=== PATIENT | male | born 1950 | race Caucasian/White ===

== ENCOUNTER 2017-05-26 13:03 | Inpatient (IN) | payer MEDICARE, OTHER, SELFPAY ==
[2017-05-26] VITALS (21 sets, daily range): BP systolic 115–202; BP diastolic 79–119; PULSE 109–125; RESP 13–28; TEMP 36–36.7; O2SAT 94–100; BMI 30.7; BMI 29.7
--- NOTE | 2017-05-26 13:38 | EKG12_ITS ---
Test Reason : ABD PAIN Blood Pressure : / mmHG Vent. Rate : 137 BPM Atrial Rate : 249 BPM P-R Int : 000 ms QRS Dur : 088 ms QT Int : 318 ms P-R-T Axes : 000 039 101 degrees QTc Int : 480 ms Atrial flutter with variable A-V block Nonspecific T wave abnormality Abnormal ECG Confirmed by STEPHANIE ALVARENGA ([id number]), photograph editor BRENNA MIMS ([id number]) on 05/29/2017 1:16:53 PM Referred By: ANNIKA Confirmed By:STEPHANIE ALVARENGA
--- NOTE | 2017-05-26 13:40 | VDLE_ITS ---
Reason For Study: LEG SWELLING RIGHT LEFT GSV is normal. CFV is compressible, spontaneous, phasic, CFV is compressible, spontaneous, competent competent, and demonstrates normal and demonstrates pulsatile venous flow. augmentation. FV is compressible, spontaneous, competent and demonstrates pulsatile venous flow. POP V is compressible, spontaneous, competent and demonstrates pulsatile venous flow. T/P Trunk is compressible. PTV is compressible. RT PerV is compressible. Procedure Exam performed portable in ED. A preliminary report was called and/or faxed to Dr. Yadav. Interpretation Summary There is no evidence of right lower extremity deep vein thrombosis. Right greater saphenous vein appears patent and compressible segmentally. Pulsitile venous flow noted consistent with proximal venous hypertension. Clinical correlation would be appropriate. Normal flow patterns left common femoral vein.. Ordering Physician: Christie Yadav Referring Physician: Young Emerson MD Performed By: Stephany Anna RVT
--- NOTE | 2017-05-26 13:44 | NURSING ---
NO OLD EKGS
[2017-05-26 14:09] LABS: Absolute Lymphocyte Count 2.17 X10^3/ul (0.83-4.51); Absolute Neutrophil Count 9.7 X10^3/uL (2.0-7.7); Basophil# 0.11 X10^3/uL; Basophil% 0.8 % (0-1); Eosinophil# 0.17 X10^3/uL; Eosinophils% 1.3 % (0-5); Hematocrit 44.1 % (40-54); Hemoglobin 14.2 g/dl (13.0-16.5); Lymphocyte # 2.17 X10^3/ul (4.0); Lymphocyte % 16.4 % (19-41); Mean Corp Hgb Conc 32.2 g/gl (32-36); Mean Corpuscular Hgb 29.7 pg (27.0-32.0); Mean Corpuscular Volume 92.3 fL (80-94); Mean Platelet Vol. 10.7 fl (6.2-12.0); Monocyte# 0.99 X10^3/uL; Monocyte% 7.5 % (0-10); Neutrophil # 9.74 X10^3/uL (2.7-7.7); Neutrophil % 73.8 % (47-70); Platelet Count 210 K/mm3 (150-450); RBC Distribution Width CV 14.1 % (11.6-14.6); RBC Distribution Width SD 46.1 fl (35.1-43.9); Red Blood Count 4.78 M/mm3 (4.6-6.2); White Blood Count 13.2 K/mm3 (4.4-11.0)
[2017-05-26 14:11] LABS: POSITIVE COUNT NO; POSITIVE DIFFERENTIAL NO; POSITIVE MORPHOLOGY NO
[2017-05-26 14:25] LABS: AST(SGOT) 25 U/L (15-37); Alanine Aminotransfer ALT/SGPT 55 U/L (12-78); Albumin, Serum 3.8 g/dL (3.4-5.0); Alkaline Phosphatase 96 U/L (45-117); Anion Gap 11 (5-15); BUN 19 mg/dL (7-18); BUN/Creat Ratio 14.4 RATIO (10-20); Calcium,Total 8.9 mg/dL (8.5-10.1); Chloride 108 mmol/L (98-107); Creatinine, Serum 1.32 mg/dL (0.70-1.30); EST Glomerular Filtration Rate 58 mL/min (>60); Est Glom Filt Rate - Afr Amer 70 mL/min (>60); Estimated Creatinine Clearance 63.05 ml/min; Globulin 3.5 g/dL (2.2-4.2); Glucose 110 mg/dL (70-110); Lipase 116 U/L (73-393); Potassium 4.3 mmol/L (3.5-5.1); Protein, Total 7.3 g/dL (6.4-8.2); Sodium Level 141 mmol/L (136-145)
[2017-05-26 14:26] LABS: D-Dimer Quantitative (DVT/PE) 0.84 FEU/ug/m (0.27-0.49)
--- NOTE | 2017-05-26 14:27 | ED.RN ---
D DIMER 0.84. DR ROBLERO AWARE
--- NOTE | 2017-05-26 14:28 | RAD_ITS ---
STUDY: X-RAY CHEST REASON FOR EXAM: Male, 66 years old. Shortness of breath. TECHNIQUE: Single AP portable view of the chest. COMPARISON: None. FINDINGS: EKG electrodes are seen. There is enterogastric congestion and mild CHF. There is no demonstrated pleural abnormality. There is moderate cardiac enlargement. Normal mediastinum and davion. Normal visualized pulmonary arteries. Normal visualized aortic arch and descending thoracic aorta. Normal visualized thoracic spine. Normal visualized ribs, clavicles, and shoulders. There is no demonstrated abnormality of the visualized soft tissue structures of the upper abdomen. RAD/Chest 1 View (Portable) IMPRESSION: Vascular congestion and mild CHF. Cardiomegaly. Electronically Signed: Felix Jiménez MD at 15:23 EST Tel [phone], Service support ,
[2017-05-26 14:30] LABS: BNP,B-Type NATRIURETIC PEPTIDE 874.6 pg/mL (0-100)
[2017-05-26] MEDS: dilTIAZem 25 MG/5 ML Vial 10 MG IV BOLUS (14:40)
[2017-05-26] MEDS: dilTIAZem 25 MG/5 ML Vial 20 MG IV BOLUS (15:20)
--- NOTE | 2017-05-26 15:48 | ED.VISSUMM ---
- ER Visit Summary Date of Service: 05/26/17 Chief Complaint: Shortness of breath and abdominal swelling History of Present Illness: The patient is a 66 M with progressive shortness of breath since . He states that he was really bad the week after but never returned to his baseline. He states that he is now unable to lie down due to shortness of breath. He has had increased swelling of his abdomen and his right leg. He was seen by Dr. Young Emerson in the office today and sent to the emergency room. Past medical history significant for atrial flutter. Patient was treated at [facility] in [place] in 2012 for this. He tells me he was on IV medication for 2 weeks to get his rate controlled. He had a heart cath at that time and he tells me there were no blockages. He also had a LAYLA at that time. Patient is currently only on lisinopril. Physical Examination: Blood pressures 202/111, temperature 98.0, heart rate 109, respiratory rate 18, pulse ox 96% on room air. Head and neck examination is unremarkable. Heart is tachycardic. Lung sounds are diminished at the bases. He is speaking full sentences. Abdomen is soft with no focal tenderness but he is distended. He does have 3+ right lower extremity edema 2+ left lower extremity edema. Test Results: EKG reveals atrial flutter with a rate of 137. Lateral T-wave inversions are noted. Portable chest x-ray shows vascular congestion and mild CHF. CBC was a white count of 13.2. Chemistry studies reveal BUN 13 and creatinine 1.32. LFTs and lipase are normal. Troponin is 0.03. BNP is 874. D-dimer 0.84. Venous ultrasound of the right leg is obtained and is unremarkable. Emergency Department Course and Treatment: Patient had 2 doses of Cardizem given, 10 mg followed by 20 mg. Heart rate remains in the 120s. Blood pressure is currently 144/96. I spoke with Dr. Francis, on-call for cardiology. He asked that we start an amiodarone drip and treat the patient with Lovenox and IV Lasix. In regards to his elevated d-dimer, patient is not able to lie down flat for a CT of his chest, and he is treated with Lovenox regardless. My suspicion for a PE is very low. Treatment Plan: [] Disposition: Admit Impression: 1. Atrial flutter with RVR 2. CHF This note was generated with [employer] dictation software. It may contain incorrect words, spelling, and punctuation that were not noted in review of the chart prior to signing ED Disposition - Plan for ED Patient: Chief Complaint: Abd Pain Referrals: Young Emerson MD [Primary Care Provider] -
--- NOTE | 2017-05-26 15:52 | ED.DCSUM_ITS ---
- ER Visit Summary Date of Service: 05/26/17 Chief Complaint: Shortness of breath and abdominal swelling History of Present Illness: The patient is a 66 M with progressive shortness of breath since . He states that he was really bad the week after but never returned to his baseline. He states that he is now unable to lie down due to shortness of breath. He has had increased swelling of his abdomen and his right leg. He was seen by Dr. Young Emerson in the office today and sent to the emergency room. Past medical history significant for atrial flutter. Patient was treated at [facility] in [place] in 2012 for this. He tells me he was on IV medication for 2 weeks to get his rate controlled. He had a heart cath at that time and he tells me there were no blockages. He also had a LAYLA at that time. Patient is currently only on lisinopril. Physical Examination: Blood pressures 202/111, temperature 98.0, heart rate 109 , respiratory rate 18, pulse ox 96% on room air. Head and neck examination is unremarkable. Heart is tachycardic. Lung sounds are diminished at the bases. He is speaking full sentences. Abdomen is soft with no focal tenderness but he is distended. He does have 3+ right lower extremity edema 2+ left lower extremity edema. Test Results: EKG reveals atrial flutter with a rate of 137. Lateral T-wave inversions are noted. Portable chest x-ray shows vascular congestion and mild CHF. CBC was a white count of 13.2. Chemistry studies reveal BUN 13 and creatinine 1.32. LFTs and lipase are normal. Troponin is 0.03. BNP is 874. D -dimer 0.84. Venous ultrasound of the right leg is obtained and is unremarkable. Emergency Department Course and Treatment: Patient had 2 doses of Cardizem given , 10 mg followed by 20 mg. Heart rate remains in the 120s. Blood pressure is currently 144/96. I spoke with Dr. Francis, on-call for cardiology. He asked that we start an amiodarone drip and treat the patient with Lovenox and IV Lasix. In regards to his elevated d-dimer, patient is not able to lie down flat for a CT of his chest, and he is treated with Lovenox regardless. My suspicion for a PE is very low. Treatment Plan: [] Disposition: Admit Impression: 1. Atrial flutter with RVR 2. CHF This note was generated with [employer] dictation software. It may contain incorrect words, spelling, and punctuation that were not noted in review of the chart prior to signing ED Disposition - Plan for ED Patient: Chief Complaint: Abd Pain Referrals: Young Emerson MD [Primary Care Provider] -
--- NOTE | 2017-05-26 16:02 | NURSING ---
114 CHF EXAC WITH AFLUTTER WITH RVR JAMES
[2017-05-26] MEDS: Furosemide 40 MG/4 ML Vial IV (16:03)
[2017-05-26] MEDS: Enoxaparin 100 MG/ML Syringe 110 MG SC (16:04)
--- NOTE | 2017-05-26 17:17 | PCM.CONS.C ---
Problem List (1) Atrial flutter by electrocardiogram Status: Acute (2) Dyspnea Status: Acute (3) Edema Status: Acute Reason for Consult Date of Consultation: 05/26/17 Reason for Consultation: Atrial flutter, atrial fibrillation, hypertension, lower extremity edema, shortness of breath/dyspnea on exertion. History of Present Illness: The patient is a 66 year old M, nondiabetic, previous smoker of approximately 30 pack years, quit about 1 year ago, previous heavy drinker for approximately 30 years as well again quit about 1 year ago. 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 Ashlie Nunez [facility] for what sounds like atrial fibrillation first diagnosed in 2012. According to the patient at that time he presented with atrial fibrillation and underwent a left heart catheterization via his right radial approach which was reportedly negative, followed by LAYLA guided DC cardioversion. Patient was transiently on sotalol and Toprol, but is no longer on that. In 2015, the patient noted bright red blood per rectum and sought medical attention and underwent a colonoscopy which according to the patient demonstrated diverticulosis and internal hemorrhoids. He has had no further episodes up until recently of bright red blood per rectum. In March 2016, around [facility], the patient describes a flulike illness for approximately 2 weeks time which required him to be bedbound and convalesced on his own. He did not seek medical attention. He never quite felt back to himself after he recovered and is complained of shortness of breath, fatigue, dyspnea on exertion since that time. Over the last 3 weeks he has had progressively worsening lower extremity edema, particularly on the right lower extremity, shortness of breath, dyspnea on exertion, orthopnea and PND requiring him to sleep only in an upright recliner. Patient sought medical consultation with his PCP Dr. Young Emerson today describing his shortness of breath and bright red blood per rectum. He was found to be tachycardic and referred immediately to [facility] ER. In the ER his EKG showed atrial flutter with 2-1 conduction, no acute changes. The patient also complained of palpitations over the last several weeks. The patient used to drink a copious amount of caffeine but now drinks less than one pot of coffee on a day, does not drink alcohol, denies any illegal drugs. He cannot recall why he is no longer on sotalol. Patient was given 2 doses of IV Cardizem in the ER which did not change his heart rate whatsoever, and was started on amiodarone drip. Pulmonary ultrasound of his right lower extremity demonstrated no evidence of DVT. No CTA has been performed as of yet. D-dimer was mildly elevated at 0.84. Troponins are negative per [] Past Medical History Allergies/Adverse Reactions: Allergies No Known Allergies Allergy (Verified 05/26/17 13:08) Home Medications: Ambulatory Orders Medication Instructions Recorded Lisinopril [Zestril] 10 mg PO DAILY 05/26/17 Smoking Status: Former smoker Review of Systems - Review of Systems General: Denies: Fever, Night Sweats, Fatigue Cardiovascular: Reports: Shortness of Breath with Exertion, Peripheral Edema, Palpitations. Denies: Chest Discomfort, Shortness of Breath, Orthopnea, PND, Lightheadedness, Dizziness, Near Syncope, Syncope Respiratory: Denies: Cough, Sputum Production, Hemoptysis Gastrointestinal: Denies: Hematemesis, Hematochezia, Melena Genitourinary: Denies: Dysuria, Hematuria Skin: Denies: Rash Subjectve: Patient laying in bed, no acute distress. Objective: Vital Signs Temp Pulse Resp BP Pulse Ox 98.1 F 124 H 19 H 153/114 H 97 05/26/17 17:07 05/26/17 17:07 05/26/17 17:07 05/26/17 17:07 05/26/17 17:07 Oxygen Flow Rate 2 Oxygen Delivery Method Room Air Weight: 225 lb 8.526 oz Body Mass Index (BMI) 29.7 General: Awake, Alert, Oriented x 3 HEENT: PERRL, EOMI, Sclera Non Icteric Neck: Supple, Good ROM, No Lymph Node Enlargement Lungs: Clear to auscultation Cardiovascular: Regular Rhythm, Normal S1, Normal S2, No Murmurs, No Rubs, No Gallops Vascular: No Carotid Bruits, Normal Femoral Pulses, Normal Radial Pulses, Normal Dorsalis Pedal Pulse, Normal Posterior Tibial Pulses Abdomen: Bowel Sounds Present, Soft, Non Tender, No HSM, No Organomegaly Extremities: No Cyanosis, No Clubbing, No edema Neurological: No Focal Motor or Sensory Deficit Rhythm: EKG: Atrial flutter with 2-1 conduction, no acute changes. ECHO: Pending. Stress Test: Cardiac Cath: PCI: CT Surgery: Holter monitor: EPS: PPM: CXR: Chest CT Scan: Assessment/Plan 1. Atrial flutter: Patient appears to be in atrial flutter with 2-1 conduction and a heart rate of around 125 bpm. Patient had received 2 doses of IV Cardizem without much effect. Apparently the patient has a known history of atrial fibrillation in the past, however he has not been on anticoagulation and is no longer on sotalol or beta-foreign therapy. I recommend that we continue IV amiodarone therapy in attempt to control his heart rate, combined with starting him on Coreg 6.25 mg p.o. twice daily in an attempt to control his heart rate and his blood pressure. Recommend ruling him out for myocardial infarction with troponins ?3 sets, and if abnormal he may require repeat catheterization. In addition I recommend subcu Lovenox 1 mg/kg subcu twice daily for any coagulation coverage while he is in atrial flutter. In addition I recommend checking his TSH and T4. Recommend that we undergo a 2D echo with Doppler to determine if he has any cardiomyopathy as a result of his arrhythmia. In addition I recommend that we attempt to find his catheterization results from 2012 at [facility] in [place] to confirm that his coronary arteries had no significant coronary disease. If the patient's atrial flutter is unable to be controlled with an a hypertensive and antiarrhythmic therapy, the patient may require a LAYLA guided DC cardioversion. In addition he may require EP evaluation as he has a history of bright red blood per rectum, diverticulosis and hemorrhoids and is not a good long-term anticoagulation therapy patient. 2. Biventricular failure: Patient has evidence of biventricular failure given his orthopnea, PND, shortness of breath and lower extremity edema. Patient may have had a cardiomyopathy as a result of his flulike illness and March 2016. Echocardiogram is pending. Recommend IV Lasix 40 mg twice daily until he reaches his dry weight. Ultrasound of his right lower extremity is negative for thrombus. There may want to consider CTA of his chest to rule out pulmonary embolism. 3. Thank you very much for the opportunity to precipitate the cardiac care of your patient. Consultation time took place between 445 and 5:25 PM. Code Visit Inpatient E&M: 75543 Init Hosp L2
--- NOTE | 2017-05-26 17:28 | ECHOD_ITS ---
Reason For Study: AFIB/FLUTTER Procedure This was a 2D Doppler, Color Flow transthoracic echocardiogram. Exam performed portable in patient room. Left Ventricle Severely dilated left ventricle. The estimated ejection fraction is 10-15 %. Basal anteroseptal: Akinetic. Mid-Anterior : Severely Hypokinetic. Mid-Inferior: Severely Hypokinetic. There are regional wall motion abnormalities as specified. Right Ventricle Moderately dilated right ventricle. Normal systolic function. Atria The left atrium is severely enlarged. The right atrium is severely enlarged. Normal atrial septum. Mitral Valve The mitral valve is structurally normal. No prolapse or stenosis seen. Tricuspid Valve Normal tricuspid valve. Trivial tricuspid valve insufficiency. Right ventricular systolic pressure estimated to be 42 mmHg. Mild pulmonary hypertension. Aortic Valve Trisinus/trileaflet aortic valve. Pulmonic Valve Normal pulmonic valve. Great Vessels Normal aortic root. Normal arch. Normal inferior vena cava. Inferior vena cava collapse with sniff. Pericardium/Pleural No pericardial effusion. MMode/2D Measurements & Calculations LVIDd: 6.1 cm IVSd: 1.1 cm Ao root diam: 3.4 cm LVIDs: 5.3 cm LVPWd: 1.3 cm LA dimension: 4.2 cm RVDd: 3.0 cm FS: 12.9 % LAV(MOD-bp): 90.0 ml LA A4 area: 26.5 cm2 RA A4 area: 26.7 cm2 LAV(MOD-bp) Indexed: 39.8 ml/m2 LAV(MOD-sp2): 83.9 ml LAV(MOD-sp4): 93.6 ml Doppler Measurements & Calculations MV E max ben: 100.8 cm/sec Lat Peak E' Ben: 4.1 cm/sec Med Peak E' Ben: 3.9 cm/sec E/E' lat: 24.8 E/E' med: 26.0 Ao V2 max: 85.8 cm/sec LV V1 max: 63.5 cm/sec PA V2 max: 55.3 cm/sec Ao max P.9 mmHg LV V1 max P.6 mmHg TR max ben: 234.1 cm/sec TR max P.0 mmHg Interpretation Summary Severely dilated left ventricle. The estimated ejection fraction is 10-15 %. Basal anteroseptal: Akinetic. Mid-Anterior : Severely Hypokinetic. Mid-Inferior: Severely Hypokinetic. There are regional wall motion abnormalities as specified. Moderately dilated right ventricle. The left atrium is severely enlarged. The right atrium is severely enlarged. Trivial tricuspid valve insufficiency. Right ventricular systolic pressure estimated to be 42 mmHg. Mild pulmonary hypertension. There is no comparison study available. Ordering Physician: José Miguel Francis Referring Physician: Young Emerson Performed By: Annmarie Kamara, LANCE, RVT
--- NOTE | 2017-05-26 17:29 | CT_ITS ---
STUDY: CTA CHEST REASON FOR EXAM: Male, 66 years old. Dyspnea, elevated d-dimer. RADIATION DOSAGE (If Supplied By Facility): CTDIvol = ( 14.42 ) mGy, DLP = ( 595.52 ) mGycm TECHNIQUE: The examination was performed with the intravenous administration of 100 ml of Isovue 370 contrast material. Post-processing of the angiographic images was performed, with multiplanar reformation and 3D reconstruction. Individualized dose optimization techniques were used for this CT. COMPARISON: None. FINDINGS: Normal enhancement of the main pulmonary artery and right and left pulmonary arteries. Normal enhancement of the bilateral peripheral pulmonary arteries. There is no demonstrated pulmonary embolism. Normal thoracic aorta and visualized great vessels. There is no demonstrated aortic dissection. Normal heart and pericardium. There are scattered mediastinal lymph nodes within the prevascular, aortopulmonary window and paratracheal space with small nodes extending to the right hilar region. Normal hilar regions. Normal visualized trachea and bronchi. The lungs are well expanded. Bilateral diffuse prominent upper lobe centrilobular emphysematous changes are present. There is a demonstrated right upper lobe pleural-based nodule measuring 7 mm as seen on series 2 image 15. Within the right lower lobe medial segment focal region of consolidation with underlying nodule not completely excluded as seen on series 2 image 48. Small right pleural effusion is present. Normal chest wall structures. Normal osseous structures. Normal visualized upper abdomen. CT/CTA Chest W/WO Contrast IMPRESSION: 1. No evidence of pulmonary embolism or aortic dissection. 2. There is a small right pleural effusion with a right lower lobe medial pleural region of consolidation with underlying nodule not excluded. There is an additional right upper lobe pleural-based 7 mm nodule. Multiple mediastinal dominant conglomerate lymph nodes are noted with some extent to the right hilar region. Overall concern is for infectious etiology and pleural effusion with reactive lymphadenopathy. Recommend follow-up imaging to document stability versus resolution as underlying neoplastic process is not excluded. Additional follow-up likely necessary if right upper lobe pleural nodule persists. Electronically Signed: Haroon Hyatt DO at 19:40 EST , Service support ,
--- NOTE | 2017-05-26 18:09 | HP.PCM_ITS ---
Problem List (1) Atrial fibrillation with RVR Status: Acute (2) CHF (congestive heart failure) Status: Acute (3) Diverticulosis Status: Chronic (4) Internal hemorrhoid Status: Chronic (5) GI bleed Status: Chronic (6) Atrial flutter by electrocardiogram Status: Chronic History of Present Illness Date of Admission: 05/26/17 Chief Complaint: shortness of breath The patient is a 66 year old M presents with dyspnea on exertion is been going on for the past month. Patient said that before this patient had an illness that he described as the flu where he is having fevers chills and malaise. Patient is also been having constipation. Yesterday, while watching the first football player came, patient felt that he had wet himself going to find out that he had nuha hematochezia. That resolved after about 15 minutes and has had 6 bowel movements since and have all been without blood or melena. Patient was concerned about some right upper quadrant pain is having as well as constipation and saw his primary care doctor, Dr. Emerson, today. There is been was concerned and sent the patient to the emergency room. Patient was found in CHF plus atrial fibrillation with RVR. Patient did receive IV Lasix and as well as a therapeutic dose Lovenox. Patient was seen by cardiology and has been started on amiodarone drip but his heart rate still is in the 120s. [] Past Medical History Past Medical History (Chronic Problems): Chronic Problems Atrial flutter by electrocardiogram (Chronic) Diverticulosis (Chronic) Internal hemorrhoid (Chronic) GI bleed (Chronic) Allergies No Known Allergies Allergy (Verified 05/26/17 13:08) Home Medications: Ambulatory Orders Medication Instructions Recorded Lisinopril [Zestril] 10 mg PO DAILY 05/26/17 Lives: With Family Smoking Status: Former smoker - *Family History Maternal History Items: Heart Disease - Atrial fibrillation Paternal History Items: Heart Disease - Coronary artery disease Review of Systems Constitutional: Denies: Chills, Fever, Weight Change Eyes: Denies: Blurred vision, Double vision HEENT: Denies: Head Aches, Sinus Congestion, Sinus Drainage Cardiovascular: Reports: Edema, Orthopnea. Denies: Chest Pain, Palpitations Respiratory: Reports: Shortness of breath upon exertion. Denies: Cough, Shortness of breath at rest, Sputum production Gastrointestinal: Reports: Abdominal Pain - Right upper quadrant, Constipation, Hematochezia. Denies: Nausea, Vomiting Genitourinary: Denies: Dysuria Musculoskeletal: Denies: Joint Pain, Joint Tenderness Skin: Denies: Rash, Wounds Neurological: Denies: Numbness, Tingling, Focal weakness Psychiatric: Denies: Anxiety, Depression, Homicidal Ideations, Suicidal Ideations Hematologic/ Lymphatic: Reports: Easy Bleeding. Denies: Easy Bruising, Hx of blood clot VTE Information - Inpt Only VTE Present on Admission: No VTE Pharm Prophylaxis ordered?: Yes Patient Problems: Active and Suspected Problems Dyspnea (Acute) Edema (Acute) Atrial fibrillation with RVR (Acute) CHF (congestive heart failure) (Acute) - Physical Exam General: Alert, Oriented x3, Cooperative HEENT: Atraumatic, Normocephalic, - - No scleral icterus Neck: No JVD, No Nuchal Rigidity, Thyroid Normal Size and Texture Lungs: Clear to auscultation, Diminished Cardiovascular: Irregular Rate, Tachycardic Abdomen: Bowel Sounds Present, Soft, Non Tender, Non-Distended, No Hepato- splenomegaly Extremities: No Calf Tenderness, Edema Skin: No rashes, No breakdown Musculoskeletal: No Tenderness to Palpation of Joints or Extremities Neurological: Neuro grossly intact, Sensory exam intact to light touch and pain Psych/Mental Status: Normal Affect, Appropriate Vital Signs Temp Pulse Resp BP Pulse Ox 36.7 C 123 H 18 154/110 H 96 05/26/17 17:30 05/26/17 17:30 05/26/17 17:30 05/26/17 17:30 05/26/17 17:30 Oxygen Flow Rate 2 Oxygen Delivery Method Room Air Weight: 102.3 kg Body Mass Index (BMI) 29.7 EKG showed atrial fibrillation with RVR. Chest x-ray reviewed and showed bilateral pulmonary edema. Laboratory Results 05/26/17 05/26/17 05/26/17 13:55 13:55 13:55 WBC RBC Hgb Hct MCV MCH MCHC RDW RDW Differential Plt Count MPV Immature Gran % (Auto) Neut % (Auto) Lymph % (Auto) Holt % (Auto) Eos % (Auto) Baso % (Auto) Absolute Neuts (auto) Absolute Lymphs (auto) Total Counted D-Dimer Quant (PE/DVT) 0.84 H* Sodium 141 Potassium 4.3 Chloride 108 H Carbon Dioxide 22.0 Anion Gap 11 BUN 19 H Creatinine 1.32 H Estim Creat Clear Calc 63.05 Est GFR (MDRD) Af Amer 70 Est GFR (MDRD) Non-Af 58 L BUN/Creatinine Ratio 14.4 Glucose 110 Calcium 8.9 Total Bilirubin 0.90 Direct Bilirubin 0.30 AST 25 ALT 55 Alkaline Phosphatase 96 Troponin I 0.03 B-Natriuretic Peptide 874.6 H Total Protein 7.3 Albumin 3.8 Globulin 3.5 Lipase 116 05/26/17 13:55 WBC 13.2 H RBC 4.78 Hgb 14.2 Hct 44.1 MCV 92.3 MCH 29.7 MCHC 32.2 RDW 14.1 RDW Differential 46.1 H Plt Count 210 MPV 10.7 Immature Gran % (Auto) 0.200 Neut % (Auto) 73.8 H Lymph % (Auto) 16.4 L Holt % (Auto) 7.5 Eos % (Auto) 1.3 Baso % (Auto) 0.8 Absolute Neuts (auto) 9.7 H Absolute Lymphs (auto) 2.17 Total Counted Not Reportable D-Dimer Quant (PE/DVT) Sodium Potassium Chloride Carbon Dioxide Anion Gap BUN Creatinine Estim Creat Clear Calc Est GFR (MDRD) Af Amer Est GFR (MDRD) Non-Af BUN/Creatinine Ratio Glucose Calcium Total Bilirubin Direct Bilirubin AST ALT Alkaline Phosphatase Troponin I B-Natriuretic Peptide Total Protein Albumin Globulin Lipase Assessment/Plan Active and Suspected Problems Dyspnea (Acute) Edema (Acute) Atrial fibrillation with RVR (Acute) CHF (congestive heart failure) (Acute) 1. Acute heart failure: Echo ordered. Patient on carvedilol, lisinopril and IV Lasix. Cardiology following. 2. Atrial fibrillation with RVR Patient has a known history of atrial fibrillation on amiodarone drip Chads vas score is 3 Patient has been started on Lovenox 3. Right upper quadrant abdominal pain Exam is unremarkable and negative Clemons sign We will check a ultrasound 4. GI bleed Resolved Patient notes a history of internal hemorrhoids as well as diverticulosis. Patient had a colonoscopy 2 years ago that showed no masses at that time. Would just monitor for now but is my feeling that this is likely due to his internal hemorrhoids or diverticulosis. Patient is certainly at higher likelihood to bleed given the fact that he is on therapeutic Lovenox at this time. 5. DVT prophylaxis: Patient is currently anticoagulated. Code Visit Inpatient E&M: 00674 Init Hosp L3
[2017-05-26 18:44] LABS: Cholesterol 166 mg/dL (200); High Density Lipoprotein 27 mg/dL; T4 Free Direct 1.05 ng/dL (0.76-1.46); Thyroid Stim Hormone (TSH) 4.48 uIU/mL (0.358-3.74); Triglycerides 119 mg/dL; Very Low Density Lipoprotein 24 mg/dL (5-40)
[2017-05-26] MEDS: Carvedilol 6.25 MG Tablet PO (21:27)
[2017-05-26] MEDS: Lisinopril 10 MG Tablet PO (21:31)
[2017-05-27] VITALS (27 sets, daily range): BP systolic 114–139; BP diastolic 68–124; PULSE 70–119; RESP 11–23; TEMP 36–36.8; O2SAT 94–100
[2017-05-27 05:17] LABS: Hematocrit 38.9 % (40-54); Hemoglobin 12.8 g/dl (13.0-16.5); Mean Corp Hgb Conc 32.9 g/gl (32-36); Mean Corpuscular Hgb 30.4 pg (27.0-32.0); Mean Corpuscular Volume 92.4 fL (80-94); Platelet Count 165 K/mm3 (150-450); RBC Distribution Width SD 46.1 fl (35.1-43.9); Red Blood Count 4.21 M/mm3 (4.6-6.2); White Blood Count 9.5 K/mm3 (4.4-11.0)
[2017-05-27 05:35] LABS: Scan Indicated on CBC? Y/N NO
[2017-05-27 05:40] LABS: Anion Gap 7 (5-15); BUN 20 mg/dL (7-18); BUN/Creat Ratio 14.9 RATIO (10-20); Calcium,Total 8.4 mg/dL (8.5-10.1); Chloride 107 mmol/L (98-107); Creatinine, Serum 1.34 mg/dL (0.70-1.30); EST Glomerular Filtration Rate 57 mL/min (>60); Est Glom Filt Rate - Afr Amer 69 mL/min (>60); Estimated Creatinine Clearance 62.11 ml/min; Glucose 111 mg/dL (70-110); Sodium Level 139 mmol/L (136-145)
[2017-05-27] MEDS: Carvedilol 6.25 MG Tablet PO ×2 (08:51→21:25)
[2017-05-27] MEDS: 0.9% NaCl Peripheral Flush Adult/Peds IV ×2 (08:52→17:51)
[2017-05-27] MEDS: Furosemide 40 MG/4 ML Vial IV ×2 (08:52→17:51)
--- NOTE | 2017-05-27 09:51 | PCM.PN.CARD ---
Subjectve: Patient feels much better today, off of oxygen, shortness of breath is resolving, but still unable to lay down flat completely. No anginal or chest pain. Still remains in atrial flutter with better rate control. Pulmonary echocardiogram at the bedside shows severe LV dysfunction with biventricular enlargement with an EF around 10-15%. Objective: Vital Signs Temp Pulse Resp BP Pulse Ox 98.3 F 118 H 23 H 128/102 H 97 05/27/17 09:00 05/27/17 09:00 05/27/17 09:00 05/27/17 09:00 05/27/17 09:00 Oxygen Flow Rate 2 Oxygen Delivery Method Room Air Weight: 222 lb 0.088 oz Body Mass Index (BMI) 29.7 Intake and Output for Last 24 Hours 05/25/17 05/26/17 05/27/17 23:59 23:59 23:59 Intake Total 33.9 / 33.9 1144 / 1144 Output Total 850 / 850 Balance 33.9 / 33.9 294 / 294 General: Awake, Alert, Oriented x 3 HEENT: PERRL, EOMI, Sclera Non Icteric Neck: Supple, Good ROM, No Lymph Node Enlargement Lungs: Clear to auscultation Cardiovascular: Irregular Rhythm, Normal S1, Normal S2, No Murmurs, No Rubs, No Gallops Vascular: No Carotid Bruits, Normal Femoral Pulses, Normal Radial Pulses, Normal Dorsalis Pedal Pulse, Normal Posterior Tibial Pulses Abdomen: Bowel Sounds Present, Soft, Non Tender, No HSM, No Organomegaly Extremities: No Cyanosis, No Clubbing, No edema Neurological: No Focal Motor or Sensory Deficit 05/26/17 21:20: Troponin I 0.02 05/27/17 01:29: Troponin I 0.03 05/27/17 05:04: WBC 9.5, RBC 4.21 L, Hgb 12.8 L, Hct 38.9 L, MCV 92.4, MCH 30.4, MCHC 32.9, RDW 14.0, RDW Differential 46.1 H, Plt Count 165, MPV 11.0 05/27/17 05:04: Sodium 139, Potassium 4.0, Chloride 107, Carbon Dioxide 25.0, Anion Gap 7, BUN 20 H, Creatinine 1.34 H, Est GFR (MDRD) Af Amer 69, Est GFR (MDRD) Non-Af 57 L, BUN/Creatinine Ratio 14.9, Glucose 111 H, Calcium 8.4 L 05/27/17 05:04: Troponin I 0.02 Rhythm: Atrial flutter with controlled ventricular response. EKG: Pending. ECHO: Preliminary result shows biventricular enlargement with an EF around 10-15%, severe biatrial enlargement, final result pending. Stress Test: Cardiac Cath: Pending tomorrow PCI: CT Surgery: Holter monitor: EPS: PPM: CXR: Chest CT Scan: Assessment/Plan 1. Atrial flutter: Patient appears to be in atrial flutter with 2-1 conduction and a heart rate of around 125 bpm, now better controlled in the 1 teens but still tachycardic. Patient had received 2 doses of IV Cardizem emergency room without much effect. Apparently the patient has a known history of atrial fibrillation in the past, however he has not been on anticoagulation and is no longer on sotalol or beta-foreign therapy. Given the patient's severe LV dysfunction, I would not recommend sotalol at this time. I believe the only option would be amiodarone transition from IV to p.o. once his heart rate becomes better controlled and his human dynamic status is optimized. I recommend that we continue IV amiodarone therapy in attempt to control his heart rate, combined with starting him on Coreg 6.25 mg p.o. twice daily starting today, and titrating this up from there as his diuresis continues, in an attempt to control his heart rate and his blood pressure. His troponins are negative ?3, and his CT scan is negative for pulmonary embolism to help explain his lower extremity edema and shortness of breath. 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 His symptoms appear to occur after a viral illness in March 2016. I recommend that he undergo 1 more day of IV diuretic therapy so that he can lay flat for a left and right heart catheterization tomorrow morning. In anticipation of that we will continue baby aspirin and loaded with Plavix 300 mg p.o. ?1 now. We will hold his Lovenox tomorrow morning. In addition I recommend subcu Lovenox 1 mg/kg subcu twice daily for any coagulation coverage while he is in atrial flutter. Patient's TSH is slightly elevated but his T4 is within normal limits. Continue amiodarone therapy. In addition I recommend that we attempt to find his catheterization results from 2012 at [facility] in [place] to confirm that his coronary arteries had no significant coronary disease. If the patient's atrial flutter is unable to be controlled with an a hypertensive and antiarrhythmic therapy, the patient may require a LAYLA guided DC cardioversion. In addition he may require EP evaluation as he has a history of bright red blood per rectum, diverticulosis and hemorrhoids and is not a good long-term anticoagulation therapy patient. 2. Biventricular failure: Patient has evidence of biventricular failure given his orthopnea, PND, shortness of breath and lower extremity edema. Patient may have had a cardiomyopathy as a result of his flulike illness and March 2016. Echocardiogram is pending, but preliminary results suggest severe LV dysfunction with biventricular enlargement and biventricular dysfunction with an overall ejection fraction around 10-15%.. Recommend IV Lasix 40 mg twice daily until he reaches his dry weight. Ultrasound of his right lower extremity is negative for thrombus. Recommend discontinuation of lisinopril and starting him on Cozaar 50 mg p.o. daily and titrating up from there for his LV dysfunction. Patient no longer drinks, and no longer smokes. His cardiomyopathy may be a result of a combination of atrial arrhythmia and viral cardiomyopathy, possibly superimposed on previous heavy alcohol use. The risks/benefits of the cardiac catheterization procedure were thoroughly explained the patient with specific attention paid to lack of on-site surgical backup should there be an emergent complication, and the patient is agreed to proceed. 3. Thank you very much for the opportunity to precipitate the cardiac care of your patient. Code Visit Inpatient E&M: 92619 Subs Hosp L2
--- NOTE | 2017-05-27 09:58 | PN.CARD_ITS ---
Subjectve: Patient feels much better today, off of oxygen, shortness of breath is resolving , but still unable to lay down flat completely. No anginal or chest pain. Still remains in atrial flutter with better rate control. Pulmonary echocardiogram at the bedside shows severe LV dysfunction with biventricular enlargement with an EF around 10-15%. Objective: Vital Signs Temp Pulse Resp BP Pulse Ox 98.3 F 118 H 23 H 128/102 H 97 05/27/17 09:00 05/27/17 09:00 05/27/17 09:00 05/27/17 09:00 05/27/17 09:00 Oxygen Flow Rate 2 Oxygen Delivery Method Room Air Weight: 222 lb 0.088 oz Body Mass Index (BMI) 29.7 Intake and Output for Last 24 Hours 05/25/17 05/26/17 05/27/17 23:59 23:59 23:59 Intake Total 33.9 / 33.9 1144 / 1144 Output Total 850 / 850 Balance 33.9 / 33.9 294 / 294 General: Awake, Alert, Oriented x 3 HEENT: PERRL, EOMI, Sclera Non Icteric Neck: Supple, Good ROM, No Lymph Node Enlargement Lungs: Clear to auscultation Cardiovascular: Irregular Rhythm, Normal S1, Normal S2, No Murmurs, No Rubs, No Gallops Vascular: No Carotid Bruits, Normal Femoral Pulses, Normal Radial Pulses, Normal Dorsalis Pedal Pulse, Normal Posterior Tibial Pulses Abdomen: Bowel Sounds Present, Soft, Non Tender, No HSM, No Organomegaly Extremities: No Cyanosis, No Clubbing, No edema Neurological: No Focal Motor or Sensory Deficit 05/26/17 21:20: Troponin I 0.02 05/27/17 01:29: Troponin I 0.03 05/27/17 05:04: WBC 9.5, RBC 4.21 L, Hgb 12.8 L, Hct 38.9 L, MCV 92.4, MCH 30.4 , MCHC 32.9, RDW 14.0, RDW Differential 46.1 H, Plt Count 165, MPV 11.0 05/27/17 05:04: Sodium 139, Potassium 4.0, Chloride 107, Carbon Dioxide 25.0, Anion Gap 7, BUN 20 H, Creatinine 1.34 H, Est GFR (MDRD) Af Amer 69, Est GFR ( MDRD) Non-Af 57 L, BUN/Creatinine Ratio 14.9, Glucose 111 H, Calcium 8.4 L 05/27/17 05:04: Troponin I 0.02 Rhythm: Atrial flutter with controlled ventricular response. EKG: Pending. ECHO: Preliminary result shows biventricular enlargement with an EF around 10-15 %, severe biatrial enlargement, final result pending. Stress Test: Cardiac Cath: Pending tomorrow PCI: CT Surgery: Holter monitor: EPS: PPM: CXR: Chest CT Scan: Assessment/Plan 1. Atrial flutter: Patient appears to be in atrial flutter with 2-1 conduction and a heart rate of around 125 bpm, now better controlled in the 1 teens but still tachycardic. Patient had received 2 doses of IV Cardizem emergency room without much effect. Apparently the patient has a known history of atrial fibrillation in the past, however he has not been on anticoagulation and is no longer on sotalol or beta-foreign therapy. Given the patient's severe LV dysfunction, I would not recommend sotalol at this time. I believe the only option would be amiodarone transition from IV to p.o. once his heart rate becomes better controlled and his human dynamic status is optimized. I recommend that we continue IV amiodarone therapy in attempt to control his heart rate, combined with starting him on Coreg 6.25 mg p.o. twice daily starting today, and titrating this up from there as his diuresis continues, in an attempt to control his heart rate and his blood pressure. His troponins are negative ?3, and his CT scan is negative for pulmonary embolism to help explain his lower extremity edema and shortness of breath. 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 His symptoms appear to occur after a viral illness in March 2016. I recommend that he undergo 1 more day of IV diuretic therapy so that he can lay flat for a left and right heart catheterization tomorrow morning. In anticipation of that we will continue baby aspirin and loaded with Plavix 300 mg p.o. ?1 now. We will hold his Lovenox tomorrow morning. In addition I recommend subcu Lovenox 1 mg/kg subcu twice daily for any coagulation coverage while he is in atrial flutter. Patient's TSH is slightly elevated but his T4 is within normal limits. Continue amiodarone therapy. In addition I recommend that we attempt to find his catheterization results from 2012 at [facility] in [place] to confirm that his coronary arteries had no significant coronary disease. If the patient's atrial flutter is unable to be controlled with an a hypertensive and antiarrhythmic therapy, the patient may require a LAYLA guided DC cardioversion. In addition he may require EP evaluation as he has a history of bright red blood per rectum, diverticulosis and hemorrhoids and is not a good long-term anticoagulation therapy patient. 2. Biventricular failure: Patient has evidence of biventricular failure given his orthopnea, PND, shortness of breath and lower extremity edema. Patient may have had a cardiomyopathy as a result of his flulike illness and March 2016. Echocardiogram is pending, but preliminary results suggest severe LV dysfunction with biventricular enlargement and biventricular dysfunction with an overall ejection fraction around 10-15%.. Recommend IV Lasix 40 mg twice daily until he reaches his dry weight. Ultrasound of his right lower extremity is negative for thrombus. Recommend discontinuation of lisinopril and starting him on Cozaar 50 mg p.o. daily and titrating up from there for his LV dysfunction. Patient no longer drinks, and no longer smokes. His cardiomyopathy may be a result of a combination of atrial arrhythmia and viral cardiomyopathy, possibly superimposed on previous heavy alcohol use. The risks/benefits of the cardiac catheterization procedure were thoroughly explained the patient with specific attention paid to lack of on-site surgical backup should there be an emergent complication, and the patient is agreed to proceed. 3. Thank you very much for the opportunity to precipitate the cardiac care of your patient. Code Visit Inpatient E&M: 24513 Subs Hosp L2
--- NOTE | 2017-05-27 10:37 | EKG12_ITS ---
Test Reason : AFIB Blood Pressure : / mmHG Vent. Rate : 118 BPM Atrial Rate : 118 BPM P-R Int : 194 ms QRS Dur : 092 ms QT Int : 348 ms P-R-T Axes : 000 042 148 degrees QTc Int : 487 ms Atrial flutter with 2:[address] & T wave abnormality, consider inferior ischemia ST & T wave abnormality, consider anterolateral ischemia Abnormal ECG When compared with ECG of 26-MAY-2017 13:59, MANUAL COMPARISON REQUIRED, DATA IS UNCONFIRMED Confirmed by STEPHANIE ALVARENGA ([id number]), business editor BRENNA MIMS ([id number] on 05/29/2017 2:07:20 PM Referred By: COLETTE Confirmed By:STEPHANIE ALVARENGA
[2017-05-27] MEDS: Clopidogrel Bisulfate 300 MG Tablet PO (11:22)
--- NOTE | 2017-05-27 12:09 | CASEMGMT ---
This RN CM to bedside to complete CM assessment and pt is getting care done at this time. Will attempt again later. SStsharon RN CM
[2017-05-27] MEDS: Losartan Potassium 50 MG Tablet PO (12:41)
--- NOTE | 2017-05-27 13:15 | PCM.PN.HOSP ---
Patient Problems: Active and Suspected Problems Dyspnea (Acute) Edema (Acute) Atrial fibrillation with RVR (Acute) CHF (congestive heart failure) (Acute) Subjective: Heart rate still is maintaining in the 1 teens. No shortness of breath. No further GI bleed but still is very constipated. Vitals/I&O's: Vital Signs Temp Pulse Resp BP Pulse Ox 36.7 C 118 H 20 H 116/85 H 96 05/27/17 12:00 05/27/17 12:00 05/27/17 12:00 05/27/17 12:00 05/27/17 12:00 Oxygen Flow Rate 2 Oxygen Delivery Method Room Air Weight: 100.7 kg Body Mass Index (BMI) 29.7 Intake and Output for Last 24 Hours 05/25/17 05/26/17 05/27/17 23:59 23:59 23:59 Intake Total 33.9 / 33.9 1611 / 1611 Output Total 2150 / 2150 Balance 33.9 / 33.9 -539 / -539 General: Alert, Cooperative, No apparent distress HEENT: Atraumatic, Normocephalic Oral: Moist Mucosa, No Gingival or Mucosal Lesions/ Ulcerations Neck: No Nodes, Thyroid Normal Size and Texture Lungs: Clear to auscultation, Normal air movement, No rhonchi, No wheeze Cardiovascular: Irregular Rate, Tachycardic Abdomen: Bowel Sounds Present, Soft, Non Tender, Non-Distended, No Hepato-splenomegaly Extremities: No Calf Tenderness, Edema Skin: No rashes, No breakdown Musculoskeletal: No Tenderness to Palpation of Joints or Extremities, No Muscle Wasting Neurological: Neuro grossly intact, Sensory exam intact to light touch and pain Psych/Mental Status: Normal Affect, Appropriate Laboratory Results 05/26/17 21:20: Troponin I 0.02 05/27/17 01:29: Troponin I 0.03 05/27/17 05:04: WBC 9.5, RBC 4.21 L, Hgb 12.8 L, Hct 38.9 L, MCV 92.4, MCH 30.4, MCHC 32.9, RDW 14.0, RDW Differential 46.1 H, Plt Count 165, MPV 11.0 05/27/17 05:04: Sodium 139, Potassium 4.0, Chloride 107, Carbon Dioxide 25.0, Anion Gap 7, BUN 20 H, Creatinine 1.34 H, Estim Creat Clear Calc 62.11, Est GFR (MDRD) Af Amer 69, Est GFR (MDRD) Non-Af 57 L, BUN/Creatinine Ratio 14.9, Glucose 111 H, Calcium 8.4 L 05/27/17 05:04: Troponin I 0.02 05/27/17 10:57: Troponin I < 0.02 Current Medications Acetaminophen (Tylenol) 650 mg PO Q6H PRN PRN PRN Reason: Mild Pain (scale 0-3)/T>100.7 Carvedilol (Coreg) 6.25 mg PO BID [facility] Last Admin: 05/27/17 08:51 Dose: 6.25 mg Clopidogrel Bisulfate (Plavix) 75 mg PO DAILY [facility] Diphenhydramine HCl (Benadryl) 50 mg PO X1 ONE Stop: 05/28/17 07:01 Enoxaparin Sodium (Lovenox) 100 mg 1 mg/kg (100 mg) SC Q12@0600,1800 [facility] Furosemide (Lasix) 40 mg IV BID@1000,1800 [facility] Last Admin: 05/27/17 08:52 Dose: 40 mg Amiodarone HCl 360 mg/ (Dextrose) 200 mls @ 16.66 mls/hr CONT INF .Q12H1M [facility] PRN Reason: 0.5 MG/MIN Stop: 05/28/17 22:59 Sodium Chloride () 1,000 mls @ 15 mls/hr IV .Q48H [facility] PRN Reason: KVO Losartan Potassium (Cozaar) 50 mg PO DAILY [facility] Last Admin: 05/27/17 12:41 Dose: 50 mg Magnesium Hydroxide (Milk Of Magnesia) 30 ml PO DAILY PRN PRN Reason: Constipation Ondansetron HCl (Zofran) 4 mg IV Q8H PRN PRN PRN Reason: Nausea Oxycodone HCl (Oxyir) 5 mg PO Q4H PRN PRN PRN Reason: Moderate Pain (pain scale 4-5) Sodium Chloride () 5 - 30 ml IV UD PRN PRN Reason: SALINE FLUSH Last Admin: 05/27/17 08:52 Dose: 10 ml Assessment/Plan Active and Suspected Problems Dyspnea (Acute) Edema (Acute) Atrial fibrillation with RVR (Acute) CHF (congestive heart failure) (Acute) 1. Acute heart failure with reduced ejection fraction: Ejection fraction of 10-15% patient on carvedilol, lisinopril and IV Lasix. Cardiology following. Plan for left heart catheterization tomorrow. Patient has been started on Plavix 2. Atrial fibrillation with RVR Patient has a known history of atrial fibrillation on amiodarone drip Chads vas score is 3 Patient has been started on Lovenox Heart rate improved but still tachycardic. 3. Right upper quadrant abdominal pain Gallbladder wall thickening on the ultrasound but no clinical Clemons sign May be related with constipation 4. GI bleed Resolved Patient notes a history of internal hemorrhoids as well as diverticulosis. Patient had a colonoscopy 2 years ago that showed no masses at that time. Would just monitor for now but is my feeling that this is likely due to his internal hemorrhoids or diverticulosis. Patient is certainly at higher likelihood to bleed given the fact that he is on therapeutic Lovenox at this time. 5. Constipation We will add senna and Dulcolax 6. DVT prophylaxis: Patient is currently anticoagulated. Code Visit Inpatient E&M: [id number] [facility] L3
--- NOTE | 2017-05-27 13:18 | PN_ITS ---
Patient Problems: Active and Suspected Problems Dyspnea (Acute) Edema (Acute) Atrial fibrillation with RVR (Acute) CHF (congestive heart failure) (Acute) Subjective: Heart rate still is maintaining in the 1 teens. No shortness of breath. No further GI bleed but still is very constipated. Vitals/I&O's: Vital Signs Temp Pulse Resp BP Pulse Ox 36.7 C 118 H 20 H 116/85 H 96 05/27/17 12:00 05/27/17 12:00 05/27/17 12:00 05/27/17 12:00 05/27/17 12:00 Oxygen Flow Rate 2 Oxygen Delivery Method Room Air Weight: 100.7 kg Body Mass Index (BMI) 29.7 Intake and Output for Last 24 Hours 05/25/17 05/26/17 05/27/17 23:59 23:59 23:59 Intake Total 33.9 / 33.9 1611 / 1611 Output Total 2150 / 2150 Balance 33.9 / 33.9 -539 / -539 General: Alert, Cooperative, No apparent distress HEENT: Atraumatic, Normocephalic Oral: Moist Mucosa, No Gingival or Mucosal Lesions/ Ulcerations Neck: No Nodes, Thyroid Normal Size and Texture Lungs: Clear to auscultation, Normal air movement, No rhonchi, No wheeze Cardiovascular: Irregular Rate, Tachycardic Abdomen: Bowel Sounds Present, Soft, Non Tender, Non-Distended, No Hepato- splenomegaly Extremities: No Calf Tenderness, Edema Skin: No rashes, No breakdown Musculoskeletal: No Tenderness to Palpation of Joints or Extremities, No Muscle Wasting Neurological: Neuro grossly intact, Sensory exam intact to light touch and pain Psych/Mental Status: Normal Affect, Appropriate Laboratory Results 05/26/17 21:20: Troponin I 0.02 05/27/17 01:29: Troponin I 0.03 05/27/17 05:04: WBC 9.5, RBC 4.21 L, Hgb 12.8 L, Hct 38.9 L, MCV 92.4, MCH 30.4 , MCHC 32.9, RDW 14.0, RDW Differential 46.1 H, Plt Count 165, MPV 11.0 05/27/17 05:04: Sodium 139, Potassium 4.0, Chloride 107, Carbon Dioxide 25.0, Anion Gap 7, BUN 20 H, Creatinine 1.34 H, Estim Creat Clear Calc 62.11, Est GFR (MDRD) Af Amer 69, Est GFR (MDRD) Non-Af 57 L, BUN/Creatinine Ratio 14.9, Glucose 111 H, Calcium 8.4 L 05/27/17 05:04: Troponin I 0.02 05/27/17 10:57: Troponin I < 0.02 Current Medications Acetaminophen (Tylenol) 650 mg PO Q6H PRN PRN PRN Reason: Mild Pain (scale 0-3)/T>100.7 Carvedilol (Coreg) 6.25 mg PO BID [facility] Last Admin: 05/27/17 08:51 Dose: 6.25 mg Clopidogrel Bisulfate (Plavix) 75 mg PO DAILY [facility] Diphenhydramine HCl (Benadryl) 50 mg PO X1 ONE Stop: 05/28/17 07:01 Enoxaparin Sodium (Lovenox) 100 mg 1 mg/kg (100 mg) SC Q12@0600,1800 [facility] Furosemide (Lasix) 40 mg IV BID@1000,1800 [facility] Last Admin: 05/27/17 08:52 Dose: 40 mg Amiodarone HCl 360 mg/ (Dextrose) 200 mls @ 16.66 mls/hr CONT INF .Q12H1M [facility] PRN Reason: 0.5 MG/MIN Stop: 05/28/17 22:59 Sodium Chloride () 1,000 mls @ 15 mls/hr IV .Q48H [facility] PRN Reason: KVO Losartan Potassium (Cozaar) 50 mg PO DAILY [facility] Last Admin: 05/27/17 12:41 Dose: 50 mg Magnesium Hydroxide (Milk Of Magnesia) 30 ml PO DAILY PRN PRN Reason: Constipation Ondansetron HCl (Zofran) 4 mg IV Q8H PRN PRN PRN Reason: Nausea Oxycodone HCl (Oxyir) 5 mg PO Q4H PRN PRN PRN Reason: Moderate Pain (pain scale 4-5) Sodium Chloride () 5 - 30 ml IV UD PRN PRN Reason: SALINE FLUSH Last Admin: 05/27/17 08:52 Dose: 10 ml Assessment/Plan Active and Suspected Problems Dyspnea (Acute) Edema (Acute) Atrial fibrillation with RVR (Acute) CHF (congestive heart failure) (Acute) 1. Acute heart failure with reduced ejection fraction: Ejection fraction of 10-15% patient on carvedilol, lisinopril and IV Lasix. Cardiology following. Plan for left heart catheterization tomorrow. Patient has been started on Plavix 2. Atrial fibrillation with RVR Patient has a known history of atrial fibrillation on amiodarone drip Chads vas score is 3 Patient has been started on Lovenox Heart rate improved but still tachycardic. 3. Right upper quadrant abdominal pain Gallbladder wall thickening on the ultrasound but no clinical Clemons sign May be related with constipation 4. GI bleed Resolved Patient notes a history of internal hemorrhoids as well as diverticulosis. Patient had a colonoscopy 2 years ago that showed no masses at that time. Would just monitor for now but is my feeling that this is likely due to his internal hemorrhoids or diverticulosis. Patient is certainly at higher likelihood to bleed given the fact that he is on therapeutic Lovenox at this time. 5. Constipation We will add senna and Dulcolax 6. DVT prophylaxis: Patient is currently anticoagulated. Code Visit Inpatient E&M: 39052 [facility] L3
[2017-05-27] MEDS: Senna Tablet 2 TABLET PO (14:11)
[2017-05-27] MEDS: Bisacodyl 5 MG Tablet PO (14:11)
--- NOTE | 2017-05-27 17:03 | CHAPLAIN ---
Type of Pastoral Visit _x__ Initial Visit ___ Follow-up Visit ___ On-call Visit ___ General Patient Visit ___ Spiritual Assessment ___ Family Conference ___ Bereavement ___ Rapid Response ___ Code Blue ___ Other (describe below) Pastoral Care Referral From _x__ Patient ___ Family ___ Nurse ___ Physician ___ [employer] Carrier ___ Licensed Acupuncturist ___ Other (describe below) Sacrament/Intervention _x__ Active listening ___ Anointing ___ Baptist ___ Bereavement ___ Communion ___ Debbie exploration ___ _x__ Life review _x__ Prayer ___ Reconciliation ___ Sacrament of Sick _x__ Supportive presence ___ Wedding ___ Other (describe below) Pastoral Comments patient to have heart cath; pt is very talkative about life and about the of his two years ago; pt wants to be around for his 21 year old son;
[2017-05-27] MEDS: Enoxaparin 100 MG/ML Syringe SC (17:51)
--- NOTE | 2017-05-27 17:59 | US_ITS ---
STUDY: ABDOMINAL ULTRASOUND - RIGHT UPPER QUADRANT REASON FOR VISIT: Male, 66 years old. Right upper quadrant pain. TECHNIQUE: Ultrasound evaluation of the right upper quadrant was performed with real-time and static montiel-scale imaging. TECHNICAL QUALITY: Adequate. COMPARISON: None. FINDINGS: Small right pleural effusion. Liver: The liver is slightly enlarged and measures 18.9 cm. There is increased echogenicity consistent with fatty infiltration. The bile ducts are within normal limits. There is hepatic color flow. The direction of portal flow is hepatopetal. There is no demonstrated mass lesion. Gallbladder: Normal distended gallbladder. The gallbladder wall is thickened and measures 5.0 mm. There is a negative sonographic Clemons's sign. There is no pericholecystic fluid. There are no gallstones. Common Bile Duct (C.B.D.): The common bile duct measures 4.0 mm. Pancreas: There is nonvisualization of the pancreas due to overlying bowel gas. Right Kidney: Normal size of the right kidney. The right kidney measures 13.2 cm x 6.1 cm x 4.4 cm. Normal renal cortex. The right cortex measures 1.7 cm. There is a 4.1 cm x 4.5 cm x 4.1 cm cyst in the inferior pole. There is no right hydronephrosis. US/Abdomen Limited IMPRESSION: Mild hepatomegaly and fatty infiltration of the liver. Thickened gallbladder wall. Right renal cyst. Small right pleural effusion. Electronically Signed: Felix Jiménez MD at 8:57 EST Tel [phone], Service support ,
[2017-05-28] VITALS (24 sets, daily range): BP systolic 96–127; BP diastolic 73–99; PULSE 109–114; RESP 10–22; TEMP 36.4–36.7; O2SAT 95–100
[2017-05-28 05:42] LABS: Absolute Lymphocyte Count 2.18 X10^3/ul (0.83-4.51); Absolute Neutrophil Count 6.4 X10^3/uL (2.0-7.7); Basophil# 0.05 X10^3/uL; Basophil% 0.5 % (0-1); Eosinophil# 0.22 X10^3/uL; Eosinophils% 2.3 % (0-5); Hematocrit 41.3 % (40-54); Lymphocyte # 2.18 X10^3/ul (4.0); Lymphocyte % 22.9 % (19-41); Mean Corp Hgb Conc 31.5 g/gl (32-36); Mean Corpuscular Hgb 29.2 pg (27.0-32.0); Mean Corpuscular Volume 92.8 fL (80-94); Mean Platelet Vol. 10.8 fl (6.2-12.0); Monocyte% 7.3 % (0-10); Neutrophil # 6.38 X10^3/uL (2.7-7.7); Neutrophil % 66.9 % (47-70); Platelet Count 178 K/mm3 (150-450); RBC Distribution Width CV 14.1 % (11.6-14.6); RBC Distribution Width SD 47.4 fl (35.1-43.9); Red Blood Count 4.45 M/mm3 (4.6-6.2); White Blood Count 9.5 K/mm3 (4.4-11.0)
[2017-05-28 05:49] LABS: International Normalized Ratio 1.2; Prothrombin Time (Protime)PT. 14.3 SECONDS (11.7-14.9)
[2017-05-28 05:54] LABS: Anion Gap 11 (5-15); BUN 21 mg/dL (7-18); BUN/Creat Ratio 15.1 RATIO (10-20); Calcium,Total 8.6 mg/dL (8.5-10.1); Chloride 105 mmol/L (98-107); Creatinine, Serum 1.39 mg/dL (0.70-1.30); EST Glomerular Filtration Rate 54 mL/min (>60); Est Glom Filt Rate - Afr Amer 66 mL/min (>60); Estimated Creatinine Clearance 59.88 ml/min; Glucose 120 mg/dL (70-110); Potassium 3.9 mmol/L (3.5-5.1); Sodium Level 140 mmol/L (136-145)
--- NOTE | 2017-05-28 05:55 | EKG12_ITS ---
Test Reason : AM Blood Pressure : / mmHG Vent. Rate : 113 BPM Atrial Rate : 113 BPM P-R Int : 192 ms QRS Dur : 094 ms QT Int : 346 ms P-R-T Axes : 001 048 151 degrees QTc Int : [address] & T wave abnormality, consider inferolateral ischemia Abnormal ECG When compared with ECG of 27-MAY-2017 11:38, MANUAL COMPARISON REQUIRED, DATA IS UNCONFIRMED Confirmed by BRITTNI VENTURA, ELSIE ([id number]), editorial specialist BRENNA MIMS ([id number]) on 06/10/2017 8:52:52 AM Referred By: DAWN Confirmed By:ELSIE ELKINS MD
[2017-05-28] MEDS: Carvedilol 6.25 MG Tablet PO ×2 (05:56→21:23)
[2017-05-28] MEDS: Clopidogrel Bisulfate 75 MG Tablet PO (05:56)
[2017-05-28] MEDS: Losartan Potassium 50 MG Tablet PO (05:56)
[2017-05-28] MEDS: 0.9% Normal Saline 1,000 ML 15 ML IV (05:57)
[2017-05-28 06:21] LABS: POSITIVE COUNT NO; POSITIVE DIFFERENTIAL NO; POSITIVE MORPHOLOGY NO
[2017-05-28] MEDS: DiphenhydrAMINE 25 MG Capsule 50 MG PO (09:11)
--- NOTE | 2017-05-28 09:35 | NURSING ---
Called report to pie bakery laborer RN
--- NOTE | 2017-05-28 09:49 | CASEMGMT ---
This RN CM to bedside to complete CM assessment and pt is out of the dept for heart cath at this time. SStsharon MARKHAM CM
[2017-05-28 10:41] LABS: Base Excess -2 mmol/L (-2 to +2); Blood Gas Specimen Type ART; PO2 56 mmHG (75-100); SO2 90 % (95-99); Total Carbon Dioxide 23 mmol/L; pCO2 33.7 mmHg (35-45); pH 7.42 (7.35-7.45)
[2017-05-28 10:41] LABS: Blood Gas Specimen Type VEN; VBG BASE EXCESS 0 mmol/L (-1.0-3.5); VBG Bicarbonate 25 mmol/L (22-26); VBG Oxygen Content 26 mmol/L (23-33); VBG PO2 26 mmHg (25-40); VBG SO2 50 % (50-70); VBG pCO2 37.8 mmHg (41-51); VBG pH 7.42 (7.32-7.42)
[2017-05-28 10:41] LABS: Blood Gas Specimen Type VEN; VBG BASE EXCESS 2 mmol/L (-1.0-3.5); VBG Bicarbonate 26 mmol/L (22-26); VBG Oxygen Content 27 mmol/L (23-33); VBG PO2 23 mmHg (25-40); VBG SO2 45 % (50-70); VBG pH 7.46 (7.32-7.42)
--- NOTE | 2017-05-28 10:43 | CL.D_ITS ---
Patient Name: BEATRICE AGUILAR Study Date: 05/28/2017 Performing: José Miguel Francis MD Ht: 72.83 inches 185 cm : 1950 Wt: 222.67 lbs 101 kg Age: 66 Gender: male BSA: 2.25 PROCEDURE(S) PERFORMED [id number]/LHC/COR/LV CLINICAL PROFILE AND INDICATIONS INDICATIONS: Supraventricular Tachycardia, Congenital heart disease, Congestive Heart Failure, Ne w onset with suspected CAD, Shortness of Breath, Pulmonary Hypertension Stress/Imaging Stress/Image Study Performed: No Angina Classification Anginal Classification w/in 2 Weeks: CCS IV CAD Presentations: Unstable angina. Comorbidities/Risk Factors: Current/Recent Smoker (< 1year) Hypertension Dyslipidemia CONCLUSIONS Global LV systolic dysfunction- Severe LVEF: by LV gram 20 % Elevated Left Ventricular End Diastolic Pressure Single vessel CAD of the LCX Non obstructive coronary arteries The patient has pulmonary hypertension which is moderate. Dilated chamber: Left Ventricle RECOMMENDATIONS ASA Indefinitely Management as per referring Parking Lot Signaler LAYLA guided DCCV in 2 days, change to po amiodarone, stop plavix. Start eliquis in 05/30/17. Stress test after DCCV to evaluate LCX; if abnormal for inferior/lateral ischemia, will return for el ective PCI of LCX. Pt has h/o lower GI bleeding and will need anti-coagulation group home for aflutte r. Consider aflutter ablation to avoid need for group home anti-coagulation. D/w Dr Heredia. DESCRIPTION OF PROCEDURE The patient arrived to the procedure lab. The risks and benefits of the procedure as well as a full d escription of our services here and current unavailability of surgical backup were fully explained to the patient and/or their significant other prior to the catheterization. The Timeout was completed, verifying the correct patient and procedure. The patient's procedural site was prepped and draped in the usual fashion. Local anesthetic was given subcutaneously to right groin region with Lidocaine 2%. Using a modified Seldinger technique, arterial access was obtained via the right femoral artery, a 4 Fr sheath was inserted Venous access was obtained via the right femoral vein, a 7Fr sheath was insert ed. A 7Fr thermal dilution catheter was inserted and right heart pressures were recorded, it was then advanced to PA position for cardiac outputs. O2 saturations were then obtained. The Thermal dilution catheter was then removed. Left Ventriculography was performed in CROWELL projection using a 4 Fr. [place] catheter. Left Coronary Artery selective angiography was performed in multiple views using a 4 Fr. JL5 catheter. Right Coronary Artery selective angiography was then performed in multiple views using a 4 Fr. 3DRC catheter.The arterial sheath was pulled and manual compression applied until hemostasis is achieved.. The venous sheath was then pulled and manual compression applied until hemostasis achi eved CORONARY ANGIOGRAPHY DOMINANCE: Right Dominant LEFT HEART ASSESSMENT Left Ventricular Ejection Fraction: by LV Gram 20 % Global Hypokinesis - Severe Elevated Left Ventricular End Diastolic Pressure Depressed Left Ventricular systolic function RIGHT HEART ASSESSMENT Thermal CO: 3.48 Thermal CI: 1.55 Joanna CO: 3.94 Joanna CI: 1.75 PW: 24 PA: 3520 27 RV: 36/2 8 RA: 02/16 13 PVR: 69 Right Heart pressures - elevated LEFT MAIN: Angiographically normal LEFT ANTERIOR DECENDING ARTERY: Mild luminal irregularities less than 30% CIRCUMFLEX ARTERY: PROX CIRC: 60 % Stenosis RIGHT CORONARY ARTERY: Mild luminal irregularities less than 30% RT PDA: Proximal - Angiographically normal COMPLICATIONS No Complications PROCEDURE MEDICATIONS Versed 1 mg IV Baby Aspirin (81mg) 1 Tabs PO @ 05/28/2017 09:49:16 SUMMARY OF HEMODYNAMIC DATA Time AIR REST ECG 09:51:33 RA 02/16 (13) SV 10:08:11 RV 36/2, 8 10:08:33 PW (24) PV 10:09:47 PA (27) PA 10:10:30 LV 111/-2, 22 10:15:15 LV 110/-2, 21 10:15:21 LV 107/-1, 22 10:15:55 PW (23) 10:15:55 LV 106/-2, 21 10:16:28 RV 38/5, 14 10:16:28 LVp 99/0, 27 10:17:56 AOp 98/69 (79) 10:18:01 Type SV CO (l/m) CI (l/m/ HR Time AIR REST Thermal 30.80 3.48 1.55 113 09:51:33 Joanna 34.90 3.94 1.75 113 09:51:33 Label % O2 Pres/Loc Time AIR REST PA 47 PA 10:24:17 AO 90 PV 10:24:24 Signed By José Miguel Francis MD On 05/28/2017 10:43:00 José Miguel Francis MD
[2017-05-28] MEDS: Senna Tablet 2 TABLET PO (12:02)
[2017-05-28] MEDS: 0.9% NaCl Peripheral Flush Adult/Peds IV (12:02)
[2017-05-28] MEDS: Furosemide 40 MG/4 ML Vial IV ×2 (12:02→17:36)
[2017-05-28] MEDS: Bisacodyl 5 MG Tablet PO (12:03)
[2017-05-28] MEDS: Amiodarone 200 MG Tablet PO ×2 (14:29→21:24)
--- NOTE | 2017-05-28 14:52 | CASEMGMT ---
Face to Face with patient for initial transition planning/care coordination assessment. RN RONALDO introduced self and role at [facility], pt voices understanding and consents to assessment at this time. Pt lying in bed in no distress at this time. Pt A/O x4 at this time and answers all questions appropriately at this time. Care providers, pharmacy, and demographics verified. See attached link. Pt voices no further concerns/needs at this time. Advised pt to ask for CM if any further questions/concerns/needs arise, voices understanding. Referral to Asim QUESADA for AD info at this time. PLAN: Home [place] [facility]IGGINS
[2017-05-28] MEDS: Acetaminophen 325 MG Tablet PO (15:03)
--- NOTE | 2017-05-28 15:21 | NURSING ---
Bed rest complete, walked patient in hallway, dressing c/d/i, tolerated well
--- NOTE | 2017-05-28 15:26 | PN_ITS ---
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 Still has constipation for the past several days despite the stool softeners. Vitals/I&O's: Vital Signs Temp Pulse Resp BP Pulse Ox 36.6 C 112 H 16 107/73 97 05/28/17 15:00 05/28/17 15:00 05/28/17 15:00 05/28/17 15:00 05/28/17 15:00 Oxygen Flow Rate 2 Oxygen Delivery Method Room Air Weight: 100.3 kg Body Mass Index (BMI) 29.7 Intake and Output for Last 24 Hours 05/26/17 05/27/17 05/28/17 23:59 23:59 23:59 Intake Total 33.9 / 33.9 2390.7 / 2390.7 444.1 / 444.1 Output Total 3975 / 3975 475 / 475 Balance 33.9 / 33.9 -1584.3 / -1584.3 -30.9 / -30.9 General: Alert, Cooperative, No apparent distress HEENT: Atraumatic, Normocephalic Neck: No Nodes, Thyroid Normal Size and Texture Lungs: Clear to auscultation, Normal air movement, No rhonchi, No wheeze Cardiovascular: Irregular Rate, Tachycardic Abdomen: Bowel Sounds Present, Soft, Non Tender, Non-Distended, No Hepato- splenomegaly Extremities: No Calf Tenderness, Edema Skin: No rashes, No breakdown Psych/Mental Status: Normal Affect, Appropriate Laboratory Results 05/28/17 05:05: Sodium 140, Potassium 3.9, Chloride 105, Carbon Dioxide 24.0, Anion Gap 11, BUN 21 H, Creatinine 1.39 H, Estim Creat Clear Calc 59.88, Est GFR (MDRD) Af Amer 66, Est GFR (MDRD) Non-Af 54 L, BUN/Creatinine Ratio 15.1, Glucose 120 H, Calcium 8.6 05/28/17 05:05: WBC 9.5, RBC 4.45 L, Hgb 13.0, Hct 41.3, MCV 92.8, MCH 29.2, MCHC 31.5 L, RDW 14.1, RDW Differential 47.4 H, Plt Count 178, MPV 10.8, Immature Gran % (Auto) 0.100, Neut % (Auto) 66.9, Lymph % (Auto) 22.9, [place] % ( Auto) 7.3, Eos % (Auto) 2.3, Baso % (Auto) 0.5, Absolute Neuts (auto) 6.4, Absolute Lymphs (auto) 2.18, Total Counted Not Reportable 05/28/17 05:05: PT 14.3, INR 1.2, APTT 36.0 05/28/17 10:14: Specimen Type MONIQUE, VBG pH 7.46 H, VBG pO2 23 L, VBG O2 Sat (Calc ) 45 L, VBG O2 Content 27, VBG Base Excess 2, POC Mix VBG pCO2 Pt Tmp 37.0 L 05/28/17 10:18: Specimen Type MONIQUE, VBG pH 7.42, VBG pO2 26, VBG O2 Sat (Calc) 50 , VBG O2 Content 26, VBG Base Excess 0, POC Mix VBG pCO2 Pt Tmp 37.8 L 05/28/17 10:22: Specimen Type ART, pH 7.42, Bicarbonate Actual 22.0, POC Total CO2 23, Base Excess -2, O2 Saturation 90 L, ABG pCO2 33.7 L, ABG pO2 56 L Current Medications Acetaminophen (Tylenol) 325 - 650 mg PO Q6H PRN PRN PRN Reason: Pain Last Admin: 05/28/17 15:03 Dose: 650 mg Amiodarone HCl (Cordarone) 200 mg PO BID [facility] Last Admin: 05/28/17 14:29 Dose: 200 mg Apixaban (Eliquis) 2.5 mg PO BID [facility] Bisacodyl (Dulcolax) 5 mg PO DAILY [facility] Last Admin: 05/28/17 12:03 Dose: 5 mg Carvedilol (Coreg) 6.25 mg PO BID [facility] Last Admin: 05/28/17 05:56 Dose: 6.25 mg Furosemide (Lasix) 40 mg IV BID@1000,1800 [facility] Last Admin: 05/28/17 12:02 Dose: 40 mg Sodium Chloride () 1,000 mls @ 15 mls/hr IV .Q48H [facility] PRN Reason: KVO Last Admin: 05/28/17 05:57 Dose: 15 mls/hr Losartan Potassium (Cozaar) 50 mg PO DAILY [facility] Last Admin: 05/28/17 05:56 Dose: 50 mg Magnesium Hydroxide (Milk Of Magnesia) 30 ml PO DAILY PRN PRN Reason: Constipation Ondansetron HCl (Zofran) 4 mg IV Q8H PRN PRN PRN Reason: Nausea Oxycodone HCl (Oxyir) 5 mg PO Q4H PRN PRN PRN Reason: Moderate Pain (pain scale 4-5) Senna (Senokot) 2 tablet PO DAILY [facility] Last Admin: 05/28/17 12:02 Dose: 2 tablet Sodium Chloride () 5 - 30 ml IV UD PRN PRN Reason: SALINE FLUSH Last Admin: 05/28/17 12:02 Dose: 10 ml Assessment/Plan Active and Suspected Problems Dyspnea (Acute) Edema (Acute) Atrial fibrillation with RVR (Acute) CHF (congestive heart failure) (Acute) 1. Acute heart failure with reduced ejection fraction: Ejection fraction of 10-15% patient on carvedilol, losartan and IV Lasix. Cardiology following. Left heart catheterization showed minimal coronary artery disease. 2. Atrial fibrillation with RVR Patient has a known history of atrial fibrillation on amiodarone drip Chads vas score is 3 Patient has been started on Lovenox Heart rate improved but still tachycardic. Plan is for cardioversion on the . 3. Right upper quadrant abdominal pain Gallbladder wall thickening on the ultrasound but no clinical Clemons sign May be related with constipation 4. GI bleed Resolved Patient notes a history of internal hemorrhoids as well as diverticulosis. Patient had a colonoscopy 2 years ago that showed no masses at that time. Would just monitor for now but is my feeling that this is likely due to his internal hemorrhoids or diverticulosis. Patient is certainly at higher likelihood to bleed given the fact that he is on therapeutic Lovenox at this time. 5. Constipation We will add senna and Dulcolax We will add one-time dose of magnesium citrate. 6. DVT prophylaxis: Patient is currently anticoagulated. Code Visit Inpatient E&M: 33407 [facility] L2
--- NOTE | 2017-05-28 15:40 | CASEMGMT ---
SW completed advance directives with patient. He was aware of documents and their purpose. Copies were made, one placed in his chart and the others given to patient. Margaret MONTES DE OCA MSW
[2017-05-29] VITALS (11 sets, daily range): BP systolic 115–124; BP diastolic 71–81; PULSE 110–115; RESP 16–18; TEMP 36.7; O2SAT 98–100
[2017-05-29 07:14] LABS: Anion Gap 9 (5-15); BUN 23 mg/dL (7-18); BUN/Creat Ratio 16.2 RATIO (10-20); Calcium,Total 8.7 mg/dL (8.5-10.1); Chloride 104 mmol/L (98-107); Creatinine, Serum 1.42 mg/dL (0.70-1.30); EST Glomerular Filtration Rate 53 mL/min (>60); Est Glom Filt Rate - Afr Amer 64 mL/min (>60); Estimated Creatinine Clearance 58.61 ml/min; Glucose 131 mg/dL (70-110); Potassium 3.9 mmol/L (3.5-5.1); Sodium Level 139 mmol/L (136-145)
[2017-05-29] MEDS: Carvedilol 12.5 MG Tablet PO ×2 (10:11→21:13)
[2017-05-29] MEDS: Amiodarone 200 MG Tablet PO ×2 (10:12→21:13)
[2017-05-29] MEDS: Losartan Potassium 50 MG Tablet PO (10:12)
[2017-05-29] MEDS: Furosemide 40 MG/4 ML Vial IV (10:12)
[2017-05-29] MEDS: 0.9% NaCl Peripheral Flush Adult/Peds IV (10:12)
[2017-05-29] MEDS: Senna Tablet 2 TABLET PO (10:13)
[2017-05-29] MEDS: Bisacodyl 5 MG Tablet PO (10:13)
--- NOTE | 2017-05-29 14:36 | PCM.PN.HOSP ---
Patient Problems: Active and Suspected Problems Dyspnea (Acute) Edema (Acute) Atrial fibrillation with RVR (Acute) CHF (congestive heart failure) (Acute) Subjective: Feeling well. Vitals/I&O's: Vital Signs Temp Pulse Resp BP Pulse Ox 36.7 C 115 H 16 124/71 H 100 05/29/17 10:00 05/29/17 11:03 05/29/17 10:00 05/29/17 10:00 05/29/17 10:00 Oxygen Flow Rate 2 Oxygen Delivery Method Room Air Weight: 99.7 kg Body Mass Index (BMI) 29.7 Intake and Output for Last 24 Hours 05/27/17 05/28/17 05/29/17 23:59 23:59 23:59 Intake Total 2390.7 / 2390.7 1014.9 / 1014.9 1300 / 1300 Output Total 3975 / 3975 2325 / 2325 1025 / 1025 Balance -1584.3 / -1584.3 -1310.1 / -1310.1 275 / 275 General: Alert, Cooperative, No apparent distress HEENT: Atraumatic, Normocephalic Oral: Moist Mucosa Neck: No Nodes, Thyroid Normal Size and Texture Lungs: Clear to auscultation, Normal air movement, No rhonchi, No wheeze Cardiovascular: Irregular Rate, Tachycardic Abdomen: Bowel Sounds Present, Soft, Non Tender, Non-Distended, No Hepato-splenomegaly Laboratory Results 05/29/17 06:20: Sodium 139, Potassium 3.9, Chloride 104, Carbon Dioxide 26.0, Anion Gap 9, BUN 23 H, Creatinine 1.42 H, Estim Creat Clear Calc 58.61, Est GFR (MDRD) Af Amer 64, Est GFR (MDRD) Non-Af 53 L, BUN/Creatinine Ratio 16.2, Glucose 131 H, Calcium 8.7 Current Medications Acetaminophen (Tylenol) 325 - 650 mg PO Q6H PRN PRN PRN Reason: Pain Last Admin: 05/28/17 15:03 Dose: 650 mg Amiodarone HCl (Cordarone) 200 mg PO BID [facility] Last Admin: 05/29/17 10:12 Dose: 200 mg Apixaban (Eliquis) 2.5 mg PO BID [facility] Bisacodyl (Dulcolax) 5 mg PO DAILY [facility] Last Admin: 05/29/17 10:13 Dose: 5 mg Carvedilol (Coreg) 12.5 mg PO BID [facility] Last Admin: 05/29/17 10:11 Dose: 12.5 mg Furosemide (Lasix) 40 mg PO BID@1000,1800 [facility] Sodium Chloride () 1,000 mls @ 15 mls/hr IV .Q48H [facility] PRN Reason: KVO Last Admin: 05/28/17 05:57 Dose: 15 mls/hr Sodium Chloride () 500 mls @ 15 mls/hr IV .[id number] [facility] PRN Reason: KVO Losartan Potassium (Cozaar) 50 mg PO DAILY [facility] Last Admin: 05/29/17 10:12 Dose: 50 mg Magnesium Hydroxide (Milk Of Magnesia) 30 ml PO DAILY PRN PRN Reason: Constipation Ondansetron HCl (Zofran) 4 mg IV Q8H PRN PRN PRN Reason: Nausea Oxycodone HCl (Oxyir) 5 mg PO Q4H PRN PRN PRN Reason: Moderate Pain (pain scale 4-5) Senna (Senokot) 2 tablet PO DAILY [facility] Last Admin: 05/29/17 10:13 Dose: 2 tablet Sodium Chloride () 5 - 30 ml IV UD PRN PRN Reason: SALINE FLUSH Last Admin: 05/29/17 10:12 Dose: 10 ml Assessment/Plan Active and Suspected Problems Dyspnea (Acute) Edema (Acute) Atrial fibrillation with RVR (Acute) CHF (congestive heart failure) (Acute) 1. Acute heart failure with reduced ejection fraction: Ejection fraction of 10-15% patient on carvedilol, losartan and IV Lasix. Cardiology following. Left heart catheterization showed minimal coronary artery disease. 2. Atrial fibrillation with RVR Patient has a known history of atrial fibrillation on amiodarone drip Chads vas score is 3 Patient has been started on Lovenox Heart rate improved but still tachycardic. Plan is for cardioversion on the . 3. Right upper quadrant abdominal pain Gallbladder wall thickening on the ultrasound but no clinical Clemons sign May be related with constipation 4. GI bleed Resolved Patient notes a history of internal hemorrhoids as well as diverticulosis. Patient had a colonoscopy 2 years ago that showed no masses at that time. Would just monitor for now but is my feeling that this is likely due to his internal hemorrhoids or diverticulosis. Patient is certainly at higher likelihood to bleed given the fact that he is on therapeutic Lovenox at this time. 5. Constipation resolved 6. DVT prophylaxis: Patient is currently anticoagulated. Code Visit Inpatient E&M: 98431 Subs Hosp L2
--- NOTE | 2017-05-29 14:42 | PN_ITS ---
Patient Problems: Active and Suspected Problems Dyspnea (Acute) Edema (Acute) Atrial fibrillation with RVR (Acute) CHF (congestive heart failure) (Acute) Subjective: Feeling well. Vitals/I&O's: Vital Signs Temp Pulse Resp BP Pulse Ox 36.7 C 115 H 16 124/71 H 100 05/29/17 10:00 05/29/17 11:03 05/29/17 10:00 05/29/17 10:00 05/29/17 10:00 Oxygen Flow Rate 2 Oxygen Delivery Method Room Air Weight: 99.7 kg Body Mass Index (BMI) 29.7 Intake and Output for Last 24 Hours 05/27/17 05/28/17 05/29/17 23:59 23:59 23:59 Intake Total 2390.7 / 2390.7 1014.9 / 1014.9 1300 / 1300 Output Total 3975 / 3975 2325 / 2325 1025 / 1025 Balance -1584.3 / -1584.3 -1310.1 / -1310.1 275 / 275 General: Alert, Cooperative, No apparent distress HEENT: Atraumatic, Normocephalic Oral: Moist Mucosa Neck: No Nodes, Thyroid Normal Size and Texture Lungs: Clear to auscultation, Normal air movement, No rhonchi, No wheeze Cardiovascular: Irregular Rate, Tachycardic Abdomen: Bowel Sounds Present, Soft, Non Tender, Non-Distended, No Hepato- splenomegaly Laboratory Results 05/29/17 06:20: Sodium 139, Potassium 3.9, Chloride 104, Carbon Dioxide 26.0, Anion Gap 9, BUN 23 H, Creatinine 1.42 H, Estim Creat Clear Calc 58.61, Est GFR (MDRD) Af Amer 64, Est GFR (MDRD) Non-Af 53 L, BUN/Creatinine Ratio 16.2, Glucose 131 H, Calcium 8.7 Current Medications Acetaminophen (Tylenol) 325 - 650 mg PO Q6H PRN PRN PRN Reason: Pain Last Admin: 05/28/17 15:03 Dose: 650 mg Amiodarone HCl (Cordarone) 200 mg PO BID [facility] Last Admin: 05/29/17 10:12 Dose: 200 mg Apixaban (Eliquis) 2.5 mg PO BID [facility] Bisacodyl (Dulcolax) 5 mg PO DAILY [facility] Last Admin: 05/29/17 10:13 Dose: 5 mg Carvedilol (Coreg) 12.5 mg PO BID [facility] Last Admin: 05/29/17 10:11 Dose: 12.5 mg Furosemide (Lasix) 40 mg PO BID@1000,1800 NICK Sodium Chloride () 1,000 mls @ 15 mls/hr IV .Q48H NICK PRN Reason: KVO Last Admin: 05/28/17 05:57 Dose: 15 mls/hr Sodium Chloride () 500 mls @ 15 mls/hr IV .[id number] [facility] PRN Reason: KVO Losartan Potassium (Cozaar) 50 mg PO DAILY [facility] Last Admin: 05/29/17 10:12 Dose: 50 mg Magnesium Hydroxide (Milk Of Magnesia) 30 ml PO DAILY PRN PRN Reason: Constipation Ondansetron HCl (Zofran) 4 mg IV Q8H PRN PRN PRN Reason: Nausea Oxycodone HCl (Oxyir) 5 mg PO Q4H PRN PRN PRN Reason: Moderate Pain (pain scale 4-5) Senna (Senokot) 2 tablet PO DAILY [facility] Last Admin: 05/29/17 10:13 Dose: 2 tablet Sodium Chloride () 5 - 30 ml IV UD PRN PRN Reason: SALINE FLUSH Last Admin: 05/29/17 10:12 Dose: 10 ml Assessment/Plan Active and Suspected Problems Dyspnea (Acute) Edema (Acute) Atrial fibrillation with RVR (Acute) CHF (congestive heart failure) (Acute) 1. Acute heart failure with reduced ejection fraction: Ejection fraction of 10-15% patient on carvedilol, losartan and IV Lasix. Cardiology following. Left heart catheterization showed minimal coronary artery disease. 2. Atrial fibrillation with RVR Patient has a known history of atrial fibrillation on amiodarone drip Chads vas score is 3 Patient has been started on Lovenox Heart rate improved but still tachycardic. Plan is for cardioversion on the . 3. Right upper quadrant abdominal pain Gallbladder wall thickening on the ultrasound but no clinical Clemons sign May be related with constipation 4. GI bleed Resolved Patient notes a history of internal hemorrhoids as well as diverticulosis. Patient had a colonoscopy 2 years ago that showed no masses at that time. Would just monitor for now but is my feeling that this is likely due to his internal hemorrhoids or diverticulosis. Patient is certainly at higher likelihood to bleed given the fact that he is on therapeutic Lovenox at this time. 5. Constipation resolved 6. DVT prophylaxis: Patient is currently anticoagulated. Code Visit Inpatient E&M: 37425 Subs Hosp L2
--- NOTE | 2017-05-29 15:02 | PN.CARD_ITS ---
Subjectve: Patient feeling much better. Right groin is clean/dry/intact. Patient still in atrial flutter with heart rates in the 1 teens. Objective: Vital Signs Temp Pulse Resp BP Pulse Ox 98.1 F 115 H 16 124/71 H 100 05/29/17 10:00 05/29/17 11:03 05/29/17 10:00 05/29/17 10:00 05/29/17 10:00 Oxygen Flow Rate 2 Oxygen Delivery Method Room Air Weight: 219 lb 12.814 oz Body Mass Index (BMI) 29.7 Intake and Output for Last 24 Hours 05/27/17 05/28/17 05/29/17 23:59 23:59 23:59 Intake Total 2390.7 / 2390.7 1014.9 / 1014.9 1300 / 1300 Output Total 3975 / 3975 2325 / 2325 1025 / 1025 Balance -1584.3 / -1584.3 -1310.1 / -1310.1 275 / 275 General: Awake, Alert, Oriented x 3 HEENT: PERRL, EOMI, Sclera Non Icteric Neck: Supple, Good ROM, No Lymph Node Enlargement Lungs: Clear to auscultation Cardiovascular: Regular Rhythm, Normal S1, Normal S2, No Murmurs, No Rubs, No Gallops Vascular: No Carotid Bruits, Normal Femoral Pulses, Normal Radial Pulses, Normal Dorsalis Pedal Pulse, Normal Posterior Tibial Pulses Abdomen: Bowel Sounds Present, Soft, Non Tender, No HSM, No Organomegaly Extremities: No Cyanosis, No Clubbing, No edema Neurological: No Focal Motor or Sensory Deficit 05/29/17 06:20: Sodium 139, Potassium 3.9, Chloride 104, Carbon Dioxide 26.0, Anion Gap 9, BUN 23 H, Creatinine 1.42 H, Est GFR (MDRD) Af Amer 64, Est GFR ( MDRD) Non-Af 53 L, BUN/Creatinine Ratio 16.2, Glucose 131 H, Calcium 8.7 Rhythm: EKG: ECHO: Stress Test: Cardiac Cath: PCI: CT Surgery: Holter monitor: EPS: PPM: CXR: Chest CT Scan: Assessment/Plan 1. Atrial flutter: Patient appears to be in atrial flutter with 2-1 conduction and a heart rate of around 125 bpm, now better controlled in the 1 teens but still tachycardic. Patient had received 2 doses of IV Cardizem emergency room without much effect. Apparently the patient has a known history of atrial fibrillation in the past, however he has not been on anticoagulation and is no longer on sotalol or beta-foreign therapy. Patient has done quite well diuresing, and recommend switching him from IV Lasix to Lasix 40 mg p.o. twice daily. His left heart catheterization yesterday demonstrated no significant coronary disease. Patient was transitioned from IV amiodarone to p.o. amiodarone yesterday. Recommend increasing his Coreg to 12.5 mg p.o. twice daily up to a maximum of 25 mg p.o. twice daily for heart rate control. 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 His symptoms appear to occur after a viral illness in March 2016. Patient will undergo a LAYLA guided DC cardioversion tomorrow assuming there are no thrombi found in his left atrium or left atrial appendage. We will start him on Eliquis 2.5 mg p.o. twice daily with respect to his chronic renal insufficiency. If the patient's atrial flutter is unable to be controlled with an a hypertensive and antiarrhythmic therapy, the patient may require a LAYLA guided DC cardioversion. In addition he may require EP evaluation as he has a history of bright red blood per rectum, diverticulosis and hemorrhoids and is not a good long-term anticoagulation therapy patient. 2. Biventricular failure: Patient has evidence of biventricular failure given his orthopnea, PND, shortness of breath and lower extremity edema. Patient may have had a cardiomyopathy as a result of his flulike illness and March 2016. Echocardiogram suggested an EF around 15%, however LV angiogram yesterday demonstrated to be around 30-35%. Again we will transition him off of IV Lasix and put him on Lasix 40 mill grams p.o. twice daily. Recommend low-sodium, 1500 cc fluid restriction diet going forward. Ultrasound of his right lower extremity is negative for thrombus. Recommend discontinuation of lisinopril and starting him on Cozaar 50 mg p.o. daily and titrating up from there for his LV dysfunction. Patient no longer drinks, and no longer smokes. His cardiomyopathy may be a result of a combination of atrial arrhythmia and viral cardiomyopathy, possibly superimposed on previous heavy alcohol use. 3. Thank you very much for the opportunity to precipitate the cardiac care of your patient. Code Visit Inpatient E&M: 84391 Subs Hosp L2
[2017-05-29] MEDS: Furosemide 40 MG Tablet PO (16:59)
[2017-05-29] MEDS: APIXABAN 2.5 MG TABLET PO (21:13)
[2017-05-30] VITALS (12 sets, daily range): BP systolic 86–112; BP diastolic 58–75; PULSE 62–112; RESP 14–18; TEMP 36.5–36.8; O2SAT 94–98
[2017-05-30] MEDS: 0.9% NaCl Peripheral Flush Adult/Peds IV (06:14)
[2017-05-30] MEDS: 0.9% Normal Saline 1,000 ML 15 ML IV (06:37)
[2017-05-30] MEDS: Losartan Potassium 50 MG Tablet PO (10:00)
[2017-05-30] MEDS: Amiodarone 200 MG Tablet PO (10:00)
[2017-05-30] MEDS: Carvedilol 12.5 MG Tablet PO (10:00)
[2017-05-30] MEDS: APIXABAN 2.5 MG TABLET PO (10:00)
--- NOTE | 2017-05-30 10:00 | ECHOTEE_ITS ---
Reason For Study: Afib-Flutter Medication LAYLA probe passed with minimal difficulty. [id number] gargled and swallowed. Cetacaine Topical [place] given X2 orally. Versed 2 mg given slow IVP. Fentanyl 25 mcg given slow IVP. Performed a rapid injection of agitated mix of 9 cc saline and 1cc air to assess for atrial septal defect. Left Ventricle Severely dilated left ventricle. The estimated ejection fraction is 15 %. There is severe global hypokinesis of the left ventricle. Right Ventricle Moderately dilated right ventricle. Moderate global right ventricular systolic dysfunction. Atria Normal atrial septum. Bubble contrast study negative for right to left interatrial shunt. The left atrium is severely enlarged. No thrombus is detected in the left atrial appendage. There is moderate sponatenous contrast in the left atrium. The right atrium is severely enlarged. Mitral Valve The mitral valve is structurally normal. No prolapse or stenosis seen. Trivial mitral valve insufficiency. Tricuspid Valve Normal tricuspid valve. Mild (1+) tricuspid valve insufficiency. Right ventricular systolic pressure estimated to be 24 mmHg. Aortic Valve Normal aortic valve. Trisinus/trileaflet aortic valve. Pulmonic Valve Normal pulmonic valve. Trivial pulmonic valve insufficiency. Vessels Normal aortic root. Normal arch. Pulmonary venous flow attenuated diastolic component. Interpretation Summary Severely dilated left ventricle. The estimated ejection fraction is 15 %. There is severe global hypokinesis of the left ventricle. Moderate global right ventricular systolic dysfunction. Bubble contrast study negative for right to left interatrial shunt. The left atrium is severely enlarged. No thrombus is detected in the left atrial appendage. The right atrium is severely enlarged. Mild (1+) tricuspid valve insufficiency. Right ventricular systolic pressure estimated to be 24 mmHg. Ordering Physician: José Miguel Francis Referring Physician: Young Emerson Performed By: Hal Garcia RCS
--- NOTE | 2017-05-30 11:59 | PN_ITS ---
Progress Note DC cardioversion note: Was brought to the cardiovascular suite in the fasting state, informed consent was obtained prior to his transesophageal echocardiogram for both the transesophageal echocardiogram as well as subsequent DC cardioversion. The risks/benefits of the procedure were thoroughly explained to the patient and informed consent was obtained. LAYLA was performed without complications which demonstrated no evidence of left atrial appendage thrombus, however the patient did have severe left atrial enlargement with spontaneous echo contrast noted. His initial presenting rhythm was atrial flutter as it has been since he was admitted. The defibrillator pads were placed in the AP position. With the assistance of Dr. Low Winkler, the patient was sedated with a dose of etomidate, and once adequate sedation was obtained patient received a single 200 J synchronized biphasic shock which converted him from atrial flutter to normal sinus rhythm. His rhythm remained durable, and EKG confirmed normal sinus rhythm. Patient spontaneously awoke, moves all 4 extremities and tolerated procedure well. Conclusions #1 successful Eliquis assisted DC cardioversion receiving a single biphasic 200 total shock converting him from atrial flutter to normal sinus rhythm. Patient taught procedure well. Recommendations: At this point the patient will continue amiodarone 200 mg a day , Coreg, Conoemi, Lasix. He will be transferred back up to the floor for discharge later today or 2 tomorrow. He will follow-up with me going forward. We will make arrangements for cardiac rehab in a couple weeks time. Once he is completed cardiac rehab we will repeat echocardiogram to determine if the patient requires AICD placement for primary prophylaxis. Many thanks to Dr. Low Winkler for his anesthesia assistance.
--- NOTE | 2017-05-30 12:54 | PCM.OP.BLANK ---
Problem List (1) Atrial flutter by electrocardiogram Status: Chronic (2) CHF (congestive heart failure) Status: Acute Qualifiers: Congestive heart failure type: combined Congestive heart failure chronicity: acute on chronic Qualified Code(s): I50.43 - Acute on chronic combined systolic (congestive) and diastolic (congestive) heart failure Operative Report Date of Procedure: 05/30/17 - Conscious sedation CONSCIOUS SEDATION REPORT BRIEF HISTORY OF PRESENT ILLNESS: The patient is a 66-year-old [male] who presented to [facility] emergency department with heart palpitations and was subsequently found to be in atrial fibrillation with a rapid ventricular rate on 05/26/2017. Patient was seen by cardiology and did have a heart catheterization last week. Patient has been volume optimized and today received a LAYLA. Patient received 2 mg of Versed and 25 mcg of fentanyl for that procedure. Patient is known to have severely depressed ejection fraction of 10-30%. Patient has been placed on IV and p.o. amiodarone, Coreg and has received diuresis. Patient does have a history of smoking, but is never had pulmonary function testing. Patient states he has had a polysomnogram in the past that was not consistent with sleep apnea. Patient is n.p.o. and is an inpatient at this time. PHYSICAL EXAMINATION: VITAL SIGNS: Reviewed and were acceptable. GENERAL: The patient is an obese male, in no apparent distress, speaking in full sentences. HEENT: Normocephalic, atraumatic. Mucous membranes are moist and pink. Good mouth opening noted. Trachea is midline. Good neck mobility. CHEST: S1, S2 irregularly irregular. No murmurs, rubs or gallops were noted. LUNGS: Diminished. Clear to auscultation bilaterally without appreciable wheezes, rales or rhonchi. ABDOMEN: Soft, nontender, nondistended. Positive bowel sounds. Obese. EXTREMITIES: There is mild clubbing, but no cyanosis. Lower extremity edema present ASA Class: III DESCRIPTION OF PROCEDURE: After confirmation of informed consent, the patient's anesthesia plan was reviewed in detail. Etomidate was chosen. Risks and benefits were reviewed and the patient agreed to proceed. At 11:35 AM, the patient was given 4 mg of etomidate. The patient achieved an appropriate level of sedation and was given a 200 joule synchronized cardioversion by Dr. Francis at the bedside. This was successful in achieving normal sinus rhythm. The patient was monitored until 11:44 AM, at which time he reached his baseline mental status and function. The patient tolerated the procedure well. COMPLICATIONS: None ESTIMATED BLOOD LOSS: None RECOMMENDATIONS: Okay to recover in usual fashion. Code Visit [id number]: Other Procedure See Report - [id number]
--- NOTE | 2017-05-30 13:02 | OP.PCM_ITS ---
Problem List (1) Atrial flutter by electrocardiogram Status: Chronic (2) CHF (congestive heart failure) Status: Acute Qualifiers: Congestive heart failure type: combined Congestive heart failure chronicity : acute on chronic Qualified Code(s): I50.43 - Acute on chronic combined systolic (congestive) and diastolic (congestive) heart failure Operative Report Date of Procedure: 05/30/17 - Conscious sedation CONSCIOUS SEDATION REPORT BRIEF HISTORY OF PRESENT ILLNESS: The patient is a 66-year-old [male] who presented to [facility] emergency department with heart palpitations and was subsequently found to be in atrial fibrillation with a rapid ventricular rate on 05/26/2017. Patient was seen by cardiology and did have a heart catheterization last week. Patient has been volume optimized and today received a LAYLA. Patient received 2 mg of Versed and 25 mcg of fentanyl for that procedure. Patient is known to have severely depressed ejection fraction of 10-30%. Patient has been placed on IV and p.o. amiodarone, Coreg and has received diuresis. Patient does have a history of smoking, but is never had pulmonary function testing. Patient states he has had a polysomnogram in the past that was not consistent with sleep apnea. Patient is n.p.o. and is an inpatient at this time. PHYSICAL EXAMINATION: VITAL SIGNS: Reviewed and were acceptable. GENERAL: The patient is an obese male, in no apparent distress, speaking in full sentences. HEENT: Normocephalic, atraumatic. Mucous membranes are moist and pink. Good mouth opening noted. Trachea is midline. Good neck mobility. CHEST: S1, S2 irregularly irregular. No murmurs, rubs or gallops were noted. LUNGS: Diminished. Clear to auscultation bilaterally without appreciable wheezes , rales or rhonchi. ABDOMEN: Soft, nontender, nondistended. Positive bowel sounds. Obese. EXTREMITIES: There is mild clubbing, but no cyanosis. Lower extremity edema present ASA Class: III DESCRIPTION OF PROCEDURE: After confirmation of informed consent, the patient's anesthesia plan was reviewed in detail. Etomidate was chosen. Risks and benefits were reviewed and the patient agreed to proceed. At 11:35 AM, the patient was given 4 mg of etomidate. The patient achieved an appropriate level of sedation and was given a 200 joule synchronized cardioversion by Dr. Francis at the bedside. This was successful in achieving normal sinus rhythm. The patient was monitored until 11 :44 AM, at which time he reached his baseline mental status and function. The patient tolerated the procedure well. COMPLICATIONS: None ESTIMATED BLOOD LOSS: None RECOMMENDATIONS: Okay to recover in usual fashion. Code Visit [id number]: Other Procedure See Report - [id number]
[2017-05-30] MEDS: Senna Tablet 2 TABLET PO (15:18)
[2017-05-30] MEDS: Bisacodyl 5 MG Tablet PO (15:18)
[2017-05-30] MEDS: Furosemide 40 MG Tablet PO (15:18)
--- NOTE | 2017-05-30 15:23 | PCM.DC ---
- Discharge Diagnoses Current Active Problems: Current Active and Chronic Problems Atrial flutter by electrocardiogram (Chronic) Dyspnea (Acute) Edema (Acute) Atrial fibrillation with RVR (Acute) CHF (congestive heart failure) (Acute) Diverticulosis (Chronic) Internal hemorrhoid (Chronic) GI bleed (Chronic) You will use the following diet at home:: Cardiac, Fluid restricted (specify 2000 mls, 1500 mls) - 2000 cc/day Your food should be the consistency of: Regular Your liquids should be the consistency of: Regular/Thin Call your doctor if you observe: Fever of 101 or Higher, Shortness of breath Instructions: Heart Failure: Making Changes to Your Diet, Heart Failure: Tracking Your Weight, What Is Atrial Flutter/Atrial Fibrillation?, What Is Heart Failure?, Taking Medication to Control Heart Failure, Heart Failure: Evaluating Your Heart, Heart Failure: Medications to Help Your Heart, Discharge Instructions for Atrial Fibrillation, Discharge Instructions for Heart Failure Allergies/Adverse Reactions: Allergies No Known Allergies Allergy (Verified 05/26/17 13:08) Medications to take at Discharge Amiodarone HCl [Cordarone] 200 mg PO DAILY #30 tab 05/30/17 Apixaban [Eliquis] 2.5 mg PO BID #60 tab 05/30/17 Bisacodyl [Dulcolax] 5 mg PO DAILY PRN #1 tablet 05/30/17 Carvedilol [Coreg (Beta James)] 12.5 mg PO BID #60 tab 05/30/17 Furosemide [Lasix] 40 mg PO BID@1000,1800 #60 tab 05/30/17 Losartan Potassium [Cozaar] 50 mg PO DAILY #30 tab 05/30/17 Potassium Chloride [K-Dur] 20 meq PO DAILY #30 tab 05/30/17 Senna [Senokot] 2 tab PO DAILY #30 tab 05/30/17 The following prescriptions were given: Amiodarone HCl [Cordarone] 200 mg PO DAILY #30 tab Bisacodyl [Dulcolax] 5 mg PO DAILY PRN #1 tablet PRN Reason: Constipation Furosemide [Lasix] 40 mg PO BID@1000,1800 #60 tab Losartan Potassium [Cozaar] 50 mg PO DAILY #30 tab Potassium Chloride [K-Dur] 20 meq PO DAILY #30 tab Senna [Senokot] 2 tab PO DAILY #30 tab Apixaban [Eliquis] 2.5 mg PO BID #60 tab Carvedilol [Coreg (Beta James)] 12.5 mg PO BID #60 tab Primary Care Physician: Young Emerson MD [Primary Care Provider] - In 1 Week Please Follow Up With: José Miguel Francis MD When: 2-4 weeks Proposed Discharge Date: 05/30/17
--- NOTE | 2017-05-30 15:26 | PCM.DC.SUM ---
Discharge Date and Diagnosis - Problem List Patient Problems: Active and Suspected Problems Dyspnea (Acute) Edema (Acute) Atrial fibrillation with RVR (Acute) CHF (congestive heart failure) (Acute) Date of Admission: 05/26/17 Date of Discharge: 05/30/17 - Primary Discharge Diagnosis Active and Suspected Problems Dyspnea (Acute) Edema (Acute) Atrial fibrillation with RVR (Acute) CHF (congestive heart failure) (Acute) - Secondary Discharge Diagnosis Chronic Problems Atrial flutter by electrocardiogram (Chronic) Diverticulosis (Chronic) Internal hemorrhoid (Chronic) GI bleed (Chronic) Hospital Course and Treatment Imaging Results: 05/30/17 10:00 Echo Transesophageal (LAYLA) [ECHO] Routine Clinical Impression(s) from Imaging Studies Chest X-Ray 05/26/17 14:28 IMPRESSION: Vascular congestion and mild CHF. Cardiomegaly. Electronically Signed: Felix Jiménez MD at 15:23 EST Tel [phone], Service support , Chest CTA 05/26/17 17:29 IMPRESSION: 1. No evidence of pulmonary embolism or aortic dissection. 2. There is a small right pleural effusion with a right lower lobe medial pleural region of consolidation with underlying nodule not excluded. There is an additional right upper lobe pleural-based 7 mm nodule. Multiple mediastinal dominant conglomerate lymph nodes are noted with some extent to the right hilar region. Overall concern is for infectious etiology and pleural effusion with reactive lymphadenopathy. Recommend follow-up imaging to document stability versus resolution as underlying neoplastic process is not excluded. Additional follow-up likely necessary if right upper lobe pleural nodule persists. Electronically Signed: Haroon Hyatt DO at 19:40 EST , Service support , Abdomen Ultrasound 05/27/17 17:59 IMPRESSION: Mild hepatomegaly and fatty infiltration of the liver. Thickened gallbladder wall. Right renal cyst. Small right pleural effusion. Electronically Signed: Felix Jiménez MD at 8:57 EST Tel [phone], Service support , José Miguel Francis MD Operations: None Procedures: 2-D Echocardiogram - Severely dilated left ventricle. The estimated ejection fraction is 10-15 %. Basal anteroseptal: Akinetic. Mid-Anterior : Severely Hypokinetic. Mid-Inferior: Severely Hypokinetic. There are regional wall motion abnormalities as specified. Moderately dilated right ventricle. The left atrium is severely enlarged. The right atrium is severely enlarged. Trivial tricuspid valve insufficiency. Right ventricular systolic pressure estimated to be 42 mmHg. Mild pulmonary hypertension., Cardiac catheterization - Right Heart pressures - elevated LEFT MAIN: Angiographically normal LEFT ANTERIOR DECENDING ARTERY: Mild luminal irregularities less than 30% CIRCUMFLEX ARTERY: PROX CIRC: 60 % Stenosis RIGHT CORONARY ARTERY: Mild luminal irregularities less than 30% RT PDA: Proximal - Angiographically normal, Cardioversion Summary of Care Provided: The patient is a 66 year old M presented with shortness of breath for 1 month. Previously had felt ill with that though patient presented to the emergency room after going to his primary care doctor and found to be in atrial fibrillation with RVR plus heart failure. In the emergency room patient received IV Lasix and was started on Lovenox for anticoagulation. Patient was started on amiodarone for his heart. Patient was seen in consultation by Dr. Francis. Patient had an echocardiogram that showed an EF of 10-15%. Unclear as to what the etiology of his cardiomyopathy is so patient did undergo a left heart catheterization on the 24 that showed an ejection fraction of 20% but minimal coronary artery disease with most being 60% in the proximal circumflex. No intervention was necessary. So for the etiology of the patient's cardiomyopathy could be viral could be due to the history of his alcohol abuse or other. Patient is on medications and will need to have that further followed up in regards to improvements of his cardiomyopathy. Patient also had atrial fibrillation or flutter and RVR. Patient underwent a cardioversion today that was successful and patient is currently normal sinus rhythm. Patient will continue with Coreg as well as amiodarone. Patient has a high [id number] score and does warrant anticoagulation. Patient has been changed over to Eliquis and will continue with that here on out. Patient also did have heart failure which is heart failure with reduced ejection fraction with an EF of anywhere between 10-20%. [] Discharge Diet: Low fat/ Low Cholesterol, 6 Cup Fluid Restriction, 2000 mg Sodium Diet Discharge Activity: Return to Normal Activity Call your doctor if you observe: Fever of 101 or Higher, Shortness of breath Home Medications: Medications to take at Discharge Amiodarone HCl [Cordarone] 200 mg PO DAILY #30 tab 05/30/17 Apixaban [Eliquis] 2.5 mg PO BID #60 tab 05/30/17 Bisacodyl [Dulcolax] 5 mg PO DAILY PRN #1 tablet 05/30/17 Carvedilol [Coreg (Beta James)] 12.5 mg PO BID #60 tab 05/30/17 Furosemide [Lasix] 40 mg PO BID@1000,1800 #60 tab 05/30/17 Losartan Potassium [Cozaar] 50 mg PO DAILY #30 tab 05/30/17 Potassium Chloride [K-Dur] 20 meq PO DAILY #30 tab 05/30/17 Senna [Senokot] 2 tab PO DAILY #30 tab 05/30/17 Following Prescrptions Were Given to Patient: Amiodarone HCl [Cordarone] 200 mg PO DAILY #30 tab Bisacodyl [Dulcolax] 5 mg PO DAILY PRN #1 tablet PRN Reason: Constipation Furosemide [Lasix] 40 mg PO BID@1000,1800 #60 tab Losartan Potassium [Cozaar] 50 mg PO DAILY #30 tab Potassium Chloride [K-Dur] 20 meq PO DAILY #30 tab Senna [Senokot] 2 tab PO DAILY #30 tab Apixaban [Eliquis] 2.5 mg PO BID #60 tab Carvedilol [Coreg (Beta James)] 12.5 mg PO BID #60 tab Primary Care Physician: Young Emerson MD [Primary Care Provider] - In 1 Week Please Follow Up With: José Miguel Francis MD When: 2-4 weeks Patient Instructions: Taking Medication to Control Heart Failure, What Is Heart Failure?, What Is Atrial Flutter/Atrial Fibrillation?, Heart Failure: Tracking Your Weight, Heart Failure: Making Changes to Your Diet, Heart Failure: Evaluating Your Heart, Heart Failure: Medications to Help Your Heart, Discharge Instructions for Atrial Fibrillation, Discharge Instructions for Heart Failure Disposition: Home Minutes spent on discharge:: 32 Patient Condition:: Good Meaningful Use Info Meaningful Use Diagnoses (Choose all that apply): CHF - CHF STEPHAN/ARB ordered at discharge?: Yes Documented LVEF (%): 20 Code Visit Inpatient E&M: 13510 Disch Hosp
--- NOTE | 2017-05-30 15:32 | DS.PCM_ITS ---
Discharge Date and Diagnosis - Problem List Patient Problems: Active and Suspected Problems Dyspnea (Acute) Edema (Acute) Atrial fibrillation with RVR (Acute) CHF (congestive heart failure) (Acute) Date of Admission: 05/26/17 Date of Discharge: 05/30/17 - Primary Discharge Diagnosis Active and Suspected Problems Dyspnea (Acute) Edema (Acute) Atrial fibrillation with RVR (Acute) CHF (congestive heart failure) (Acute) - Secondary Discharge Diagnosis Chronic Problems Atrial flutter by electrocardiogram (Chronic) Diverticulosis (Chronic) Internal hemorrhoid (Chronic) GI bleed (Chronic) Hospital Course and Treatment Imaging Results: 05/30/17 10:00 Echo Transesophageal (LAYLA) [ECHO] Routine Clinical Impression(s) from Imaging Studies Chest X-Ray 05/26/17 14:28 IMPRESSION: Vascular congestion and mild CHF. Cardiomegaly. Electronically Signed: Felix Jiménez MD at 15:23 EST Tel [phone], Service support , Chest CTA 05/26/17 17:29 IMPRESSION: 1. No evidence of pulmonary embolism or aortic dissection. 2. There is a small right pleural effusion with a right lower lobe medial pleural region of consolidation with underlying nodule not excluded. There is an additional right upper lobe pleural-based 7 mm nodule. Multiple mediastinal dominant conglomerate lymph nodes are noted with some extent to the right hilar region. Overall concern is for infectious etiology and pleural effusion with reactive lymphadenopathy. Recommend follow-up imaging to document stability versus resolution as underlying neoplastic process is not excluded. Additional follow-up likely necessary if right upper lobe pleural nodule persists. Electronically Signed: Haroon Hyatt DO at 19:40 EST , Service support , Abdomen Ultrasound 05/27/17 17:59 IMPRESSION: Mild hepatomegaly and fatty infiltration of the liver. Thickened gallbladder wall. Right renal cyst. Small right pleural effusion. Electronically Signed: Felix Jiménez MD at 8:57 EST Tel [phone], Service support , José Miguel Francis MD Operations: None Procedures: 2-D Echocardiogram - Severely dilated left ventricle. The estimated ejection fraction is 10-15 %. Basal anteroseptal: Akinetic. Mid-Anterior : Severely Hypokinetic. Mid-Inferior: Severely Hypokinetic. There are regional wall motion abnormalities as specified. Moderately dilated right ventricle. The left atrium is severely enlarged. The right atrium is severely enlarged. Trivial tricuspid valve insufficiency. Right ventricular systolic pressure estimated to be 42 mmHg. Mild pulmonary hypertension., Cardiac catheterization - Right Heart pressures - elevated LEFT MAIN: Angiographically normal LEFT ANTERIOR DECENDING ARTERY: Mild luminal irregularities less than 30% CIRCUMFLEX ARTERY: PROX CIRC: 60 % Stenosis RIGHT CORONARY ARTERY: Mild luminal irregularities less than 30% RT PDA: Proximal - Angiographically normal , Cardioversion Summary of Care Provided: The patient is a 66 year old M presented with shortness of breath for 1 month. Previously had felt ill with that though patient presented to the emergency room after going to his primary care doctor and found to be in atrial fibrillation with RVR plus heart failure. In the emergency room patient received IV Lasix and was started on Lovenox for anticoagulation. Patient was started on amiodarone for his heart. Patient was seen in consultation by Dr. Francis. Patient had an echocardiogram that showed an EF of 10-15%. Unclear as to what the etiology of his cardiomyopathy is so patient did undergo a left heart catheterization on the 24 that showed an ejection fraction of 20% but minimal coronary artery disease with most being 60% in the proximal circumflex. No intervention was necessary. So for the etiology of the patient's cardiomyopathy could be viral could be due to the history of his alcohol abuse or other. Patient is on medications and will need to have that further followed up in regards to improvements of his cardiomyopathy. Patient also had atrial fibrillation or flutter and RVR. Patient underwent a cardioversion today that was successful and patient is currently normal sinus rhythm. Patient will continue with Coreg as well as amiodarone. Patient has a high [id number] score and does warrant anticoagulation. Patient has been changed over to Eliquis and will continue with that here on out. Patient also did have heart failure which is heart failure with reduced ejection fraction with an EF of anywhere between 10-20%. [] Discharge Diet: Low fat/ Low Cholesterol, 6 Cup Fluid Restriction, 2000 mg Sodium Diet Discharge Activity: Return to Normal Activity Call your doctor if you observe: Fever of 101 or Higher, Shortness of breath Home Medications: Medications to take at Discharge Amiodarone HCl [Cordarone] 200 mg PO DAILY #30 tab 05/30/17 Apixaban [Eliquis] 2.5 mg PO BID #60 tab 05/30/17 Bisacodyl [Dulcolax] 5 mg PO DAILY PRN #1 tablet 05/30/17 Carvedilol [Coreg (Beta James)] 12.5 mg PO BID #60 tab 05/30/17 Furosemide [Lasix] 40 mg PO BID@1000,1800 #60 tab 05/30/17 Losartan Potassium [Cozaar] 50 mg PO DAILY #30 tab 05/30/17 Potassium Chloride [K-Dur] 20 meq PO DAILY #30 tab 05/30/17 Senna [Senokot] 2 tab PO DAILY #30 tab 05/30/17 Following Prescrptions Were Given to Patient: Amiodarone HCl [Cordarone] 200 mg PO DAILY #30 tab Bisacodyl [Dulcolax] 5 mg PO DAILY PRN #1 tablet PRN Reason: Constipation Furosemide [Lasix] 40 mg PO BID@1000,1800 #60 tab Losartan Potassium [Cozaar] 50 mg PO DAILY #30 tab Potassium Chloride [K-Dur] 20 meq PO DAILY #30 tab Senna [Senokot] 2 tab PO DAILY #30 tab Apixaban [Eliquis] 2.5 mg PO BID #60 tab Carvedilol [Coreg (Beta James)] 12.5 mg PO BID #60 tab Primary Care Physician: Young Emerson MD [Primary Care Provider] - In 1 Week Please Follow Up With: José Miguel Francis MD When: 2-4 weeks Patient Instructions: Taking Medication to Control Heart Failure, What Is Heart Failure?, What Is Atrial Flutter/Atrial Fibrillation?, Heart Failure: Tracking Your Weight, Heart Failure: Making Changes to Your Diet, Heart Failure : Evaluating Your Heart, Heart Failure: Medications to Help Your Heart, Discharge Instructions for Atrial Fibrillation, Discharge Instructions for Heart Failure Disposition: Home Minutes spent on discharge:: 32 Patient Condition:: Good Meaningful Use Info Meaningful Use Diagnoses (Choose all that apply): CHF - CHF STEPHAN/ARB ordered at discharge?: Yes Documented LVEF (%): 20 Code Visit Inpatient E&M: 44413 Disch Hosp
--- NOTE | 2017-05-30 16:04 | CASEMGMT ---
Per Dr. Heredai, pt to go home on Eliquis and scripts faxed to [facility] retail pharmacy. Per Aretha in the pharmacy, pt's Eliquis will be $24.00. Amy MARKHAM aware and voices understanding at this time. Minerva MARKHAM CM
== END 2017-05-30 17:36 | disposition home or self-care (01) | DRG 286 ==
LOC: ED 14:52 → PCU 16:13
PROVIDERS: Family Medicine; Internal Medicine Cardiovascular Disease; Admitting Provider Internal Medicine; Emergency Provider Emergency Medicine; Family Provider Family Medicine; PCP Family Medicine
DX: I48.91 Unspecified atrial fibrillation (principal); I50.21 Acute systolic (congestive) heart failure; K57.91 Diverticulosis of intestine, part unspecified, without perforation or abscess with bleeding; I42.9 Cardiomyopathy, unspecified; I25.10 Atherosclerotic heart disease of native coronary artery without angina pectoris; Z87.891 Personal history of nicotine dependence; I48.92 Unspecified atrial flutter; K64.8 Other hemorrhoids
CPT/HCPCS: 36415; 71045; 71275; 76705; 80048; 80061; 80076; 82803; 83690; 83880; 84439; 84443; 84484; 85025; 85027; 85379; 85610; 85730; 92960; 93005; 93306; 93312; 93320; 93325; 93460; 93971; 97802; 99152; 99153; 99285; 99406; J7030; J7040; Q9967; A4216; C1751; C1769; C1894; J1940

== ENCOUNTER → 2017-06-27 11:50 | Outpatient (CLI) | payer MEDICARE, OTHER, SELFPAY ==
[2017-06-27 14:23] LABS: Anion Gap 7 (5-15); BUN 25 mg/dL (7-18); BUN/Creat Ratio 20.5 RATIO (10-20); Calcium,Total 9.1 mg/dL (8.5-10.1); Chloride 106 mmol/L (98-107); Creatinine, Serum 1.22 mg/dL (0.70-1.30); EST Glomerular Filtration Rate 63 mL/min (>60); Est Glom Filt Rate - Afr Amer 77 mL/min (>60); Glucose 83 mg/dL (74-106); Potassium 4.2 mmol/L (3.5-5.1); Sodium Level 141 mmol/L (136-145)
== END ==
PROVIDERS: Family Provider Family Medicine; PCP Family Medicine; Visit Provider Physician Assistant Medical
DX: I48.91 Unspecified atrial fibrillation (principal); I50.9 Heart failure, unspecified
CPT/HCPCS: 36415; 80048

== ENCOUNTER → 2017-09-17 10:37 | Outpatient (CLI) | payer MEDICARE, OTHER, SELFPAY ==
--- NOTE | 2017-09-17 10:39 | ECHOD_ITS ---
Reason For Study: CHF Procedure This was a 2D Doppler, Color Flow transthoracic echocardiogram. Exam performed in department. Left Ventricle Normal size and thickness. The estimated ejection fraction is 60 %. Stage 1 diastolic dysfunction. No regional wall motion abnormalities noted. Right Ventricle Normal size and thickness. Normal systolic function. Atria Normal left atrium. Normal right atrium. Normal atrial septum. Mitral Valve The mitral valve is structurally normal. No prolapse or stenosis seen. Tricuspid Valve Normal tricuspid valve. Unable to estimate RV systolic pressure due to inadequate jet, pulmonary artery pressure probably normal. Aortic Valve Normal aortic valve. Trisinus/trileaflet aortic valve. Pulmonic Valve Normal pulmonic valve. Great Vessels Normal aortic root. Normal arch. Normal inferior vena cava. Inferior vena cava collapse with sniff. Pericardium/Pleural No pericardial effusion. MMode/2D Measurements & Calculations LVIDd: 4.8 cm IVSd: 1.3 cm Ao root diam: 3.8 cm LVIDs: 3.2 cm LVPWd: 1.1 cm LA dimension: 4.3 cm RVDd: 3.7 cm FS: 33.3 % LAV(MOD-bp): 54.3 ml LVAd ap4: 33.5 cm2 SV(MOD-sp4): 69.6 ml LAV(MOD-bp) Indexed: 27.7 ml/m2 EDV(MOD-sp4): 114.5 ml LAV(MOD-sp2): 69.1 ml EDV(sp4-el): 116.8 ml LAV(MOD-sp4): 43.7 ml LVAs ap4: 19.2 cm2 ESV(MOD-sp4): 44.9 ml ESV(sp4-el): 42.7 ml EF(MOD-sp4): 60.8 % EF(sp4-el): 63.4 % SV(sp4-el): 74.1 ml LA A4 area: 17.2 cm2 RA A4 area: 19.3 cm2 Time Measurements MV dec time: 0.21 sec Doppler Measurements & Calculations MV E max ben: 59.3 cm/sec Lat Peak E' Ben: 7.8 cm/sec Med Peak E' Ben: 6.0 cm/sec MV A max ben: 80.3 cm/sec E/E' lat: 7.6 E/E' med: 9.9 MV E/A: 0.74 MV V2 max: 83.5 cm/sec MV P1/2t max ben: 62.8 cm/sec Ao V2 max: 134.2 cm/sec MV max P.8 mmHg MV P1/2t: 88.8 msec Ao max P.2 mmHg MV V2 mean: 42.0 cm/sec MV dec slope: 207.1 cm/sec2 Ao V2 mean: 91.5 cm/sec MV mean P.84 mmHg MVA(P1/2t): 2.5 cm2 Ao mean P.7 mmHg MV V2 VTI: 22.6 cm Ao V2 VTI: 26.7 cm LV V1 max: 97.9 cm/sec PA V2 max: 122.3 cm/sec LV V1 max P.8 mmHg LV V1 mean P.8 mmHg LV V1 mean: 61.9 cm/sec LV V1 VTI: 20.6 cm Interpretation Summary The estimated ejection fraction is 60 %. Stage 1 diastolic dysfunction. Unable to estimate RV systolic pressure due to inadequate jet, pulmonary artery pressure probably normal. Compared to echo report dated 05/27/2017, LV Function has normalized and RVSP is now unable to be acquired, suggesting normalization of RVSP as well. Ordering Physician: Dina Solorzano Referring Physician: Dina Solorzano Performed By: Hal Garcia RCS
== END ==
PROVIDERS: Family Provider Family Medicine; PCP Family Medicine; Visit Provider Physician Assistant Medical
DX: I50.9 Heart failure, unspecified (principal); I43 Cardiomyopathy in diseases classified elsewhere
CPT/HCPCS: 93306

== ENCOUNTER → 2017-09-24 15:32 | Outpatient (CLI) | payer MEDICARE, OTHER, SELFPAY ==
[2017-09-24 17:47] LABS: AST(SGOT) 17 U/L (15-37); Alanine Aminotransfer ALT/SGPT 29 U/L (16-61); Albumin, Serum 3.8 g/dL (3.2-5.0); Alkaline Phosphatase 62 U/L (45-117); Anion Gap 6 (5-15); BUN 17 mg/dL (7-18); BUN/Creat Ratio 12.2 RATIO (10-20); Bilirubin, Direct < 0.05 mg/dL (0.00-0.30); Chloride 107 mmol/L (98-107); Creatinine, Serum 1.39 mg/dL (0.70-1.30); EST Glomerular Filtration Rate 54 mL/min (>60); Est Glom Filt Rate - Afr Amer 66 mL/min (>60); Globulin 3.7 g/dL (2.2-4.2); Glucose 94 mg/dL (74-106); Potassium 4.9 mmol/L (3.5-5.1); Protein, Total 7.5 g/dL (6.4-8.2); Sodium Level 141 mmol/L (136-145); T4 Total, Thyroxin 9.2 ug/dL (4.5-12.1); Thyroid Stim Hormone (TSH) 3.32 uIU/mL (0.358-3.74)
== END ==
PROVIDERS: Family Provider Family Medicine; PCP Family Medicine; Visit Provider Physician Assistant Medical
DX: I50.9 Heart failure, unspecified (principal); I48.91 Unspecified atrial fibrillation; I43 Cardiomyopathy in diseases classified elsewhere; Z79.899 Other long term (current) drug therapy
CPT/HCPCS: 80048; 80076; 84436; 84443

== ENCOUNTER → 2017-12-24 14:19 | Outpatient (CLI) | payer MEDICARE, OTHER, SELFPAY ==
[2017-12-24 15:51] LABS: Anion Gap 9 (5-15); BUN 22 mg/dL (7-18); BUN/Creat Ratio 15.7 RATIO (10-20); Chloride 106 mmol/L (98-107); EST Glomerular Filtration Rate 54 mL/min (>60); Est Glom Filt Rate - Afr Amer 65 mL/min (>60); Glucose 128 mg/dL (74-106); Magnesium 2.3 mg/dL (1.6-2.6); Potassium 4.1 mmol/L (3.5-5.1); Sodium Level 141 mmol/L (136-145)
== END ==
PROVIDERS: Family Provider Family Medicine; PCP Family Medicine; Visit Provider Family Medicine
DX: I10 Essential (primary) hypertension (principal); I42.9 Cardiomyopathy, unspecified
CPT/HCPCS: 36415; 80048; 83735

== ENCOUNTER → 2018-05-18 15:34 | Outpatient (CLI) | payer MEDICARE, OTHER, SELFPAY ==
[2018-05-18 14:59] VITALS: BMI 30.6
[2018-05-18 17:49] LABS: T4 Total, Thyroxin 8.7 ug/dL (4.5-12.1); Thyroid Stim Hormone (TSH) 2.49 uIU/mL (0.358-3.74)
== END ==
PROVIDERS: Family Provider Family Medicine; PCP Family Medicine; Referring Provider Internal Medicine Cardiovascular Disease; Visit Provider Internal Medicine Cardiovascular Disease
DX: Z79.899 Other long term (current) drug therapy (principal)
CPT/HCPCS: 36415; 84436; 84443

== ENCOUNTER → 2018-05-26 09:50 | Outpatient (CLI) | payer MEDICARE, OTHER, SELFPAY ==
[2018-05-18 14:59] VITALS: BMI 30.6
--- NOTE | 2018-05-26 11:05 | RAD_ITS ---
STUDY: X-RAY CHEST REASON FOR EXAM: Male, 67 years old. Long-term drug therapy. Amiodarone. TECHNIQUE: PA and lateral views of the chest. COMPARISON: May 26, 2017 FINDINGS: There is no new focal consolidation. There are stable prominent interstitial markings. The lungs remain hyperinflated. Normal size heart. Normal mediastinum and davion. Normal visualized pulmonary arteries. Normal visualized aortic arch and descending thoracic aorta. There are diffuse degenerative changes of the visualized thoracic spine. Normal visualized ribs, clavicles, and shoulders. There is no demonstrated abnormality of the visualized soft tissue structures of the upper abdomen. RAD/Chest PA and Lateral IMPRESSION: No acute cardiopulmonary process. Electronically Signed: Vesta Andrade MD at 23:14 EST Tel , Service support ,
--- NOTE | 2018-05-27 11:16 | PFTCOMP_ITS ---
COMPLETE PULMONARY FUNCTION TEST INTERPRETATION Brief HPI: Patient is a 67 year old male, currently under the care of Dr. Francis, who presents to [facility] for complete pulmonary function tests secondary to diagnosis of high risk meds. Respiratory therapist reports good effort and reproducible results. Interpretation: Forced expiration spirometry shows a mild large airways obstructive ventilatory defect with an FEV1 of 87% predicted. There is no significant bronchodilator response by strict ATS criteria. Spirograms are of good quality and plateau slowly, indicating slowly emptying areas of the lungs. The respiratory flow volume loop shows decreased expiratory flow rates at all lung volumes consistent with airway obstruction. Lung volumes by body plethysmography show a normal total lung capacity at 8 L, 110% predicted. All other lung volumes are within normal limits. Diffusion capacity by carbon monoxide is normal at 75% predicted. The airway resistance is normal. No previous pulmonary function tests were available for review. Impression: Irreversible mild large airways obstructive ventilatory defect
--- OUTSIDE RECORDS SUMMARY | 2018-07-28 11:43 | XMS RPT_ITS ---
:1950 Author Organization OHIP Support Name Relationship Address Phone BUTLER AYM Unavailable [address] + [place] [address] HGUO AGUILARUN Unavailable [address] + [place] [address] R Unavailable Unavailable Unavailable BUTLER, AMY Unavailable [address] + [place] [address] HUGO AGUILARUN Unavailable [address] + [place] [address] R Unavailable Unavailable Unavailable BUTLER, AMY Unavailable [address] + [place] [address] HUGO AGUILARUN Unavailable [address] + [place] [address] R Unavailable Unavailable Unavailable BUTLER, AMY Unavailable [address] + [place] [address] HUGO AGUILARUN Unavailable [address] + [place] [address] R Unavailable Unavailable Unavailable BUTLER, AMY Unavailable [address] + [place] [address] HUGO AGUILARUN Unavailable [address] + [place] [address] R Unavailable Unavailable Unavailable BUTLER, AMY Unavailable [address] + [place] [address] NEDANNY DEL Unavailable [address] + [place] [address] R Unavailable Unavailable Unavailable BUTLER, AMY Unavailable [address] + [place] [address] NEDANNY DEL Unavailable [address] + [place] [address] R Unavailable Unavailable Unavailable BUTLER, AMY Unavailable [address] + [place] [address] HUGO AGUILARUN Unavailable [address] + [place] [address] R Unavailable Unavailable Unavailable BUTLER, AMY Unavailable [address] + [place] [address] HUGO AGUILARUN Unavailable [address] + [place] [address] R Unavailable Unavailable Unavailable BUTLER, AMY Unavailable [address] + [place] [address] HUGO AGUILARUN Unavailable [address] + [place] [address] R Unavailable Unavailable Unavailable BUTLER, AMY Unavailable [address] + [place] [address] HUGO AGUILARUN Unavailable [address] + [place] [address] R Unavailable Unavailable Unavailable BUTLER, AMY Unavailable [address] + [place] [address] HUGO AGUILARUN Unavailable [address] + [place] [address] R Unavailable Unavailable Unavailable BUTLER, AMY Unavailable [address] + [place] [address] HUGO AGUILARUN Unavailable [address] + [place] [address] R Unavailable Unavailable Unavailable BUTLER, AMY Unavailable [address] + [place] [address] HUGO AGUILARUN Unavailable [address] + [place] [address] R Unavailable Unavailable Unavailable BUTLER, AMY Unavailable [address] + [place] [address] JEFF DEL Unavailable [address] [phone] [place] [address] R Unavailable Unavailable Unavailable Care Team Providers Name Role Phone José Miguel Alvarenga Attending Unavailable José Miguel Alvarenga Referring Unavailable Emerson, Young Primary Care Unavailable Young Emerson Attending Unavailable Young Emerson Primary Care Unavailable Dina Solorzano Attending Unavailable Dina Solorzano Referring Unavailable Ki, Young Primary Care Unavailable Dina Solorzano Attending Unavailable Dina Solorzano Referring Unavailable Emerson, Young Primary Care Unavailable Dina Solorzano Attending Unavailable Emerson, Young Referring Unavailable Emerson, Young Primary Care Unavailable José Miguel Alvarenga Attending Unavailable José Miguel Alvarenga Referring Unavailable Emerson, Young Primary Care Unavailable José Miguel Alvarenga Consulting Unavailable José Miguel Alvarenga Attending Unavailable Emerson, Young Referring Unavailable José Miguel Alvarenga Attending Unavailable Alvarenga, José Miguel Referring Unavailable Emerson, Young Primary Care Unavailable José Miguel Alvarenga Attending Unavailable José Miguel Alvarenga Referring Unavailable Emerson, Young Primary Care Unavailable José Miguel Alvarenga Attending Unavailable Alvarenga, José Miguel Referring Unavailable Emerson, Young Primary Care Unavailable José Miguel Alvarenga Attending Unavailable Emerson, Young Referring Unavailable Emerson, Young Primary Care Unavailable Juna, Kenny Admitting Unavailable José Miguel Alvarenga Consulting Unavailable Young Heredia Attending Unavailable José Miguel Alvarenga Attending Unavailable Dina Solorzano Attending Unavailable Emerson, Young Primary Care Unavailable Dina Solorzano Attending Unavailable Emerson, Young Referring Unavailable PROBLEMS PROBLEMS DATE TYPE CONDITION / CODE ATTENDING STATUS SOURCE 05/29/2018 Unknown I50.9 - Heart José Miguel Alvarenga Active [facility] failure, unspecified Community / I50.9(ICD-10) Hospital Repository 05/29/2018 Unknown I43 - Cardiomyopathy Tito José Miguel Active [facility] in diseases Community classified elsewhere Hospital / I43(ICD-10) Repository 05/26/2018 Unknown Z79.899 - Other long José Miguel Alvarenga Active [facility] term (current) drug Community therapy / Hospital Z79.899(ICD-10) Repository 05/18/2018 Unknown I48.91 - Unspecified José Miguel Alvarenga Active [facility] atrial fibrillation / Community I48.91(ICD-10) Hospital Repository 05/18/2018 Unknown I48.92 - Unspecified José Miguel Alvarenga Active [place] atrial flutter / Community I48.92(ICD-10) Hospital Repository 05/18/2018 Unknown I25.10 - José Miguel Alvarenga Active [facility] Atherosclerotic heart Community disease of [facility] coronary artery Repository without angina pectoris / I25.10(ICD-10) 12/24/2017 Unknown I10 - Essential Emerson, Young Active [facility] (primary) Community hypertension / Hospital I10(ICD-10) Repository PROCEDURES PROCEDURES No Procedure Records FoundRESULTS RESULTS STRESS TEST ECHO W/O Observed: 05/29/2018 Status: F Source: [facility] Cardiovascular Services [address] [place] [address] Stress Test Echo w/o Contrast MR#: [id number] Acct: [id number] Name: BEATRICE AGUILAR Rep #: [id number] : 1950 67 From: José Miguel Alvarenga MD Primary Care: Ki VENTURA,Young Status: REG CLI Ordering Dr: José Miguel Alvarenga MD Sex: M C Reason For Study: CAD/ASHD Stress Results Protocol: Stress Echocardiogram Maximum Predicted HR: 154 bpm Target HR: 131 bpm % Maximum Predicted HR: 92 % DurationHeart Rate Stage (mm:ss) (bpm) BP Comment BASELINE 65 153/68 LOW PROTOCOL- STAGE 1 3:00 112 180/80 LOW PROTOCOL- STAGE 2 1:37 142 / SL SOB, T WAVE INVERSION NOTED RECOVERY 75 184/100 Stress Duration: 4:37 mm:ss Maximum Stress HR: 142 bpm Baseline Echocardiogram Findings The estimated ejection fraction is 65 %. Stress Echo Wall motion Data Resting WM Intermediate WM Stress WM Resting Wall Motion Wall Motion Stress No regional wall motion Posterior-Basal: Severely abnormalities noted. hypokinetic. Mid-Lateral : Severely Hypokinetic. Mid-Posterior: Severely Hypokinetic. EKG Data Normal intervals are noted. The patient exercised according to the regular Low protocol for a total duration of 4:37. The maximum heart rate attained was 142 beats per minute. This was 92% of maximum predicted heart rate. The patient exercised into stage 2 of the Low protocol. The stress ECG displays diffuse abnormal ST segments. No arrhythmias noted. Interpretation Summary Posterior-Basal: Severely hypokinetic. Mid-Lateral : Severely Hypokinetic. Mid-Posterior: Severely Hypokinetic. The estimated ejection fraction is 65 %. Abnormal, adequate, treadmill echocardiogram. Positive for ischemia by both EKG and echocardiographic criteria. Below average exercise capacity for age. Baseline hypertension with hypertensive blood pressure response to age. Patient appeared to developed inferior posterior lateral hypokinesis seen in several views. In addition he developed inferior lateral ST segment depression and T wave inversion which progressed to around 13 minutes into recovery. No anginal symptoms noted. No arrhythmias noted. Final LVEF of 45%. Patient was referred to our office for repeat catheterization. No complications. Ordering Physician: José Miguel Alvarenga MD Referring Physician: José Miguel Alvarenga Performed By: AB 05/29/18 1529 Date José Miguel Alvarenga MD CC: José Miguel Alvarenga MD; Young Emerson MD Date Dictated: 05/29/18 1305 Date Transcribed: 05/29/18 [address] [place]: Signed CBC-COMPLETE BLOOD CNT Collected: 05/29/2018 Status: F Source: [facility] NO DIFF 2:32 PM [facility] REPOSITORY TYPE CODE TESTS RESULT OUT OF RANGE REFERENCE UNITS LAB L100.1000 4.4-11.0 K/mm3 Normal WBC 9.0 LAB L100.1200 4.6-6.2 M/mm3 Normal RBC 4.89 LAB L100.1300 13.0-16.5 g/dl Normal HGB 15.4 LAB L100.1400 40-54 % Normal HCT 46.4 LAB L100.1500 80-94 fL High MCV 94.9 LAB L100.1600 27.0-32.0 pg Normal MCH 31.5 LAB L100.1700 32-36 g/gl Normal MCHC 33.2 LAB L100.1810 11.6-14.6 % Normal RDW CV 13.5 LAB L100.1820 35.1-43.9 fl High RDW SD 45.6 LAB L100.1900 150-450 K/mm3 Normal PLT 217 LAB L100.2000 6.2-12.0 fl Normal MPV 10.4 Performed By: #### L100.0500 #### [facility] [address] [place], [address] PROTHROMBIN TIME W/INR Collected: 05/29/2018 Status: F Source: [place] 2:32 PM [facility] REPOSITORY TYPE CODE TESTS RESULT OUT OF RANGE REFERENCE UNITS LAB L300.4150 11.7-14.9 SECONDS Normal PROTIME 13.2 LAB L300.4200 Normal INR 1.0 Performed By: #### L300.3900, L300.4310 #### [facility] [address] [place], [address] PARTIAL THROMBOPLAST Collected: 05/29/2018 Status: F Source: [place] TIME 2:32 PM [facility] REPOSITORY TYPE CODE TESTS RESULT OUT OF RANGE REFERENCE UNITS LAB L300.4310 24.1-36.2 Seconds Normal PTT 32.6 Performed By: #### L300.3900, L300.4310 #### [facility] [address] [place], [address] BASIC METABOLIC Collected: 05/29/2018 Status: F Source: [place] PROFILE (BMP) 2:32 PM [facility] REPOSITORY TYPE CODE TESTS RESULT OUT OF RANGE REFERENCE UNITS LAB L501.0100 74-106 mg/dL Normal GLU 91 Result Comment: Please note revised GLUCOSE reference range effective 2017. LAB L501.1000 7-18 mg/dL Normal BUN 14 LAB L501.1100 0.70-1.30 mg/dL Normal CREAT,SERUM 1.23 Result Comment: The validity of the calculated GFR AND GFRAA in patients over 70 years has not been determined. Clinical correlation is essential. LAB L501.1110 >60 mL/min Normal EST GFR 63 Result Comment: Non- GFR Calc LAB L501.1115 >60 mL/min Normal EST GFR - AA 76 Result Comment: GFR Calc LAB L501.1300 10-20 RATIO Normal BUN/CRE 11.4 LAB L501.2200 8.5-10.1 mg/dL CA Normal 9.1 LAB L501.5300 136-145 mmol/L NA Normal 143 LAB L501.5600 3.5-5.1 mmol/L K Normal 4.4 LAB L501.5900 98-107 mmol/L High CL 110 LAB L501.6100 21.0-32.0 mmol/L Normal CO2 27.0 LAB L501.6200 5-15 Normal GAP 6 Performed By: #### L500.2500 #### [facility] [address] [place], [address] PULMONARY FUNCTION Observed: 05/27/2018 Status: F Source: [place] REPORT COMP 2:33 PM [facility] REPOSITORY [facility] Pulmonary Services/Neurology [address] [place] [address] MR#: [id number] Acct: [id number] Name: BEATRICE AGUILAR Rep #: [id number] : 1950 67 From: Low Winkler MD Referring Dr: José Miguel Alvarenga MD Status: REG CLI Ordering Dr: Date: Location: [facility] Sex: M C COMPLETE PULMONARY FUNCTION TEST INTERPRETATION Brief HPI: Patient is a 67 year old male, currently under the care of Dr. Alvarenga, who presents to [facility] for complete pulmonary function tests secondary to diagnosis of high risk meds. Respiratory therapist reports good effort and reproducible results. Interpretation: Forced expiration spirometry shows a mild large airways obstructive ventilatory defect with an FEV1 of 87% predicted. There is no significant bronchodilator response by strict ATS criteria. Spirograms are of good quality and plateau slowly, indicating slowly emptying areas of the lungs. The respiratory flow volume loop shows decreased expiratory flow rates at all lung volumes consistent with airway obstruction. Lung volumes by body plethysmography show a normal total lung capacity at 8 L, 110% predicted. All other lung volumes are within normal limits. Diffusion capacity by carbon monoxide is normal at 75% predicted. The airway resistance is normal. No previous pulmonary function tests were available for review. Impression: Irreversible mild large airways obstructive ventilatory defect 05/27/18 1433 <Electronically signed by Low Winkler MD> Date Low Winkler MD CC: Low Winkler MD; José Miguel Alvarenga MD; Young Emerson MD Date Dictated: 05/27/18 1114 Date Transcribed: 05/27/18 111[address] [place]: MARIANA Signed CHEST PA AND LATERAL Observed: 05/26/2018 Status: F Source: [facility] 9:55 AM [facility] Imaging Services [address] [place] [address] Chest PA and Lateral MR#: [id number] Acct: [id number] Name: BEATRICE AGUILAR Rep #: [id number] : 1950 M 67 From: Vesta Andrade MD PCP: Young Emerson MD Status: REG CLI Study: Chest PA and Lateral Date of Exam: 05/26/18 Exam# [id number] Ordering Dr: José Miguel Alvarenga MD STUDY: X-RAY CHEST REASON FOR EXAM: Male, 67 years old. Long-term drug therapy. Amiodarone. TECHNIQUE: PA and lateral views of the chest. COMPARISON: May 26, 2017 FINDINGS: There is no new focal consolidation. There are stable prominent interstitial markings. The lungs remain hyperinflated. Normal size heart. Normal mediastinum and davion. Normal visualized pulmonary arteries. Normal visualized aortic arch and descending thoracic aorta. There are diffuse degenerative changes of the visualized thoracic spine. Normal visualized ribs, clavicles, and shoulders. There is no demonstrated abnormality of the visualized soft tissue structures of the upper abdomen. RAD/Chest PA and Lateral IMPRESSION: No acute cardiopulmonary process. Electronically Signed: Vesta Andrade MD at 23:14 EST Tel , Service support , CC: José Miguel Alvarenga MD; Young Emerson MD [place]: Signed T4 TOTAL, THYROXIN Collected: 05/18/2018 Status: F Source: [place] 3:42 PM [facility] REPOSITORY TYPE CODE TESTS RESULT OUT OF RANGE REFERENCE UNITS LAB L501.9310 4.5-12.1 ug/dL T4 Normal THYROXIN 8.7 Performed By: #### L501.9310, L501.9520 #### [facility] [address] [place], [address] THYROID STIM HORMONE Collected: 05/18/2018 Status: F Source: [facility] (TSH) 3:42 PM [facility] REPOSITORY TYPE CODE TESTS RESULT OUT OF RANGE REFERENCE UNITS LAB L501.9520 0.358-3.74 uIU/mL Normal TSH 2.49 Performed By: #### L501.9310, L501.9520 #### [facility] [address] [place], [address] CARDIOLOGY VISIT Observed: 05/18/2018 Status: F Source: [place] REPORT 3:20 PM [facility] REPOSITORY [facility] [address] [place] [address] OFFICE VISIT Date of Service: 05/18/18 MR#: [id number] Acct: [id number] Name: BEATRICE AGUILAR Rep #: [id number] : 1950 Provider: José Miguel Alvarenga MD Age/Sex: 67/M [place] [facility] [place]: Signed HPI HPI Chief Complaint: Routine f/u Details: BEATRICE AGUILAR, is a 67 M who presents to the office today for a cardiovascular follow-up. In June 2017 he was hospitalized for atrial fibrillation with RVR. He was noted to have an ejection fraction of 15%. He did have a left and heart catheterization which showed a 60% stenosis in his proximal left circumflex, and 30% stenosis of his LAD and RCA. He was successfully cardioverted and discharged home on Coreg, amiodarone and Eliquis. Prior to his hospitalization he noted that he was extremely fatigued, SOB and had edema. He was also dealing with the grief from the loss of his . Repeat echocardiogram after cardioversion on 09/17/17 showed normalization of his LV function with an EF around 60%, unable to quantitate RVSP. From a cardiac standpoint, patient is doing well. He does not have any chest discomfort/heaviness/tightness. His exercise tolerance is stable for his age. He does not have any worsening symptoms of shortness of breath. He denies any PND. He does not have any orthopnea. He does not have any symptoms of congestive heart failure. He does not have any palpitations that he is aware of. He does not have any lightheadedness or dizziness. He does not have any near-syncope or syncope. He does not have any lower extremity edema. He does not have any symptoms of claudication. In our office today's blood pressure is 140/80, pulse is 64 and regular. His physical exam is as below. His lipids as of 05/26/17 showed an LDL of 115, and an HDL of 27. Repeat lipids are pending. EKG dated 05/18/18 shows normal sinus rhythm, normal axis, normal intervals, QT corrected of 422 ms, no evidence of previous myocardial infarct. There is evidence of lateral T wave inversion. 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 Is patient in pain?: No Allergies grass pollen Allergy (Verified 05/12/18 18:41) unknown wool Allergy (Verified 05/12/18 18:41) unknown Medications Bisacodyl [Dulcolax] 5 mg PO DAILY PRN #1 tab 05/30/17 [Rx Confirmed 05/12/18] Senna [Senokot] 2 tab PO DAILY #30 tab 05/30/17 [Rx Confirmed 05/12/18] amiodarone 200 mg tablet 200 mg PO DAILY #90 tab 05/18/18 [Rx Confirmed 05/18/18] apixaban 2.5 mg tablet 2.5 mg PO BID #180 tab 05/18/18 [Rx Confirmed 05/18/18] atorvastatin 20 mg tablet 20 mg PO QHS #90 tab 05/18/18 [Rx Confirmed 05/18/18] carvedilol 12.5 mg tablet 12.5 mg PO BID #180 tab 05/18/18 [Rx Confirmed 05/18/18] furosemide 40 mg tablet 40 mg PO QDAY #90 tab 05/18/18 [Rx Confirmed 05/18/18] losartan 50 mg tablet 50 mg PO DAILY #90 tab 05/18/18 [Rx Confirmed 05/18/18] potassium chloride ER 20 mEq tablet,extended release(part/cryst) 20 meq PO DAILY #90 tab 05/18/18 [Rx Confirmed 05/18/18] sildenafil 100 mg tablet 100 mg PO DAILY PRN #30 tab 05/18/18 [Rx Confirmed 05/18/18] [facility] Medical History 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) Internal hemorrhoid (Chronic) Diverticulosis (Chronic) CHF (congestive heart failure) (Chronic) Atrial fibrillation with RVR (Chronic) Surgical History History of vasectomy (Chronic) Family History Father Heart disease Social History Smoking Status: Former smoker alcohol intake: current alcohol intake frequency: holidays/special occasions only Alcohol type: beer substance use type: does not use ROS Const Const: Positive for other (Feels well); negative for fatigue, weakness, body ache, fever(s), headache(s), chills, frequent falls, night sweats, daytime sleepiness, difficulty sleeping, excessive sweating, weight gain, weight loss, increased appetite, poor appetite or anorexia Eyes Eyes: Negative for blind spots, loss of peripheral vision, transient loss of vision, blurry vision, change in vision, double vision, floaters, tunnel vision or other ENT ENT: Negative for headache(s), dizziness, hearing loss, tinnitus, Nosebleed/epistaxis, balance problems, post nasal drip, lip swelling, tongue swelling, bleeding gums, hoarseness, neck pain, dry mouth or other Cardio Chest Pain: No Palpitations: No Edema: None Muscle aches with walking: Bilateral (Mild, right > left but states had pizza last night) Resp Respiratory: Negative for SOB with activity, SOB at rest, SOB orthopnea\SOB lying down, Coughing up blood/hemoptysis, chest congestion, pain on inspiration, snoring, stridor, wheezing, crackles, paroxysmal nocturnal dyspnea or other GI GI: Negative nausea, vomiting, heartburn, constipation, belching, bloating, cramping, vomiting blood/hematemesis, bright, red blood in stools, black,tarry stools, loose stools, Difficulty Swallowing or other : Negative for hematuria, frequent nighttime urination/ nocturia, erectile dysfunction or abnormal vaginal bleeding Musc Musc: Negative for balance problems, muscle aches/ myalgia, muscle weakness or joint pain Skin Skin: Negative redness, non-healing lesions, rash, unusual bruising, skin ulcer, wounds, jaundice or other Neuro Neuro: Negative for weakness, headache(s), frequent falls, blurry vision, double vision, dizziness, lightheadedness, near syncope, syncope, orthostatic symptoms, confusion, memory loss, restless legs, vertigo, seizures, lack of coordination or other Terrance Hematologic/Lymphatic: Negative for easy bleeding, easy bruising, enlarged lymph nodes or other Endo Endo: Negative for fatigue, excessive sweating, cold intolerance, heat intolerance, flushing, increased thirst/drinking, increased hunger, hair loss, hair growth or other Psych Psych: Negative for anxiety, depression, thoughts of harming anyone, thoughts of harming yourself, visual hallucinations, panic attacks or audible hallucinations Allergy Allergy/Immunology: Negative for lip swelling, Negative for tongue swelling, Negative for rash, Negative for throat swelling, Negative for hives Cardiology Exam Const Appearance: cooperative, healthy appearing and no acute distress Nutritional Appearance: well nourished Orientation: alert, oriented x3 and oriented to person Head Head: normal to inspection, atraumatic and normocephalic Nose: external nose normal Face and Sinus: face symmetric Mouth: oral mucosae normal Eyes General: appearance normal, both eyes and all related structures Eyelids: eyelids normal Conjunctivae: conjunctivae normal Pupils: PERRL and normal by confrontation EOM: EOM intact bilaterally Neck Neck: normal visual inspection and full ROM Carotids: normal carotid upstroke Chest Chest inspection: normal inspection of the chest Auscultation: Bilateral: Clear to Auscultation Cardio Palpation: normal PMI Rate: regular rate Rhythm: regular rhythm Heart sounds: S1 normal and S2 normal GI GI: normal to inspection, no hepatosplenomegaly and bowel sounds present Neuro General: alert, oriented x3, awake, CN's II-XI intact bilaterally and moves all extremities Skin Skin: no rashes or lesions noted Extremities Pulses: Normal: Right Femoral Pulse, Left Femoral Pulse, Right Dorsalis Pedis Pulse, Left Dorsalis Pedis Pulse, Right Posterior Tibial Pulse, Left Posterior Tibial Pulse, Right Radial Pulse, Left Radial Pulse Lower Extremity Edema: None: Bilateral Psych Psychological: normal affect Assessment AND Plan 1. Cardiomyopathy in disease classified elsewhere I43 EF 10-15%, improved to 60% 09/2017 Plan 1. Cardia myopathy: Patient appear to have atrial fibrillation induced cardiomyopathy superimposed upon mild nonobstructive coronary artery disease the most of which was a 60% stenosis in his left circumflex territory. The patient has evidence of lateral T wave inversion with possible ischemia on baseline EKG today. I am pleased to see that his EF has normalized to 60% after DC cardioversion and with medical therapy. At this point I would recommend continuing baby aspirin, Coreg, Lasix, losartan and that he undergo a treadmill stress echocardiogram to evaluate his left circumflex territory. We were unable to do this before when he had his cardiomyopathy but now that his EF has normalized I believe it is reasonable to do so. If the patient has evidence of lateral ischemia, I have a low threshold for repeat catheterization and possible intervention. If his stress test is negative I recommend discontinuing his Eliquis. In addition given his known coronary disease I recommended starting him on Lipitor 20 mill grams p.o. nightly, and repeat lipid profile in 6 weeks time. His LDL should be less than 70. Orders Orders: 2. Atrial fibrillation with RVR I48.91 Plan 2. Atrial fibrillation with rapid ventricular response: Patient is maintained sinus rhythm and is aware when he goes in and out of atrial fibrillation. If his stress test is negative we will discontinue his Eliquis. We will obtain amiodarone lab studies of TSH, T4 and liver function test. Continue amiodarone and Coreg for now. 3. Return office in 6 months. This note was generated using a voice recognition system and there may be incorrect words, spelling or punctuation that were not noted when reviewing the office note prior to saving. Orders Orders: Plan Detail Other Orders Orders: Other Medications New: Changed: From: sildenafil (Viagra) administer 30 minutes to 4 mg PO ONCE 30 tabs 3RF before activity Refilled: Follow Up +6M (Alvarenga) Coding Level of Care Code Off vis,est,level 3 Diagnoses Cardiomyopathy in disease classified elsewhere I43 Atrial fibrillation with RVR I48.91 Coding Level of Care Code Off vis,est,level 3 Diagnoses Cardiomyopathy in disease classified elsewhere I43 Atrial fibrillation with RVR I48.91 Supplemental Info Supplemental Information Labs LDL Cholesterol 115 mg/dL (0-130) 05/26/17 HDL Cholesterol 27 mg/dL (40-) L 05/26/17 Triglycerides 119 mg/dL (-199) 05/26/17 VLDL Cholesterol 24 mg/dL (5-40) 05/26/17 Diagnostics Electrocardiogram 05/18/18 Echocardiogram 09/17/17 Transesophageal Echocardiogram 05/30/17 Cardiac Catheterization 05/28/17 Abdomen Ultrasound 05/27/17 Chest X-Ray 05/26/17 Venous Doppler Study 05/26/17 05/18/18 1520 <Electronically signed by José Miguel Alvarenga MD> Date José Miguel Alvarenga MD Cosigner Signature: Date (if applicable) CC: Young Emerson MD 12 LEAD EKG PERFORMED Observed: 05/18/2018 Status: F Source: [place] BY [facility] 3:04 PM [facility] REPOSITORY [facility] [address] [place] [address] 12 Lead EKG performed by [facility] 05/18/18 1503 MR#: [id number] Acct: [id number] Name: BEATRIEC AGUILAR Rep #: [id number] : 1950 67 From: José Miguel Alvarenga MD Attending Dr: José Miguel Alvarenga MD Status: DEP [facility] Ordering Dr: José Miguel Alvarenga MD Date: 05/18/18 [place] [facility] [place]: M C Admitted: [facility]/12 Lead EKG performed by [facility] Sinus Rhythm - Negative T-waves - Lateral ischemia. ABNORMAL 05/20/18 0846 <Electronically signed by José Miguel Alvarenga MD> Date José Miguel Alvarenga MD CC: Young Emerson MD Date Dictated: 05/18/18 1503 Date Transcribed: 05/18/18 150 [place]: DN Signed BASIC METABOLIC Collected: 12/24/2017 Status: F Source: NATALIO PROFILE (BMP) 2:20 PM [facility] REPOSITORY Order Comment: Order Date: 06/05/17 Order Info: 0667-1 - BMP Order Info: 06523-5 - MG TYPE CODE TESTS RESULT OUT OF RANGE REFERENCE UNITS LAB L501.0100 74-106 mg/dL High GLU 128 Result Comment: Fasting Glucose result greater than or equal to 126 mg/dL suggests DIABETES MELLITUS per A.D.A. criteria. Please note revised GLUCOSE reference range effective 2017. LAB L501.1000 7-18 mg/dL High BUN 22 LAB L501.1100 0.70-1.30 mg/dL High CREAT,SERUM 1.40 Result Comment: The validity of the calculated GFR AND GFRAA in patients over 70 years has not been determined. Clinical correlation is essential. LAB L501.1110 >60 mL/min Low EST GFR 54 Result Comment: Non- GFR Calc LAB L501.1115 >60 mL/min Normal EST GFR - AA 65 Result Comment: GFR Calc LAB L501.1300 10-20 RATIO Normal BUN/CRE 15.7 LAB L501.2200 8.5-10.1 mg/dL CA Normal 9.0 LAB L501.5300 136-145 mmol/L NA Normal 141 LAB L501.5600 3.5-5.1 mmol/L K Normal 4.1 LAB L501.5900 98-107 mmol/L CL Normal 106 LAB L501.6100 21.0-32.0 mmol/L Normal CO2 26.0 LAB L501.6200 5-15 Normal GAP 9 Performed By: #### L500.2500, L501.5200 #### [facility] [address] [place], [address] MAGNESIUM Collected: 12/24/2017 Status: F Source: [place]ALIO 2:20 PM [facility] REPOSITORY Order Comment: Order Date: 06/05/17 Order Info: 0667-1 - BMP Order Info: 02955-4 - MG TYPE CODE TESTS RESULT OUT OF RANGE REFERENCE UNITS LAB L501.5200 1.6-2.6 mg/dL Normal MG 2.3 Performed By: #### L500.2500, L501.5200 #### [facility] [address] [facility] [place], [place], [address] BASIC METABOLIC Collected: 09/24/2017 Status: F Source: [place]IO PROFILE (BMP) 3:34 PM [facility] REPOSITORY TYPE CODE TESTS RESULT OUT OF RANGE REFERENCE UNITS LAB L501.0100 74-106 mg/dL Normal GLU 94 Result Comment: Please note revised GLUCOSE reference range effective 2017. LAB L501.1000 7-18 mg/dL Normal BUN 17 LAB L501.1100 0.70-1.30 mg/dL High CREAT,SERUM 1.39 Result Comment: The validity of the calculated GFR AND GFRAA in patients over 70 years has not been determined. Clinical correlation is essential. LAB L501.1110 >60 mL/min Low EST GFR 54 Result Comment: Non- GFR Calc LAB L501.1115 >60 mL/min Normal EST GFR - AA 66 Result Comment: GFR Calc LAB L501.1300 10-20 RATIO Normal BUN/CRE 12.2 LAB L501.2200 8.5-10.1 mg/dL CA Normal 9.0 LAB L501.5300 136-145 mmol/L NA Normal 141 LAB L501.5600 3.5-5.1 mmol/L K Normal 4.9 LAB L501.5900 98-107 mmol/L CL Normal 107 LAB L501.6100 21.0-32.0 mmol/L Normal CO2 28.0 LAB L501.6200 5-15 Normal GAP 6 Performed By: #### L500.2500, L500.3400, L501.9310, L501.9536 #### [facility] [place], [address] LIVER PROFILE Collected: 09/24/2017 Status: F Source: [place] 3:34 PM [facility] REPOSITORY TYPE CODE TESTS RESULT OUT OF RANGE REFERENCE UNITS LAB L501.1500 6.4-8.2 g/dL Normal T PROT 7.5 LAB L501.1800 3.2-5.0 g/dL Normal ALB 3.8 LAB L501.1950 2.2-4.2 g/dL Normal GLOB 3.7 LAB L501.4100 15-37 U/L Normal AST 17 LAB L501.4305 45-117 U/L Normal ALK P 62 LAB L501.4405 16-61 U/L Normal ALT 29 LAB L501.4600 0.20-1.00 mg/dL Normal T BILI 0.30 LAB L501.4700 0.00-0.30 mg/dL Normal D BILI < 0.05 Performed By: #### L500.2500, L500.3400, L501.9310, L501.9520 #### [facility] [address] [place], [address] T4 TOTAL, THYROXIN Collected: 09/24/2017 Status: F Source: [place] 3:34 PM [facility] REPOSITORY TYPE CODE TESTS RESULT OUT OF RANGE REFERENCE UNITS LAB L501.9310 4.5-12.1 ug/dL T4 Normal THYROXIN 9.2 Performed By: #### L500.2500, L500.3400, L501.9310, L501.9520 #### [facility] [address] [place], [address] THYROID STIM HORMONE Collected: 09/24/2017 Status: F Source: [place] (TSH) 3:34 PM [facility] REPOSITORY TYPE CODE TESTS RESULT OUT OF RANGE REFERENCE UNITS LAB L501.9520 0.358-3.74 uIU/mL Normal TSH 3.32 Performed By: #### L500.2500, L500.3400, L501.9310, L501.9520 #### [facility] [address] [place], [address] CARDIOLOGY VISIT Observed: 09/24/2017 Status: F Source: [place] REPORT 3:30 PM [facility] REPOSITORY [facility] [address] [place] [address] OFFICE VISIT Date of Service: 09/24/17 MR#: [id number] Acct: [id number] Name: BEATRICE AGUILAR Rep #: [id number] : 1950 Provider: Dina Solorzano Age/Sex: 66/M [place] [facility] [place] Status: Signed HPI HPI Details: BEATRICE AGUILAR, is a 66 M who presents to the office today for a cardiovascular follow-up. Earlier this year he was hospitalized for atrial fibrillation with RVR. He was noted to have an ejection fraction of 15%. He did have a heart catheterization which did not demonstrate any significant coronary artery disease. He was successfully cardioverted and discharged home on Coreg, amiodarone and Eliquis. Prior to his hospitalization he noted that he was extremely fatigued, SOB and had edema. He was also dealing with the grief from the loss of his . From a cardiac standpoint, patient is doing well. He does not have any chest discomfort/heaviness/tightness. His exercise tolerance is stable for his age. He does not have any worsening symptoms of shortness of breath. He denies any PND. He does not have any orthopnea. He does not have any symptoms of congestive heart failure. He does not have any palpitations that he is aware of. He does not have any lightheadedness or dizziness. He does not have any near-syncope or syncope. He does not have any lower extremity edema. He does not have any symptoms of claudication. Intake Vital Signs09/24/17 Height 6 ft 1 in 09/24/17 Weight: 232 lb 09/24/17 Body Mass Index (BMI) 30.6 09/24/17 Blood Pressure 150/80 09/24/17 Blood Pressure Location Lt brachial Intake Visit Reasons: 3 M FU [employer] Required: No Accompanied by: None Is patient in pain?: No Allergies grass pollen Allergy (Verified 09/24/17 14:33) unknown wool Allergy (Verified 09/24/17 14:33) unknown Medications Bisacodyl [Dulcolax] 5 mg PO DAILY PRN #1 tab 05/30/17 [Rx Confirmed 09/24/17] Senna [Senokot] 2 tab PO DAILY #30 tab 05/30/17 [Rx Confirmed 09/24/17] amiodarone 200 mg tablet 200 mg PO DAILY #90 tab 06/20/17 [Rx Confirmed 09/24/17] apixaban 2.5 mg tablet 2.5 mg PO BID #180 tab 06/20/17 [Rx Confirmed 09/24/17] carvedilol 12.5 mg tablet 12.5 mg PO BID #180 tab 06/20/17 [Rx Confirmed 09/24/17] losartan 50 mg tablet 50 mg PO DAILY #90 tab 06/20/17 [Rx Confirmed 09/24/17] potassium chloride ER 20 mEq tablet,extended release(part/cryst) 20 meq PO DAILY #90 tab 06/20/17 [Rx Confirmed 09/24/17] furosemide 40 mg tablet 40 mg PO QDAY #180 tab 09/24/17 [Rx Confirmed 09/24/17] sildenafil 100 mg tablet 100 mg PO ONCE #10 tab 09/24/17 [Rx Confirmed 09/24/17] Ejection fraction %: 60 to 64 (60% per echo 09/17/2017 at [facility]) [facility] Medical History 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) Internal hemorrhoid (Chronic) Diverticulosis (Chronic) CHF (congestive heart failure) (Chronic) Atrial fibrillation with RVR (Chronic) Surgical History History of vasectomy (Chronic) Family History Father Heart disease Social History Smoking Status: Former smoker alcohol intake: current alcohol intake frequency: holidays/special occasions only Alcohol type: beer substance use type: does not use ROS Const Const: Negative for weakness, fatigue, fever(s) or headache(s) Eyes Eyes: Negative for blind spots, loss of peripheral vision or transient loss of vision ENT ENT: Negative for headache(s), dizziness, tinnitus or Nosebleed/epistaxis Cardio Chest Pain: No Palpitations: No Edema: None Muscle aches with walking: None Resp Respiratory: Negative for SOB with activity, SOB at rest, SOB orthopnea\SOB lying down or Cough GI GI: Negative nausea, vomiting, heartburn or vomiting blood/hematemesis : Negative for hematuria Musc Musc: Negative for muscle aches/ myalgia Neuro Neuro: Negative for weakness, headache(s), dizziness, near syncope, syncope, lightheadedness or orthostatic symptoms Terrance Hematologic/Lymphatic: Negative for easy bleeding Endo Endo: Negative for fatigue Cardiology Exam Const Appearance: cooperative, no acute distress and well developed Orientation: alert, awake and oriented x3 Head Head: normocephalic and atraumatic Mouth: moist mucous membranes Eyes General: appearance normal, both eyes and all related structures Conjunctivae: conjunctivae normal Pupils: PERRL EOM: EOM intact bilaterally Neck Neck: normal visual inspection, no lymphadenopathy and no JVD Carotids: Negative bruit Neck Mass: Negative Neck mass Chest Chest inspection: normal inspection of the chest and symmetric chest movement Auscultation: Bilateral: Clear to Auscultation Cardio Palpation: normal PMI Rate: regular rate Rhythm: regular rhythm Heart sounds: S1 normal and S2 normal; negative rub, gallop or murmur GI GI: normal to inspection, soft, no hepatosplenomegaly and bowel sounds present; negative tender Neuro General: alert, awake, oriented x3, CN's II-XI intact bilaterally and moves all extremities Extremities Pulses: Normal: Right Posterior Tibial Pulse, Left Posterior Tibial Pulse, Right Radial Pulse, Left Radial Pulse Lower Extremity Edema: None: Bilateral Psych Psychological: normal affect Supplemental Info Echocardiogram in September 2017 demonstrated The estimated ejection fraction is 60 %. Stage 1 diastolic dysfunction. Unable to estimate RV systolic pressure due to inadequate jet, pulmonary artery pressure probably normal. Compared to echo report dated 05/27/2017, LV Function has normalized and RVSP is now unable to be acquired, suggesting normalization of RVSP as well. Assessment AND Plan 1. Cardiomyopathy in disease classified elsewhere I43 EF 10-15% Plan Ejection fraction has improved to 60%. He is not symptomatic. We will have him decrease his Lasix to once a day. We will have him obtain a BMP today to evaluate his need for potassium. May consider stopping this altogether. Ideally would like to stop his diuretics completely. We will continue to monitor by history, exam and echocardiograms as deemed appropriate. He will continue with his Coreg and losartan. Orders Orders: 2. Atrial fibrillation with RVR I48.91 Plan Patient has not had any symptomatic recurrence. He will continue with his amiodarone and his beta-foreign. He is also anticoagulated with a factor Xa inhibitor. Will obtain TSH and hepatic's as he is on amiodarone. Will consider stopping this if he has not been symptomatic after a year. Orders Orders: Plan Detail Other Orders Orders: Other Medications New: Changed: Additional Comments Patient is concerned about erectile dysfunction. We will give him a prescription for Viagra. Thank you for allowing us to participate in patient's plan of care, if you have any questions please do not hesitate to call. This note was generated using a voice recognition system and there may be incorrect words, spelling or punctuation errors that were not noted when reviewing the office note prior to saving. Follow Up 6 Months (DJN) Coding Level of Care Code Off vis,est,level 3 Diagnoses Cardiomyopathy in disease classified elsewhere I43 Atrial fibrillation with RVR I48.91 Coding Level of Care Code Off vis,est,level 3 Diagnoses Cardiomyopathy in disease classified elsewhere I43 Atrial fibrillation with RVR I48.91 09/24/17 1530 <Electronically signed by Dina COY> Date Dina COY Cosigner Signature: Date (if applicable) CC: Young Emerson MD ECHOCARDIOGRAM COMPLETE Observed: 09/17/2017 Status: F Source: [place] 11:48 AM [facility] REPOSITORY [facility] Cardiovascular Services [address] [place] [id number] Echo Complete 09/17/17 1045 MR#: [id number] Acct: [id number] Name: BEATRICE AGUILAR Rep #: [id number] : 1950 66 From: José Miguel Alvarenga MD Attending Dr: Dina Solorzano Status: REG CLI Ordering Dr: Dina Solorzano Date: 09/17/17 Location: [facility] Sex: M C Admitted: Reason For Study: CHF Procedure This was a 2D Doppler, Color Flow transthoracic echocardiogram. Exam performed in department. Left Ventricle Normal size and thickness. The estimated ejection fraction is 60 %. Stage 1 diastolic dysfunction. No regional wall motion abnormalities noted. Right Ventricle Normal size and thickness. Normal systolic function. Atria Normal left atrium. Normal right atrium. Normal atrial septum. Mitral Valve The mitral valve is structurally normal. No prolapse or stenosis seen. Tricuspid Valve Normal tricuspid valve. Unable to estimate RV systolic pressure due to inadequate jet, pulmonary artery pressure probably normal. Aortic Valve Normal aortic valve. Trisinus/trileaflet aortic valve. Pulmonic Valve Normal pulmonic valve. Great Vessels Normal aortic root. Normal arch. Normal inferior vena cava. Inferior vena cava collapse with sniff. Pericardium/Pleural No pericardial effusion. MMode/2D Measurements AND Calculations LVIDd: 4.8 cm IVSd: 1.3 cm Ao root diam: 3.8 cm LVIDs: 3.2 cm LVPWd: 1.1 cm LA dimension: 4.3 cm RVDd: 3.7 cm FS: 33.3 % LAV(MOD-bp): 54.3 ml LVAd ap4: 33.5 cm2 SV(MOD-sp4): 69.6 ml LAV(MOD-bp) Indexed: 27.7 ml/m2 EDV(MOD-sp4): 114.5 ml LAV(MOD-sp2): 69.1 ml EDV(sp4-el): 116.8 ml LAV(MOD-sp4): 43.7 ml LVAs ap4: 19.2 cm2 ESV(MOD-sp4): 44.9 ml ESV(sp4-el): 42.7 ml EF(MOD-sp4): 60.8 % EF(sp4-el): 63.4 % SV(sp4-el): 74.1 ml LA A4 area: 17.2 cm2 RA A4 area: 19.3 cm2 Time Measurements MV dec time: 0.21 sec Doppler Measurements AND Calculations MV E max ben: 59.3 cm/sec Lat Peak E' Ben: 7.8 cm/sec Med Peak E' Ben: 6.0 cm/sec MV A max ben: 80.3 cm/sec E/E' lat: 7.6 E/E' med: 9.9 MV E/A: 0.74 MV V2 max: 83.5 cm/sec MV P1/2t max ben: 62.8 cm/sec Ao V2 max: 134.2 cm/sec MV max P.8 mmHg MV P1/2t: 88.8 msec Ao max P.2 mmHg MV V2 mean: 42.0 cm/sec MV dec slope: 207.1 cm/sec2 Ao V2 mean: 91.5 cm/sec MV mean P.84 mmHg MVA(P1/2t): 2.5 cm2 Ao mean P.7 mmHg MV V2 VTI: 22.6 cm Ao V2 VTI: 26.7 cm LV V1 max: 97.9 cm/sec PA V2 max: 122.3 cm/sec LV V1 max P.8 mmHg LV V1 mean P.8 mmHg LV V1 mean: 61.9 cm/sec LV V1 VTI: 20.6 cm Interpretation Summary The estimated ejection fraction is 60 %. Stage 1 diastolic dysfunction. Unable to estimate RV systolic pressure due to inadequate jet, pulmonary artery pressure probably normal. Compared to echo report dated 05/27/2017, LV Function has normalized and RVSP is now unable to be acquired, suggesting normalization of RVSP as well. Ordering Physician: Dina Solorzano Referring Physician: Dina Solorzano Performed By: Hal Garcia RCS 09/17/17 1147 Date José Miguel Alvarenga MD CC: Young Emerson MD; Dina Solorzano Date Dictated: 09/17/17 1045 Date Transcribed: 09/17/17 114 [place]: Signed BASIC METABOLIC Collected: 06/27/2017 Status: F Source: [place] PROFILE (BMP) 12:06 PM [facility] REPOSITORY TYPE CODE TESTS RESULT OUT OF RANGE REFERENCE UNITS LAB L501.0100 74-106 mg/dL Normal GLU 83 Result Comment: Please note revised GLUCOSE reference range effective 2017. LAB L501.1000 7-18 mg/dL High BUN 25 LAB L501.1100 0.70-1.30 mg/dL Normal CREAT,SERUM 1.22 Result Comment: The validity of the calculated GFR AND GFRAA in patients over 70 years has not been determined. Clinical correlation is essential. LAB L501.1110 >60 mL/min Normal EST GFR 63 Result Comment: Non- GFR Calc LAB L501.1115 >60 mL/min Normal EST GFR - AA 77 Result Comment: GFR Calc LAB L501.1300 10-20 RATIO High BUN/CRE 20.5 LAB L501.2200 8.5-10.1 mg/dL CA Normal 9.1 LAB L501.5300 136-145 mmol/L NA Normal 141 LAB L501.5600 3.5-5.1 mmol/L K Normal 4.2 LAB L501.5900 98-107 mmol/L CL Normal 106 LAB L501.6100 21.0-32.0 mmol/L Normal CO2 28.0 LAB L501.6200 5-15 Normal GAP 7 Performed By: #### L500.2500 #### [facility] [address] [place], [address] CARDIOLOGY VISIT Observed: 06/20/2017 Status: F Source: [place] REPORT 5:10 PM [facility] REPOSITORY [facility] [address] [place] [address] OFFICE VISIT Date of Service: 06/20/17 MR#: [id number] Acct: [id number] Name: BEATRICE AGUILAR Rep #: [id number] : 1950 Provider: Dina Solorzano Age/Sex: 66/M [place] [facility] [place] Status: Signed HPI HPI Details: BEATRICE AGUILAR, is a 66 M who presents to the office today for a hospital follow-up. Patient was hospitalized last month for shortness of breath that have been ongoing for two months. Upon presentation he was noted to be in atrial fibrillation with RVR. Echocardiogram done demonstrated an ejection fraction of 15%. He did undergo a heart catheterization which did not demonstrate any significant coronary artery disease. 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 Patient did undergo a successful cardioversion. He was discharged home on Coreg, amiodarone and Eliquis. Prior to his hospitalization he noted that he was extremely fatigued, SOB and had edema. He was also dealing with the grief from the loss of his . 5 years ago he was evaluated in [facility] for something similar. He sts that he was diagnosed with Atrial fib and cardiomyopathy. He sts that he was followed by cardiology in [place]. Since being home from the hospital he is doing better. He does not have chest pain/heaviness. He does not have any symptoms of SOB that would not be expected. He does not have orthpnea. Prior to his hospital stay he could not lay flat, he slept sitting up. He does not have any near syncope/syncope. He does not have any lower extremity edema. His energy level has improved. Intake Vital Signs06/20/17 Height 6 ft 1 in 06/20/17 Weight: 216 lb 06/20/17 Body Mass Index (BMI) 28.5 06/20/17 Blood Pressure 130/80 06/20/17 Pulse Rate 60 Intake Visit Reasons: 4 wk s/p PCU Is patient in pain?: No Allergies No Known Allergies Allergy (Verified 06/20/17 13:29) Medications Bisacodyl [Dulcolax] 5 mg PO DAILY PRN #1 tab 05/30/17 [Rx Confirmed 06/20/17] Senna [Senokot] 2 tab PO DAILY #30 tab 05/30/17 [Rx Confirmed 06/20/17] amiodarone 200 mg tablet 200 mg PO DAILY #90 tab 06/20/17 [Rx Confirmed 06/20/17] apixaban 2.5 mg tablet 2.5 mg PO BID #180 tab 06/20/17 [Rx Confirmed 06/20/17] carvedilol 12.5 mg tablet 12.5 mg PO BID #180 tab 06/20/17 [Rx Confirmed 06/20/17] furosemide 40 mg tablet 40 mg PO BID #180 tab 06/20/17 [Rx Confirmed 06/20/17] losartan 50 mg tablet 50 mg PO DAILY #90 tab 06/20/17 [Rx Confirmed 06/20/17] potassium chloride ER 20 mEq tablet,extended release(part/cryst) 20 meq PO DAILY #90 tab 06/20/17 [Rx Confirmed 06/20/17] Ejection fraction %: 10 to 14 PFSH Medical History 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) Internal hemorrhoid (Chronic) Diverticulosis (Chronic) CHF (congestive heart failure) (Chronic) Atrial fibrillation with RVR (Chronic) Family History Father Heart disease Social History Smoking Status: Former smoker alcohol intake: current alcohol intake frequency: holidays/special occasions only Alcohol type: beer ROS Const Const: Negative for weakness, fatigue, fever(s) or headache(s) Eyes Eyes: Negative for blind spots, loss of peripheral vision or transient loss of vision ENT ENT: Negative for headache(s), Negative for dizziness, Negative for tinnitus, Negative for Nosebleed/epistaxis Cardio Chest Pain: No Palpitations: Positive for No Edema: None Muscle aches with walking: None Resp Respiratory: Negative for SOB with activity, SOB at rest or SOB orthopnea\SOB lying down GI GI: Negative nausea, vomiting, heartburn or vomiting blood/hematemesis : Negative for hematuria Musc Musc: Negative for muscle aches/ myalgia Neuro Neuro: Negative for weakness, Negative for headache(s), Negative for dizziness, Negative for near syncope, Negative for syncope, Negative for lightheadedness Terrance Hematologic/Lymphatic: Negative for easy bleeding Endo Endo: Negative for fatigue Cardiology Exam Const Appearance: cooperative, no acute distress and well developed Orientation: alert, awake and oriented x3 Head Head: normocephalic and atraumatic Mouth: moist mucous membranes Eyes General: appearance normal, both eyes and all related structures Conjunctivae: conjunctivae normal Pupils: PERRL EOM: EOM intact bilaterally Neck Neck: normal visual inspection, no lymphadenopathy and no JVD Carotids: Negative bruit Neck Mass: Negative Neck mass Chest Chest inspection: normal inspection of the chest and symmetric chest movement Auscultation: Bilateral: Clear to Auscultation Cardio Palpation: normal PMI Rate: regular rate Rhythm: regular rhythm Heart sounds: S1 normal and S2 normal; negative rub, gallop or murmur GI GI: normal to inspection, soft, no hepatosplenomegaly and bowel sounds present; negative tender Neuro General: alert, awake, oriented x3, CN's II-XI intact bilaterally and moves all extremities Extremities Pulses: Normal: Right Posterior Tibial Pulse, Left Posterior Tibial Pulse, Right Radial Pulse, Left Radial Pulse Lower Extremity Edema: None: Bilateral Psych Psychological: normal affect Supplemental Info Echocardiogram 2018 demonstrated: Severely dilated left ventricle. The estimated ejection fraction is 10-15 %. Basal anteroseptal: Akinetic. Mid-Anterior : Severely Hypokinetic. Mid-Inferior: Severely Hypokinetic. There are regional wall motion abnormalities as specified. Moderately dilated right ventricle. The left atrium is severely enlarged. The right atrium is severely enlarged. Trivial tricuspid valve insufficiency. Right ventricular systolic pressure estimated to be 42 mmHg. Mild pulmonary hypertension Heart catheterization 2018 demonstrated: Right Heart pressures - elevated LEFT MAIN: Angiographically normal LEFT ANTERIOR DECENDING ARTERY: Mild luminal irregularities less than 30% CIRCUMFLEX ARTERY: PROX CIRC: 60 % Stenosis RIGHT CORONARY ARTERY: Mild luminal irregularities less than 30% RT PDA: Proximal - Angiographically normal, Assessment AND Plan 1. Atrial fibrillation with RVR I48.91 Plan - ZBIGNIEW Szymanski EKG today demonstrates sinus rhythm. Patient will continue with his current dose of Coreg, he will also continue with his amiodarone. If he remains on amiodarone will need to continue to monitor his thyroid, hepatic and pulmonary function tests routinely. He will continue with his anticoagulation as he does have a chads score of 2. He is anticoagulated with a factor Xa inhibitor. Orders Orders: 2. Cardiomyopathy in disease classified elsewhere I43 EF 10-15% Plan - ZBIGNIEW Szymanski Patient does have a decreased ejection fraction of 10-15%. For now he will continue with his current aggressive medical management. Will not make any adjustments in his medication at this time. He is currently on a beta-foreign, arm and diuretic. He is on a high dose of Lasix. We will have him obtain a BMP today. If we can decrease this we will. Would like to repeat his echocardiogram in 3 months. If his ejection fraction has not improved we will need to consider prophylactic ICD placement. Orders Orders: 3. Essential hypertension I10 Plan - ZBIGNIEW Szymanski Adequately controlled on current medications. For now will not make any adjustments. Plan Detail Other Orders Orders: Other Medications Changed: Refilled: Additional Comments - ZBIGNIEW Szymanski The above patient was discussed with Dr. Barth in Dr. Mancia absence, he agrees with plan of care. Thank you for allowing us to participate in patient's plan of care, if you have any questions please do not hesitate to call. This note was generated using a voice recognition system and there may be incorrect words, spelling or punctuation errors that were not noted when reviewing the office note prior to saving. Follow Up 3 Months (DJN/MMM ) Coding Level of Care Code Off vis,est,level 4 Diagnoses Atrial fibrillation with RVR I48.91 Cardiomyopathy in disease classified elsewhere I43 Essential hypertension I10 Hypertension type: essential hypertension Coding Level of Care Code Off vis,est,level 4 Diagnoses Atrial fibrillation with RVR I48.91 Cardiomyopathy in disease classified elsewhere I43 Essential hypertension I10 Hypertension type: essential hypertension 06/20/17 1414 <Electronically signed by Dina COY> Date Dina COY 06/20/17 1710<Electronically signed by Ra Barth MD> Cosigner Signature: Date (if applicable) Ra Barth MD CC: Young Emerson MD 12 LEAD EKG PERFORMED Observed: 06/20/2017 Status: F Source: [place] BY [facility] 1:45 PM [facility] REPOSITORY [facility] [address] [place] [address] 12 Lead EKG performed by [facility] 06/20/17 1344 MR#: [id number] Acct: [id number] Name: BEATRICE AGUILAR Rep #: [id number] : 1950 66 From: Dina COY Attending Dr: Dina Solorzano Status: DEP AMB Ordering Dr: Dina Solorzano Date: 06/20/17 [place] [facility] Sex: M C Admitted: [facility]/12 Lead EKG performed by [facility] ECG Report Interpretation Sinus Rhythm Nonspecific ST/T wave abnormalityElectronically signed on 06/20/2017 at 17:24 by Ra Barth 06/20/17 1727 Date Dina COY CC: Young Emerson MD Date Dictated: 06/20/17 1344 Date Transcribed: 06/20/171343 [place]: MMM Signed 12 LEAD ELECTROCARDIOGRAM Observed: 06/10/2017 Status: F Source: [place] 8:53 AM [facility] Cardiovascular Services [address] [place] [address] 12 Lead EKG 05/28/17 0630 MR#: [id number] Acct: [id number] Name: BEATRICE AGUILAR Rep #: [id number] : 1950 66 From: Miguel Lowery MD Attending Dr: Young Heredia DO Status: DIS IN Ordering Dr: José Miguel Alvarenga MD Date: 05/28/17 Location: [facility] Sex: M C Admitted: 05/26/17 Test Reason : AM Blood Pressure : / mmHG Vent. Rate : 113 BPM Atrial Rate : 113 BPM P-R Int : 192 ms QRS Dur : 094 ms QT Int : 346 ms P-R-T Axes : 001 048 151 degrees QTc Int : [address] AND T wave abnormality, consider inferolateral ischemia Abnormal ECG When compared with ECG of 27-MAY-2017 11:38, MANUAL COMPARISON REQUIRED, DATA IS UNCONFIRMED Confirmed by MIGUEL LOWERY MD ([id number]), make up editor BRENNA MIMS (56) on 06/10/2017 8:52:52 AM Referred By: DAWN Confirmed By:MIGUEL LOWERY MD 06/10/17 0852 Date Miguel Lowery MD CC: José Miguel Alvarenga MD; Young Emerson MD Signed 12 LEAD ELECTROCARDIOGRAM Observed: 06/05/2017 Status: F Source: [place] 12:09 PM [facility] REPOSITORY [facility] Cardiovascular Services [address] [place] [address] 12 Lead EKG 05/30/17 1244 MR#: [id number] Acct: [id number] Name: BEATRICE AGUILAR Rep #: [id number] : 1950 66 From: José Miguel Alvarenga MD Attending Dr: Young Heredia DO Status: DIS IN Ordering Dr: José Miguel Alvarenga MD Date: 05/30/17 Location: [facility] Sex: M C Admitted: 05/26/17 Test Reason : S Blood Pressure : / mmHG Vent. Rate : 085 BPM Atrial Rate : 085 BPM P-R Int : 176 ms QRS Dur : 094 ms QT Int : 384 ms P-R-T Axes : 061 038 130 degrees QTc Int : 456 ms Poor data quality, interpretation may be adversely affected Normal sinus rhythm T wave abnormality, consider lateral ischemia Abnormal ECG When compared with ECG of 30-MAY-2017 05:08, MANUAL COMPARISON REQUIRED, DATA IS UNCONFIRMED Confirmed by JOSÉ MIGUEL ALVARENGA ([id number]), make up editor BRENNA MIMS (56) on 06/05/2017 12:08:28 PM Referred By: DR ALVARENGA Confirmed By:JOSÉ MIGUEL ALVARENGA 06/05/17 1208 Date José Miguel Alvarenga MD CC: Young Emerson MD Signed CBC W/DIFF, AUTOMATED Collected: 05/26/2017 Status: F Source: [place] 1:55 PM [facility] REPOSITORY TYPE CODE TESTS RESULT OUT OF RANGE REFERENCE UNITS LAB L100.1000 4.4-11.0 K/mm3 High WBC 13.2 LAB L100.1200 4.6-6.2 M/mm3 Normal RBC 4.78 LAB L100.1300 13.0-16.5 g/dl Normal HGB 14.2 LAB L100.1400 40-54 % Normal HCT 44.1 LAB L100.1500 80-94 fL Normal MCV 92.3 LAB L100.1600 27.0-32.0 pg Normal MCH 29.7 LAB L100.1700 32-36 g/gl Normal MCHC 32.2 LAB L100.1810 11.6-14.6 % Normal RDW CV 14.1 LAB L100.1820 35.1-43.9 fl High RDW SD 46.1 LAB L100.1900 150-450 K/mm3 Normal PLT 210 LAB L100.2000 6.2-12.0 fl Normal MPV 10.7 LAB L100.2100 47-70 % High NEUT% 73.8 LAB L100.2200 19-41 % Low LY% 16.4 LAB L100.2300 0-10 % Normal MONO% 7.5 LAB L100.2400 0-5 % Normal EO% 1.3 LAB L100.2500 0-1 % Normal BASO% 0.8 LAB L100.2550 0.0-0.9 % Normal IM GRAN % 0.200 Result Comment: IG% - Immature Granulocytes (promyelocytes, myelocytes and metamyelocytes) > 1% indicates that a LEFT SHIFT is Present. LAB L100.2620 2.0-7.7 X10 3/uL High Absolute Neut 9.7 LAB L100.2720 0.83-4.51 X10 3/ul Normal Absolute Lymph 2.17 Performed By: #### L100.0100 #### [facility] [address] [place] [place], [address] BASIC METABOLIC Collected: 05/26/2017 Status: F Source: [place] PROFILE (BMP) 1:55 PM [facility] REPOSITORY Order Comment: 'TROP' Serial specimen #1, #2, #3, or #4: 1 TYPE CODE TESTS RESULT OUT OF RANGE REFERENCE UNITS LAB L501.0100 70-110 mg/dL Normal GLU 110 Result Comment: Fasting Glucose result from 110 to <126 mg/dL suggests IMPAIRED HOMEOSTASIS per A.D.A. criteria. LAB L501.1000 7-18 mg/dL High BUN 19 LAB L501.1100 0.70-1.30 mg/dL High CREAT,SERUM 1.32 Result Comment: The validity of the calculated GFR AND GFRAA in patients over 70 years has not been determined. Clinical correlation is essential. LAB L501.1110 >60 mL/min Low EST GFR 58 Result Comment: Non- GFR Calc LAB L501.1115 >60 mL/min Normal EST GFR - AA 70 Result Comment: GFR Calc LAB L501.1255 ml/min Normal Estimated CRCL 63.05 LAB L501.1300 10-20 RATIO Normal BUN/CRE 14.4 LAB L501.2200 8.5-10 mg/dL Normal .1 CA 8.9 LAB L501.5300 136-14 mmol/L Normal 5 NA 141 LAB L501.5600 3.5-5. mmol/L Normal 1 K 4.3 LAB L501.5900 98-107 mmol/L High CL 108 LAB L501.6100 21.0-3 mmol/L Normal 2.0 CO2 22.0 LAB L501.6200 5-15 Normal GAP 11 Performed By: #### L500.2500, L500.3400, L501.2450, L501.4010 #### [facility] [address] [place] [place], [address] LIVER PROFILE Collected: 05/26/2017 Status: F Source: [place] 1:55 PM [facility] REPOSITORY Order Comment: 'TROP' Serial specimen #1, #2, #3, or #4: 1 TYPE CODE TESTS RESULT OUT OF RANGE REFERENCE UNITS LAB L501.1500 6.4-8.2 g/dL Normal T PROT 7.3 LAB L501.1800 3.4-5.0 g/dL Normal ALB 3.8 Result Comment: Please note revised Albumin AND Globulin reference range effective 2017. LAB L501.1950 2.2-4.2 g/dL Normal GLOB 3.5 LAB L501.4100 15-37 U/L Normal AST 25 LAB L501.4305 45-117 U/L Normal ALK P 96 LAB L501.4405 12-78 U/L Normal ALT 55 LAB L501.4600 0.20-1.00 mg/dL Normal T BILI 0.90 LAB L501.4700 0.00-0.30 mg/dL Normal D BILI 0.30 Performed By: #### L500.2500, L500.3400, L501.2450, L501.4010 #### [facility] [address] [facility] [place], [place], [address] LIPASE Collected: 05/26/2017 Status: F Source: [place] 1:55 PM [facility] REPOSITORY Order Comment: 'TROP' Serial specimen #1, #2, #3, or #4: 1 TYPE CODE TESTS RESULT OUT OF RANGE REFERENCE UNITS LAB L501.2450 73-393 U/L Normal LIPASE 116 Performed By: #### L500.2500, L500.3400, L501.2450, L501.4010 #### [facility] [address] [facility] [place], [place], [address] TROPONIN-I Collected: 05/26/2017 Status: F Source: [place] 1:55 PM [facility] REPOSITORY Order Comment: 'TROP' Serial specimen #1, #2, #3, or #4: 1 TYPE CODE TESTS RESULT OUT OF RANGE REFERENCE UNITS LAB L501.4010 <0.06 ng/mL Normal 0.03 TROPONIN-I Result Comment: TROPONIN-I EXPECTED VALUES <0.05 NEGATIVE 0.06 - 0.59 AT RISK OF [place] > OR = 0.60 SUGGEST [place] Performed By: #### L500.2500, L500.3400, L501.2450, L501.4010 #### [facility] [address] [place], [address] D-DIMER QUANTITATIVE Collected: 05/26/2017 Status: F Source: [place] (DVT/PE) 1:55 PM [facility] REPOSITORY TYPE CODE TESTS RESULT OUT OF RANGE REFERENCE UNITS LAB L300.8000 0.27-0.49 FEU/ug/m High alert D-DIMER 0.84 QUANT Result Comment: D-Dimer ELEVATED (>0.49): Additional studies and clinical assessments are indicated to conclude diagnosis of: Deep Vein Thrombosis (DVT) or Pulmonary Embolism (PE) CRITICAL VALUE VERIFIED. CALLED TO CHERELLE MARKHAM 05/26/17 1425 Lincoln Mora. RESULTS READ BACK BY SAME. Performed By: #### L300.8000 #### [facility] [address] [place], [address] ALLERGIES ALLERGIES DATE TYPE / CODE NAME / CODE REACTION SEVERITY SOURCE 05/12/2018 Drug grass Unknown Unknown [place] [facility] Allergy/4160 pollen/[id number] [facility](SNOMED 6084(RXNORM) Repository CT) 05/12/2018 Drug wool/[id number] Unknown Unknown [place] [facility] Allergy/4160 02(RXNORM) Hospital [facility](SNOMED Repository CT) 06/20/2017 Drug No Known Unknown [place] [facility] Allergy/4160 Allergies/F00 Hospital [facility](SNOMED 0731154(RXNOR Repository CT) M) ENCOUNTERS ENCOUNTERS ADMIT/DISCHARGE ACCOUNT ADMITTING ENCOUNTER LOCATION SOURCE NUMBER CLASS 06/10/2018 [id number] Ambulatory [place] 5 [facility] ing:CLSP Repository 05/29/2018/ [id number] Ambulatory BMSBuilding:B [place] 9 1 [facility] Repository 05/29/2018 [id number] Ambulatory BMSBuilding:B [place] 6 [facility] Repository 05/29/2018 [id number] Ambulatory [place] 1 [facility] ing:CVS Repository 05/26/2018 [id number] Ambulatory [place] 5 [facility] ing:PSN Repository 05/18/2018 [id number] Ambulatory [place] 8 [facility] ing:LAB Repository 05/18/2018/ [id number] Ambulatory BMSBuilding:B [place] 9 2 [facility] Repository 12/24/2017 [id number] Ambulatory [place] 1 [facility] ing:MFPLAB Repository 09/24/2017 [id number] Ambulatory [place] 3 [facility] ing:POLAB3 Repository 09/24/2017/ [id number] Ambulatory BMSBuilding:B [place] 8 3 [facility] Repository 09/17/2017 [id number] Ambulatory [place] 9 [facility] ing:CVS Repository 09/17/2017 [id number] Ambulatory BMSBuilding:W [place] 7 [facility] Repository 06/27/2017 [id number] Ambulatory [place] 7 [facility] ing:MTLAB Repository 06/20/2017/ [id number] Ambulatory BMSBuilding:B [place] 8 6 [facility] Repository 05/26/2017/ [id number] [facility], Inpatient [place] 8 4 [facility] ing:PCURoom: Repository [id number]: 1 PAYERS PAYERS ENCOUNTER GUARANTOR PAYER SUBSCRIBER SOURCE 06/10/2018 BEATRICE A Primary BEATRICE A [place] [id number] SR Insurance:MEDICARE NEITZELTDOB: [address] PART A [facility] [id number] [facility] [address]Xrp: (419) Number: Repository [phone] HP [id number] Date:2018-05-29 06/10/2018 Secondary BEATRICE A [place] Insurance:WPS NEITZELTDOB: [facility] [id number] [facility] Number: Repository [id number] Date:3162-66-55DA SELAM 78YAJAIRA TOVAR [address]SK: 06/10/2018 Tertiary NOT GIVENUNK [place] Insurance:SELF PAY [facility] Number: Effective Repository Date:2018-05-29 05/29/2018 BEATRICE A Primary BEATRICE A [place] [id number] SR Insurance:MEDICARE NEITZELTDOB: Community [address] [facility], [place] PART A [facility] [id number] Hospital [address]Qrg: (419) Number: Repository [phone] () [id number] Date:2018-05-29 05/29/2018 Secondary BEATRICE A [place] Insurance:[facility] NEITZELTDOB: [facility] [place], [place] [id number] Hospital Number: Repository [id number] Date:0471-59-18GA [facility] [address] [place] [address]MK: 05/29/2018 Tertiary NOT GIVENUNK [place] Insurance:SELF PAY [facility] Number: Effective Repository Date:2018-05-29 05/29/2018 BEATRICE A Primary BEATRICE A [place] [id number] SR Insurance:MEDICARE NEITZELTDOB: Community [address] [place] [address], [place] PART A [facility] [id number] Hospital [address]Wud: (419) Number: Repository [phone] () [id number] Date:2018-05-19 05/29/2018 Secondary BEATRICE A [place] Insurance:[facility] NEITZELTDOB: [facility] [place], [place] [id number] Hospital Number: Repository [id number] Date:3976-51-60GO [facility] [address], [place] [address]HN: 05/29/2018 Tertiary NOT GIVENUNK [place] Insurance:SELF PAY [facility] Number: Effective Repository Date:2018-05-29 05/29/2018 BEATRICE A Primary BEATRICE A [place] [id number] SR Insurance:MEDICARE NEITZELTDOB: Community [address] [facility], [place] PART A [facility] [id number] Hospital [address]Mkt: (419) Number: Repository [phone] () [id number] Date:2018-05-19 05/29/2018 Secondary BEATRICE A [place] Insurance:[facility] NEITZELTDOB: [facility] [place], [place] [id number] Hospital Number: Repository [id number] Date:4188-32-32[address], [place] [address]OD: 05/29/2018 Tertiary NOT GIVENUNK [place] Insurance:SELF PAY [facility] Number: Effective Repository Date:2018-05-19 05/26/2018 BEATRICE A Primary BEATRICE A [place] [id number] SR Insurance:MEDICARE NEITZELTDOB: Community [address] [place], [place] PART A [facility] [id number] Hospital [address]Nff: (419) Number: Repository [phone] () [id number] Date:2018-05-18 05/26/2018 Secondary BEARTICE A [place] Insurance:WPS NEITZELTDOB: [facility] [place], [place] [id number] Hospital Number: Repository [id number] Date:7954-51-13[address], [place] [address]WS: 05/26/2018 Tertiary NOT GIVENUNK [place] Insurance:SELF PAY [facility] Number: Effective Repository Date:2018-05-18 05/18/2018 BEATRICE A Primary BEATRICE A [place] [id number] SR Insurance:MEDICARE NEITZELTDOB: [address], [place] PART A [facility] [id number] Hospital [address]Oqg: (419) Number: Repository [phone] () [id number] Date:2018-05-18 05/18/2018 Secondary BEATRICE A [place] Insurance:WPS NEITZELTDOB: [facility] [place], [place] [id number] Hospital Number: Repository [id number] Date:3308-93-55[address], [place] [address]OD: 05/18/2018 Tertiary NOT GIVENUNK [place] Insurance:SELF PAY [facility] Number: Effective Repository Date:2018-05-18 05/18/2018 BEATRICE A Primary BEATRICE A [place] [id number] Insurance:MEDICARE NEITZELTDOB: Community [address] PART [address] [facility] [id number] [place] Number: Repository [id number]: 419 [id number] [phone] () Date:2017-09-24 05/18/2018 Secondary BEATRICE A [place] Insurance:WPS NEITZELTDOB: [facility] [place], [place] [id number] Hospital Number: Repository [id number] Date:8133-47-78[address] [address]BX: 05/18/2018 Tertiary NOT GIVENUNK [place] Insurance:SELF PAY [facility] Number: Effective Repository Date:2018-05-15 12/24/2017 BEATRICE A Primary BEATRICE A [place] [id number] Insurance:MEDICARE NEITZELTDOB: Community [address] PART [address] [facility] [id number] [place] Number[facility] Repository [phone]: [phone] [id number] [phone] () Date:2017-12-24 12/24/2017 Secondary BEATRICE A [place] Insurance:WPS NEITZELTDOB: [facility] [place], [place] [id number] Hospital Number: Repository [id number] Date:8829-41-05[address] [address]MG: 12/24/2017 Tertiary NOT GIVENUNK [place] Insurance:SELF PAY [facility] Number: Effective Repository Date:2017-12-24 09/24/2017 BEATRICE A Primary BEATRICE A [place] [id number] Insurance:MEDICARE NEITZELTDOB: Community [address] PART [address] [facility] [id number] [place] Number: Repository [phone]: 419 [id number] [phone] () Date:2017-09-24 09/24/2017 Secondary BEATRICE A [place] Insurance:WPS NEITZELTDOB: [facility] [place], [place] [id number] Hospital Number: Repository [id number] Date:8361-17-03GS [address], [place] [address]GX: 09/24/2017 Tertiary NOT GIVENUNK [place] Insurance:SELF PAY [facility] Number: Effective Repository Date:2017-09-24 09/24/2017 BEATRICE A Primary BEATRICE A [place] [id number] Insurance:MEDICARE NEITZELTDOB: Community [address] PART [address] [facility] [id number] Number: Repository [phone]: [phone] [id number] [phone] () Date:2017-06-20 09/24/2017 Secondary BEATRICE A [place] Insurance:WPS NEITZELTDOB: [facility] FOR [facility] [id number] Hospital Number: Repository [id number] Date:2685-10-00PL [address], [place] [address]YI: 09/24/2017 Tertiary NOT GIVENUNK [place] Insurance:SELF PAY [facility] Number: Effective Repository Date:2017-09-24 09/17/2017 BEATRICE A Primary BEATRICE A [place] [id number] SR Insurance:MEDICARE NEITZELTDOB: Community [address] [place] [address] PART A [facility] [id number] Hospital [address]Brd: 419) Number: Repository [phone] () [id number] Date:2017-06-20 09/17/2017 Secondary BEATRICE A [place] Insurance:WPS NEITZELTDOB: [facility], [place] [id number] Hospital Number: Repository [id number] Date:5951-13-53[address], [place] [address]YL: 09/17/2017 Tertiary NOT GIVENUNK [place] Insurance:SELF PAY [facility] Number: Effective Repository Date:2017-06-20 09/17/2017 BEATRICE A Primary BEATRICE A [place] [id number] Insurance:MEDICARE NEITZELTDOB: Community [address] PART A [facility] [id number] Number: Repository [phone]: 419 [id number] [phone] () Date:2017-06-20 09/17/2017 Secondary BEATRICE A [place] Insurance:WPS NEITZELTDOB: [facility] [place], [place] [id number] Hospital Number: Repository [id number] Date:7259-25-91[address], [place] [address]FG: 09/17/2017 Tertiary NOT GIVENUNK [place] Insurance:SELF PAY [facility] Number: Effective Repository Date:2017-09-17 06/27/2017 BEATRICE A Primary BEATRICE A [place] [id number] SR Insurance:MEDICARE NEITZELTDOB: Community [address] [place] [address] PART A [facility] [id number] Hospital [address]Jcs: (419) Number: Repository [phone] () [id number] Date:2017-06-27 06/27/2017 Secondary BEATRICE A [place] Insurance:WPS NEITZELTDOB: [facility] [place], [place] [id number] Hospital Number: Repository [id number] Date:5418-72-65[address], [place] [address]AY: 06/27/2017 Tertiary NOT GIVENUNK [place] Insurance:SELF PAY [facility] Number: Effective Repository Date:2017-06-27 06/20/2017 BEATRICE A Primary BEATRICE A [place] [id number] SR Insurance:MEDICARE NEITZELTDOB: [address] PART A [facility] [id number] Hospital [address]Bdl: (419) Number: Repository [phone] () [id number] Date:2017-05-30 06/20/2017 Secondary BEATRICE A [place] Insurance:WPS NEITZELTDOB: [facility] [place], [place] [id number] Hospital Number: Repository [id number] Date:1995-27-75[address], [place] [address]YN: 06/20/2017 Tertiary NOT GIVENUNK [place] Insurance:SELF PAY [facility] Number: Effective Repository Date:2017-05-30 05/26/2017 BEATRICE A Primary BEATRICE A [place] [id number] SR Insurance:MEDICARE NEITZELTDOB: Community [address] [place] [address] [facility] [id number] [facility] [address]Zmo: (419) Number: Repository [phone] () [id number] Date:2017-05-26 05/26/2017 Secondary BEATRICE A [place] Insurance:WPS OVIDIO THOMASELTDOB: [facility] [place], [place] [id number] Hospital Number: Repository [id number] Date:0131-65-67QX [address], [place] [address]DX: 05/26/2017 Tertiary NOT GIVENUNK [place] Insurance:SELF PAY [facility] Number: Effective Repository Date:2017-05-26
== END ==
PROVIDERS: Family Provider Family Medicine; PCP Family Medicine; Referring Provider Internal Medicine Cardiovascular Disease; Visit Provider Internal Medicine Cardiovascular Disease
DX: I50.9 Heart failure, unspecified (principal); I43 Cardiomyopathy in diseases classified elsewhere; J44.9 Chronic obstructive pulmonary disease, unspecified; Z79.899 Other long term (current) drug therapy
CPT/HCPCS: 71046; 94060; 94726; 94729

== ENCOUNTER → 2018-05-29 12:17 | Outpatient (CLI) | payer MEDICARE, OTHER, SELFPAY ==
[2018-05-18 14:59] VITALS: BMI 30.6
--- NOTE | 2018-05-29 12:18 | STE_ITS ---
Reason For Study: CAD/ASHD Stress Results Protocol: Stress Echocardiogram Maximum Predicted HR: 154 bpm Target HR: 131 bpm % Maximum Predicted HR: 92 % DurationHeart Rate Stage (mm:ss) (bpm) BP Comment BASELINE 65 153/68 DEEP PROTOCOL- STAGE 1 3:00 112 180/80 DEEP PROTOCOL- STAGE 2 1:37 142 / SL SOB, T WAVE INVERSION NOTED RECOVERY 75 184/100 Stress Duration: 4:37 mm:ss Maximum Stress HR: 142 bpm Baseline Echocardiogram Findings The estimated ejection fraction is 65 %. Stress Echo Wall motion Data Resting WM Intermediate WM Stress WM Resting Wall Motion Wall Motion Stress No regional wall motion Posterior-Basal: Severely abnormalities noted. hypokinetic. Mid-Lateral : Severely Hypokinetic. Mid-Posterior: Severely Hypokinetic. EKG Data Normal intervals are noted. The patient exercised according to the regular Deep protocol for a total duration of 4:37. The maximum heart rate attained was 142 beats per minute. This was 92% of maximum predicted heart rate. The patient exercised into stage 2 of the Deep protocol. The stress ECG displays diffuse abnormal ST segments. No arrhythmias noted. Interpretation Summary Posterior-Basal: Severely hypokinetic. Mid-Lateral : Severely Hypokinetic. Mid-Posterior: Severely Hypokinetic. The estimated ejection fraction is 65 %. Abnormal, adequate, treadmill echocardiogram. Positive for ischemia by both EKG and echocardiographic criteria. Below average exercise capacity for age. Baseline hypertension with hypertensive blood pressure response to age. Patient appeared to developed inferior posterior lateral hypokinesis seen in several views. In addition he developed inferior lateral ST segment depression and T wave inversion which progressed to around 13 minutes into recovery. No anginal symptoms noted. No arrhythmias noted. Final LVEF of 45%. Patient was referred to our office for repeat catheterization. No complications. Ordering Physician: José Miguel Francis MD Referring Physician: José Miguel Francis Performed By:
== END ==
PROVIDERS: Family Provider Family Medicine; PCP Family Medicine; Referring Provider Internal Medicine Cardiovascular Disease; Visit Provider Internal Medicine Cardiovascular Disease
DX: I50.9 Heart failure, unspecified (principal); I43 Cardiomyopathy in diseases classified elsewhere; I25.10 Atherosclerotic heart disease of native coronary artery without angina pectoris
CPT/HCPCS: 93017; 93350

== ENCOUNTER → 2018-06-01 12:51 | Outpatient (CLI) | payer MEDICARE, OTHER, SELFPAY ==
[2018-05-18 14:59] VITALS: BMI 30.6
[2018-06-01 14:11] LABS: AST(SGOT) 14 U/L (15-37); Alanine Aminotransfer ALT/SGPT 24 U/L (16-61); Albumin, Serum 3.8 g/dL (3.2-5.0); Alkaline Phosphatase 62 U/L (45-117); Bilirubin, Direct 0.14 mg/dL (0.00-0.30); Cholesterol 148 mg/dL (200); Globulin 3.6 g/dL (2.2-4.2); High Density Lipoprotein 28 mg/dL; Protein, Total 7.4 g/dL (6.4-8.2); Triglycerides 183 mg/dL; Very Low Density Lipoprotein 37 mg/dL (5-40)
== END ==
PROVIDERS: Family Provider Family Medicine; PCP Family Medicine; Referring Provider Internal Medicine Cardiovascular Disease; Visit Provider Internal Medicine Cardiovascular Disease
DX: I25.10 Atherosclerotic heart disease of native coronary artery without angina pectoris (principal); Z79.899 Other long term (current) drug therapy
CPT/HCPCS: 36415; 80061; 80076

== ENCOUNTER 2018-06-10 07:30 | Day surgery (SDC) | payer MEDICARE, OTHER, SELFPAY ==
[2018-05-18 14:59] VITALS: BMI 30.6
[2018-05-29 14:56] LABS: Hematocrit 46.4 % (40-54); Hemoglobin 15.4 g/dl (13.0-16.5); Mean Corp Hgb Conc 33.2 g/gl (32-36); Mean Corpuscular Hgb 31.5 pg (27.0-32.0); Mean Corpuscular Volume 94.9 fL (80-94); Mean Platelet Vol. 10.4 fl (6.2-12.0); Platelet Count 217 K/mm3 (150-450); RBC Distribution Width CV 13.5 % (11.6-14.6); RBC Distribution Width SD 45.6 fl (35.1-43.9); Red Blood Count 4.89 M/mm3 (4.6-6.2); Scan Indicated on CBC? Y/N NO
[2018-05-29 15:06] LABS: Prothrombin Time (Protime)PT. 13.2 SECONDS (11.7-14.9)
[2018-05-29 15:07] LABS: Partial Thromboplast Time 32.6 Seconds (24.1-36.2)
[2018-05-29 15:28] LABS: Anion Gap 6 (5-15); BUN 14 mg/dL (7-18); BUN/Creat Ratio 11.4 RATIO (10-20); Calcium,Total 9.1 mg/dL (8.5-10.1); Chloride 110 mmol/L (98-107); Creatinine, Serum 1.23 mg/dL (0.70-1.30); EST Glomerular Filtration Rate 63 mL/min (>60); Est Glom Filt Rate - Afr Amer 76 mL/min (>60); Glucose 91 mg/dL (74-106); Potassium 4.4 mmol/L (3.5-5.1); Sodium Level 143 mmol/L (136-145)
[2018-06-09 08:40] VITALS: BMI 30.6
[2018-06-10] VITALS (20 sets, daily range): BP systolic 115–175; BP diastolic 55–92; PULSE 46–67; RESP 12–23; TEMP 36.7–36.9; O2SAT 93–99; BMI 30.2
[2018-06-10] MEDS: 0.9% Normal Saline 1,000 ML 150 ML IV (10:00)
--- NOTE | 2018-06-10 10:02 | EKG12_ITS ---
Test Reason : POST STENT Blood Pressure : / mmHG Vent. Rate : 055 BPM Atrial Rate : 055 BPM P-R Int : 194 ms QRS Dur : 098 ms QT Int : 470 ms P-R-T Axes : 053 037 138 degrees QTc Int : [address] & T wave abnormality, consider lateral ischemia Abnormal ECG No previous ECGs available Confirmed by BRITTNI VENTURA, ELSIE ([id number]), assistant editor BRENNA MIMS ([id number]) on 06/15/2018 11:28:06 AM Referred By: José Miguel Fracnis Confirmed By:ELSIE ELKINS MD
--- NOTE | 2018-06-10 11:00 | CRPHASE1 ---
Patient Data/Charges Phase II Referral:: [facility] Start Phase II:: FOLLOWING OFFICE VISIT WITH FILING OR REGISTRY CLERK Risk Factors/Lifestyle Smoking Status: Former smoker Hx Metabolic Disorders: Yes Hx Dyslipidemia: Yes Hx Obesity: Yes Height: 6 ft 1 in - BMI 30.2 Stress: Home/Family ETOH: Yes Risk Factor for Sedentary Lifestyle: Moderate Risk Family History: Family History (Last Reviewed 05/18/18 @ 14:53 by Vera Jones) Father Heart disease Past Cardiac Illness: Valve Disorders, Coronary Artery Disease Phase I Education Given On:: [place], Nutrition, Antiplatelet medication Issues Affecting Care:: None Knowledge of Condition:: Yes Learning Preferences: Verbal, Written - FAMILY AT BEDSIDE Hospital Course Presenting Symptoms:: ABNORMAL STRESS Medical/Surgical History [place]:: No CAD:: Yes Cardiomyopathy:: Yes Valve Disease/Replacement:: Yes Diabetes:: No Dyslipidemia:: Yes Arrhythmias:: Yes - ATRIAL FIBRILLATION Other Medical/Surgical Issues:: DIVERTICULITIS Discharge/Home/Social Eval Discharge Disposition: Home
--- NOTE | 2018-06-10 11:04 | CRPHASE1_ITS ---
Patient Data/Charges Phase II Referral:: [facility] Start Phase II:: FOLLOWING OFFICE VISIT WITH COOLER WORKER Risk Factors/Lifestyle Smoking Status: Former smoker Hx Metabolic Disorders: Yes Hx Dyslipidemia: Yes Hx Obesity: Yes Height: 6 ft 1 in - BMI 30.2 Stress: Home/Family ETOH: Yes Risk Factor for Sedentary Lifestyle: Moderate Risk Family History: Family History (Last Reviewed 05/18/18 @ 14:53 by Vera Jones) Father Heart disease Past Cardiac Illness: Valve Disorders, Coronary Artery Disease Phase I Education Given On:: [place], Nutrition, Antiplatelet medication Issues Affecting Care:: None Knowledge of Condition:: Yes Learning Preferences: Verbal, Written - FAMILY AT BEDSIDE Hospital Course Presenting Symptoms:: ABNORMAL STRESS Medical/Surgical History [place]:: No CAD:: Yes Cardiomyopathy:: Yes Valve Disease/Replacement:: Yes Diabetes:: No Dyslipidemia:: Yes Arrhythmias:: Yes - ATRIAL FIBRILLATION Other Medical/Surgical Issues:: DIVERTICULITIS Discharge/Home/Social Eval Discharge Disposition: Home
--- NOTE | 2018-06-10 11:04 | CRPH1.INSTRU ---
General Education CAD and cardiac anatomy and function:: Patient communicates acknowledgment - FAMILY AT BEDSIDE, Family communicates acknowledgment Explanation of diagnoses and procedures:: Patient communicates acknowledgment, Family communicates acknowledgment Sign/Symptoms of SC:: Patient communicates acknowledgment, Family communicates acknowledgment Antiplatelet therapy: Patient communicates acknowledgment, Family communicates acknowledgment Proper use of NTG-SL: Not instructed Emergency procedures and activation of EMS: Patient communicates acknowledgment, Family communicates acknowledgment Compliance of all prescribed medications: Patient communicates acknowledgment, Family communicates acknowledgment Smoking Patient Nicotine/Smoking Risk Factors Are:: Cigarettes Recommendations Include:: Previous smoker; encourage continued cessation Nicotine/Smoking Response Code:: Patient communicates acknowledgment, Family communicates acknowledgment Dyslipidemia Patient Dyslipidemia Risk Factors Are:: Total Cholesterol, Triglycerides, HDL, LDL Recommendations Include:: Lipid profile provided, Reviewed NCEP/ATP guidelines, Therapeutic Lifestyle Change dietary guidelines Dyslipidemia Response Code:: Patient communicates acknowledgment, Family communicates acknowledgment Overweight/Obesity Patient Overweight/Obesity Risk Factors Are:: Obesity - > or = 30 Recommendations Include:: Weight loss of 5-10%, Reduced calorie diet, Exercise 5-7 times/week Overweight/Obesity:: Patient communicates acknowledgment, Family communicates acknowledgment Hypertension Patient Hypertension Risk Factors Are:: No documented hx of HTN Heart Disease Heart Disease Response Code:: Not instructed Diabetes Patient Diabetes Risk Factors Are:: No documented hx of diabetes Metabolic Syndrome Patient Metabolic Syndrome Risk Factors Are [3 of 5]:: Waist circumference > 35 [female] or 40 [male], High triglyceride >150, Low HDL <40 [male] or < 50 [female] Recommendations Include:: Reinforce compliance to risk factor modifications, Encouraged follow-up with Primary Care Physician Metabolic Syndrome Response Code:: Patient communicates acknowledgment, Family communicates acknowledgment Sedentary Patient Sedentary Risk Factors Are:: Lack of regular exercise Recommendations Include:: Aerobic exercise 5-7 times/week for 20-30 minutes continuously, Benefits of regular exercise, Discussed home walking program, Monitored Outpatient Cardiac Rehab Sedentary Response Code:: Patient communicates acknowledgment, Family communicates acknowledgment Stress Recommendations Include:: Identification of stressors, and assessment of coping skills, Stress management techniques Stress Response Code:: Patient communicates acknowledgment, Family communicates acknowledgment
[2018-06-10 11:21] LABS: ACT Activated Clotting Time 197 sec (74-137)
--- NOTE | 2018-06-10 11:26 | CL.I_ITS ---
Patient Name: BEATRICE AGUILAR Study Date: 06/10/2018 Performing: José Miguel Francis MD Ht: 73 inches 185 cm : 1950 Wt: 231.8 lbs 105 kg Age: 67 Gender: male BSA: 2.29 PROCEDURE(S) PERFORMED LR24-HLD/COR/LV KI37-NKV W OR WO PTCA, SINGLE CORONARY ARTERY CLINICAL PROFILE AND CO-MORBIDITIES Indications: New Onset Angina <= 2 months, Stable Known CAD Heart Failure: None Stress/Imaging Stress Echocardiogram: Yes Result: Positive Intermediate Risk Stress Echocardiogra m: Positive Intermediate Risk Angina Classification Anginal Classification w/in 2 Weeks: CCS III CAD Presentations: Unstable angina. Comorbidities/Risk Factors: Current/Recent Smoker (< 1year) Hypertension Dyslipidemia CONCLUSIONS Normal LV size, wall motion,and systolic function Single vessel CAD of the mid LCX Non obstructive coronary arteries Successful PTCA/ANNABEL of mid LCX with a 2.5 x 16 Promus Synergy, post dilated with a 2.75 x 8 NC Balloo n; 75%-->0%, no dissection. RECOMMENDATIONS Referred for immediate PCI Management as per referring Residential Green Building Designer Highly recommend quitting all tobacco products Follow up with primary cruise consultant Risk factor modification ASA Indefinitley Plavix for at least 12 months Routine post interventional care Refer for Outpatient Cardiac Rehab Manual sheath removal per protocol Follow up with Dr. Francis DESCRIPTION OF PROCEDURE The patient arrived to the procedure lab. The risks and benefits of the procedure as well as a full d escription of our services here and lack of surgical backup were fully explained to the patient and/o r their significant other prior to the catheterization. The Timeout was completed, verifying the héctor ect patient and procedure. The patient's procedural site was prepped and draped in the usual fashion. Local anesthetic was given subcutaneously to right groin region with Lidocaine 2%. Using a modified Seldinger technique, arterial access was obtained via the right femoral artery, a 4Fr sheath was inse rted. Left Coronary Artery selective angiography was performed in multiple views using a 4 Fr. JL5 c atheter. Right Coronary Artery selective angiography was then performed in multiple views using a 4 F r. 3DRC catheter. Left Ventriculography was performed in CROWELL projection using a 4 Fr. Pigtail cathete r. LV to AO pullback pressures were then recordedThe images were reviewed and options discussed. A decision was then made to proceed with an Intervention, IVUS or other adjunct procedure. Arterial sheath was exchanged for a 6 Fr Sheath. EBU 3.75 Guide catheter was inserted and engaged into the LCA. BMW Guide wire was advanced to the Circumflex. 2.00X12 Balloon catheter was advanced a cross lesion in the circumflex, mid. PTCA balloon inflated at 8 atms for 10 secs. 2.50X20 SYNERGY Amadou g Eluting stent was inserted. Drug Eluting stent was advanced across the lesion in the circumflex, mi d. 2.75X8 NC EMERGE Balloon catheter was inserted post stent. Angiogram performed post balloon dilata tion. The arterial sheath was pulled and a Mynx closure device was deployed for hemostasis CORONARY ANGIOGRAPHY DOMINANCE: Right Dominant LEFT HEART ASSESSMENT Left Ventricular Ejection Fraction: by LV Gram 65 % Normal Left Ventricular systolic function LVEDP: 14 mmHg Normal LV wall motion. Normal LV wall motion LEFT MAIN: Angiographically normal LEFT ANTERIOR DECENDING ARTERY: Mild luminal irregularities less than 30% CIRCUMFLEX ARTERY: MID CIRC: 75 % Stenosis RIGHT CORONARY ARTERY: Mild luminal irregularities less than 30% INTERVENTION INFORMATION LESION SITE: Circumflex (Mid) Lesion Complexity: Non-High/Non-C, lesion at bifurcation: No, thrombus present: No, lesion length: 16 mm, culprit lesion: Yes Pre Stenosis: 75 % Pre intervention GABY flow: 3 PROCEDURE: Drug Eluting Stent with pre and post dilatation Post Stenosis: 0 % Post intervention GABY flow: 3 Lesion Devices: Rentelligencetronic 6 Fr EBU3.75 100cm Guide Catheter Cabrera .014 BMW [place] Straight 190cm Andrea Sci EMERGE MR 2.00x12 BALLOON Andrea Sci Synergy MR ANNABEL 2.50x20 Andrea Sci NC EMERGE MR 2.75x08 BALLOON COMPLICATIONS No Complications PROCEDURE MEDICATIONS Versed 1 mg IV Oxygen: 2 L/min via nasal cannula Heparin 6000 unit(s) IV 06/10/2018 09:07:24 Nitro 200 mcg IC 06/10/2018 09:10:16 Nitro 200 mcg IC 06/10/2018 09:10:16 SUMMARY OF HEMODYNAMIC DATA Time AIR REST ECG 07:56:30 AO 137/66 (92) SA 09:00:36 LV 150/-7, 14 09:05:48 LV 148/-11, 13 09:05:54 LVp 152/-11, 14 09:06:00 AOp 156/65 (98) 09:06:05 Signed By José Miguel Francis MD On 06/10/2018 11:25:04 AM Signed By José Miguel Francis MD On 06/10/2018 11:24:52 AM José Miguel Francis MD
[2018-06-10] MEDS: Acetaminophen 325 MG Tablet 650 MG PO (11:39)
--- NOTE | 2018-06-10 12:15 | NURSING ---
Pt refused morphine 2mg PRN to treat back pain at this time.
[2018-06-10] MEDS: hydrALAZINE 20 MG/ML Vial 10 MG IV ×2 (12:25→20:10)
[2018-06-10] MEDS: Furosemide 40 MG Tablet PO (15:57)
[2018-06-10] MEDS: Carvedilol 12.5 MG Tablet PO (21:07)
[2018-06-10] MEDS: Atorvastatin Calcium 20 MG Tablet PO (21:07)
[2018-06-11] VITALS (11 sets, daily range): BP systolic 121–156; BP diastolic 40–68; PULSE 50–73; RESP 15–22; TEMP 36.7; O2SAT 94–98
[2018-06-11 04:43] LABS: Hematocrit 41.2 % (40-54); Hemoglobin 13.3 g/dl (13.0-16.5); Mean Corp Hgb Conc 32.3 g/gl (32-36); Mean Corpuscular Hgb 31.2 pg (27.0-32.0); Mean Corpuscular Volume 96.7 fL (80-94); Mean Platelet Vol. 10.4 fl (6.2-12.0); Platelet Count 175 K/mm3 (150-450); RBC Distribution Width CV 13.7 % (11.6-14.6); RBC Distribution Width SD 46.6 fl (35.1-43.9); Red Blood Count 4.26 M/mm3 (4.6-6.2); White Blood Count 10.3 K/mm3 (4.4-11.0)
[2018-06-11 04:46] LABS: Scan Indicated on CBC? Y/N NO
[2018-06-11 04:58] LABS: Anion Gap 10 (5-15); BUN 15 mg/dL (7-18); BUN/Creat Ratio 12.3 RATIO (10-20); Calcium,Total 8.2 mg/dL (8.5-10.1); Chloride 111 mmol/L (98-107); Cholesterol 106 mg/dL (200); Creatinine, Serum 1.22 mg/dL (0.70-1.30); EST Glomerular Filtration Rate 63 mL/min (>60); Est Glom Filt Rate - Afr Amer 76 mL/min (>60); Estimated Creatinine Clearance 67.31 ml/min; Glucose 101 mg/dL (74-106); High Density Lipoprotein 28 mg/dL; Potassium 3.7 mmol/L (3.5-5.1); Sodium Level 143 mmol/L (136-145); Triglycerides 151 mg/dL; Very Low Density Lipoprotein 30 mg/dL (5-40)
--- NOTE | 2018-06-11 07:10 | PCM.DC.CCA ---
Discharge Diet: Low fat/ Low Cholesterol Discharge Activity: Return to Normal Activity May shower in (days): 1 - No tub baths for 5 days May resume sexual activity in: 1-2 weeks Lifting Restrictions: Do not lift anything greater than 10 pounds for 3 days Call your doctor if your incision/area has: Continuous Slow Oozing, Sudden Increased Bleeding, Increased Pain/ Swelling, Increased Redness, Foul Smelling Discharge, Swelling at the incision site Call your doctor if you observe: Fever of 101 or Higher, Shortness of breath, Chest pain Remove Dressing in (days):: 1 Cleanse incision/area with: Soap & Water Additional Instructions: You will remain on Plavix for at least one year. If anyone asks you to stop this, please contact the [facility] first, . You are scheduled for a [facility] office appointment on 06/25/2018 at 10:00 AM with Tariq Shook Nurse Practitioner. If you have any questions or concerns, please call the [facility] at [phone]. Allergies/Adverse Reactions: Allergies grass pollen Allergy (Verified 05/12/18 18:41) unknown wool Allergy (Verified 05/12/18 18:41) unknown Medications to take at Discharge Bisacodyl [Dulcolax] 5 mg PO DAILY PRN #1 tab 05/30/17 Senna [Senokot] 2 tab PO DAILY #30 tab 05/30/17 amiodarone 200 mg tablet 200 mg PO DAILY #90 tab 05/18/18 apixaban 2.5 mg tablet 2.5 mg PO BID #180 tab 05/18/18 carvedilol 12.5 mg tablet 12.5 mg PO BID #180 tab 05/18/18 losartan 50 mg tablet 50 mg PO DAILY #90 tab 05/18/18 sildenafil 100 mg tablet 100 mg PO DAILY PRN #30 tab 05/18/18 aspirin 81 mg tablet,delayed release 81 mg PO DAILY 05/29/18 Atorvastatin Calcium 20 mg PO QHS 06/09/18 Furosemide [Lasix] 40 mg PO DAILY 06/09/18 clopidogrel 75 mg tablet 75 mg PO DAILY #90 tab 06/11/18 The following prescriptions were given: clopidogrel 75 mg tablet 75 mg PO DAILY #90 tab Primary Care Physician: Young Emerson MD [Primary Care Provider] - Test Results: Test results from this visit will be discussed in further detail at your follow-up appointment, if applicable. Please Follow Up With: Tariq Shook - Nurse Practitioner When: 06/25/2018 at 10:00 AM Proposed Discharge Date: 06/11/18 Cardiac Rehabilitation Info Cardiac Rehabilitation Program Information: Cardiac Rehabilitation is important for patients like you who are recovering from a heart problem. Cardiac rehabilitation programs are recognized as integral to the continued care of the patient with coronary heart disease. The cardiac rehabilitation program is designed to optimize a patient's physical, psychological, and social functioning. Health rn acute care work in cardiac rehabilitation programs and assist you with getting the treatments you need to get stronger and healthier - like exercise, healthy eating habits, and medications. Cardiac rehabilitation has been show to help people with heart problems live longer and have better life enjoyment than people who do not go to cardiac rehabilitation. Please contact the Cardiac Rehabilitation Program at [facility] at in two weeks if you have not heard from them.
--- NOTE | 2018-06-11 07:14 | DCINST_ITS ---
Discharge Diet: Low fat/ Low Cholesterol Discharge Activity: Return to Normal Activity May shower in (days): 1 - No tub baths for 5 days May resume sexual activity in: 1-2 weeks Lifting Restrictions: Do not lift anything greater than 10 pounds for 3 days Call your doctor if your incision/area has: Continuous Slow Oozing, Sudden Increased Bleeding, Increased Pain/ Swelling, Increased Redness, Foul Smelling Discharge, Swelling at the incision site Call your doctor if you observe: Fever of 101 or Higher, Shortness of breath, Chest pain Remove Dressing in (days):: 1 Cleanse incision/area with: Soap & Water Additional Instructions: You will remain on Plavix for at least one year. If anyone asks you to stop this, please contact the [facility] Office first, . You are scheduled for a [facility] office appointment on 06/25/2018 at 10:00 AM with Tariq Shook Nurse Practitioner. If you have any questions or concerns, please call the [facility] Office at [phone]. Allergies/Adverse Reactions: Allergies grass pollen Allergy (Verified 05/12/18 18:41) unknown wool Allergy (Verified 05/12/18 18:41) unknown Medications to take at Discharge Bisacodyl [Dulcolax] 5 mg PO DAILY PRN #1 tab 05/30/17 Senna [Senokot] 2 tab PO DAILY #30 tab 05/30/17 amiodarone 200 mg tablet 200 mg PO DAILY #90 tab 05/18/18 apixaban 2.5 mg tablet 2.5 mg PO BID #180 tab 05/18/18 carvedilol 12.5 mg tablet 12.5 mg PO BID #180 tab 05/18/18 losartan 50 mg tablet 50 mg PO DAILY #90 tab 05/18/18 sildenafil 100 mg tablet 100 mg PO DAILY PRN #30 tab 05/18/18 aspirin 81 mg tablet,delayed release 81 mg PO DAILY 05/29/18 Atorvastatin Calcium 20 mg PO QHS 06/09/18 Furosemide [Lasix] 40 mg PO DAILY 06/09/18 clopidogrel 75 mg tablet 75 mg PO DAILY #90 tab 06/11/18 The following prescriptions were given: clopidogrel 75 mg tablet 75 mg PO DAILY #90 tab Primary Care Physician: Young Emerson MD [Primary Care Provider] - Test Results: Test results from this visit will be discussed in further detail at your follow- up appointment, if applicable. Please Follow Up With: Tariq Shook - Nurse Practitioner When: 06/25/2018 at 10:00 AM Proposed Discharge Date: 06/11/18 Cardiac Rehabilitation Info Cardiac Rehabilitation Program Information: Cardiac Rehabilitation is important for patients like you who are recovering from a heart problem. Cardiac rehabilitation programs are recognized as integral to the continued care of the patient with coronary heart disease. The cardiac rehabilitation program is designed to optimize a patient's physical, psychological, and social functioning. Health family member caretaker work in cardiac rehabilitation programs and assist you with getting the treatments you need to get stronger and healthier - like exercise, healthy eating habits, and medications. Cardiac rehabilitation has been show to help people with heart problems live longer and have better life enjoyment than people who do not go to cardiac rehabilitation. Please contact the Cardiac Rehabilitation Program at [facility] at in two weeks if you have not heard from them.
--- NOTE | 2018-06-11 09:01 | PCM.PN.CARD ---
Subjectve: Patient doing very well, no 24-hour events. Right groin has some mild ecchymosis but otherwise stable. No hematoma, bruits, or tenderness. EKG shows normal sinus rhythm, no acute changes. Hemoglobin and creatinine are within nominal limits. Telemetry negative. Objective: Vital Signs Temp Pulse Resp BP Pulse Ox 98.0 F 50 L 18 129/51 H 96 06/11/18 04:00 06/11/18 07:00 06/11/18 07:00 06/11/18 07:00 06/11/18 07:43 Oxygen Delivery Method Room Air Weight: 229 lb 8.019 oz Body Mass Index (BMI) 30.2 Intake and Output for Last 24 Hours 06/09/18 06/10/18 06/11/18 23:59 23:59 23:59 Intake Total 1573 / 1573 1000 / 1000 Output Total 2900 / 2900 Balance 1573 / 1573 -1900 / -1900 General: Awake, Alert, Oriented x 3 HEENT: PERRL, EOMI, Sclera Non Icteric Neck: Supple, Good ROM, No Lymph Node Enlargement Lungs: Clear to auscultation Cardiovascular: Regular Rhythm, Normal S1, Normal S2, No Murmurs, No Rubs, No Gallops Vascular: No Carotid Bruits, Normal Femoral Pulses, Normal Radial Pulses, Normal Dorsalis Pedal Pulse, Normal Posterior Tibial Pulses Abdomen: Bowel Sounds Present, Soft, Non Tender, No HSM, No Organomegaly Extremities: No Cyanosis, No Clubbing, No edema Neurological: No Focal Motor or Sensory Deficit 06/11/18 04:35: WBC 10.3, RBC 4.26 L, Hgb 13.3, Hct 41.2, MCV 96.7 H, MCH 31.2, MCHC 32.3, RDW 13.7, RDW Differential 46.6 H, Plt Count 175, MPV 10.4 06/11/18 04:35: Sodium 143, Potassium 3.7, Chloride 111 H, Carbon Dioxide 22.0, Anion Gap 10, BUN 15, Creatinine 1.22, Est GFR (MDRD) Af Amer 76, Est GFR (MDRD) Non-Af 63, BUN/Creatinine Ratio 12.3, Glucose 101, Calcium 8.2 L, Triglycerides 151, Cholesterol 106, LDL Cholesterol 48, VLDL Cholesterol 30, HDL Cholesterol 28 L Rhythm: EKG: ECHO: Stress Test: Cardiac Cath: PCI: CT Surgery: Holter monitor: EPS: PPM: CXR: Chest CT Scan: Medical Necessity - Tobacco Use Smoking Status: Former smoker Assessment/Plan 1. Coronary artery disease: Status post angioplasty and drug-eluting stenting to the mid left circumflex artery. No additional stenting required at this time. No additional testing needed at this time. Would recommend continuing baby aspirin, Plavix, and antihypertensive medications. He will follow-up in our office in 1 week's time for a groin check, followed by enrollment in cardiac rehab. 2. Hyperlipidemia: Continue statin based medications. Repeat lipid profile after cardiac rehab completed. 3. Patient may be discharged home and follow-up with Dr. Francis going forward. Code Visit Inpatient E&M: [id number] [facility] Hosp L2
[2018-06-11] MEDS: Senna Tablet 2 TABLET PO (09:30)
[2018-06-11] MEDS: Losartan Potassium 50 MG Tablet PO (09:30)
[2018-06-11] MEDS: Carvedilol 12.5 MG Tablet PO (09:30)
[2018-06-11] MEDS: Furosemide 40 MG Tablet PO (09:31)
[2018-06-11] MEDS: Amiodarone 200 MG Tablet PO (09:31)
[2018-06-11] MEDS: Clopidogrel Bisulfate 75 MG Tablet PO (09:31)
[2018-06-11] MEDS: Aspirin E.C. 81 MG Tablet PO (09:31)
--- NOTE | 2018-06-11 10:26 | CASEMGMT ---
All pt's scripts were sent to [facility]. Preferred pharmacy changed to [facility] at this time for future scripts. Per Lon MARKHAM, the only new med for pt is the plavix and he had actually already started it a few days prior to coming in and has enough to get him through until he receives his prescribed meds from this visit. Per Lon MARKHAM, pt voices no further concerns/needs at this time. Minerva MARKHAM CM
== END 2018-06-11 10:50 | disposition home or self-care (01) ==
LOC: CLSP 07:31 → ICU 09:21
PROVIDERS: Family Provider Family Medicine; PCP Family Medicine; Referring Provider Internal Medicine Cardiovascular Disease; Visit Provider Internal Medicine Cardiovascular Disease
DX: I25.110 Atherosclerotic heart disease of native coronary artery with unstable angina pectoris (principal); I43 Cardiomyopathy in diseases classified elsewhere; I48.91 Unspecified atrial fibrillation; I11.0 Hypertensive heart disease with heart failure; I10 Essential (primary) hypertension; E78.5 Hyperlipidemia, unspecified; Z79.899 Other long term (current) drug therapy; Z79.01 Long term (current) use of anticoagulants; Z87.19 Personal history of other diseases of the digestive system; Z98.52 Vasectomy status
CPT/HCPCS: 36415; 80048; 80061; 85027; 85347; 85610; 85730; 92928; 93005; 93458; 97802; 99152; 99153; C1760; J7030; J7040; Q9967; C1725; C1769; C1874; C1887; C1894; C9600

== ENCOUNTER → 2018-06-16 14:59 | Outpatient (CLI) | payer MEDICARE, OTHER, SELFPAY ==
[2018-06-16 14:16] VITALS: BMI 30.2
--- NOTE | 2018-06-16 15:07 | ADUL_ITS ---
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 No evidence of pseudoaneurysm or AV fistula. Procedure Exam performed in department. Interpretation Summary Normal diameter and flow right common femoral artery and vein. No evidence for pseudoaneurysm or fistula Ordering Physician: Dina Solorzano Referring Physician: Young Emerson MD Performed By: Stephany Anna RVT
== END ==
PROVIDERS: Family Provider Family Medicine; PCP Family Medicine; Referring Provider Physician Assistant Medical; Visit Provider Physician Assistant Medical
DX: R09.89 Other specified symptoms and signs involving the circulatory and respiratory systems (principal)
CPT/HCPCS: 93926

== ENCOUNTER → 2018-07-24 14:31 | Outpatient (CLI) | payer MEDICARE, OTHER, SELFPAY ==
[2018-06-22 10:50] VITALS: BMI 30.9
--- NOTE | 2018-07-24 14:34 | CT_ITS ---
STUDY: LOW DOSE CT LUNG CANCER SCREENING REASON FOR EXAM: Male, 67 years old. Between 36 and 72 pack-year history. RADIATION DOSAGE (If Supplied By Facility): CTDIvol = ( 4.02 ) mGy, DLP = ( 143.96 ) mGycm TECHNIQUE: No contrast was administered. Low dose technique was utilized (average mAS-38 and kVp 120). 1.25 mm axial source images with a slice interval of 1.25-mm were reconstructed in lung windows. 2.5 mm axial source images with a slice interval of 2.5-mm were reconstructed in lung windows. 5.0 mm axial source images with a slice interval of 5.0-mm were reconstructed in soft tissue windows. Nodule measured using lung windows on PACS and/or independent workstation with automated measurement of minimum and maximum diameter. Nodule measurement reported as average diameter rounded to the nearest whole number. Growth is defined as an increase ins size of greater than 1.5 mm. COMPARISON: Chest, May 26, 2018. CTA of the chest, May 26, 2017. NODULES: Nodule #: 1 Density: Solid Lung location: ] Upper lobe: Pleural-based Location in series: Series Number: 2 Image: 122 Size - D1 x D2 mm: 6 x 4 mm: 5 mm average diameter Margin: Smooth Shape: Rounded Calcification: No Fat: No Temporal comparison: Stable Nodule #: 2 Density: Solid Lung location: Right lower lobe: Pleural-based Location in series: Series Number: 2 Image: 172 Size - D1 x D2 mm: 5 x 4 mm: 5 mm average diameter Margin: Smooth Shape: Rounded Calcification: None Fat: 9 Temporal comparison: Stable Total lung nodules (excluding granulomas): 2 Emphysema: There are diffuse emphysematous changes of lungs. Endobronchial lesion: None Aorta: There is minimal atherosclerotic changes of the aortic arch without aneurysm. Coronary arteries: Stable calcifications of the coronary arteries. Heart: Normal in size. Pulmonary artery: Normal Mediastinal nodes: There is decreased mediastinal lymphadenopathy when compared to the prior study. Scattered subcentimeter lymph nodes remain. Other chest and abdominal findings: There is resolution of the right pleural effusion seen on the prior study. There are stable degenerative changes of the thoracic spine. CT/Low Dose CT Lung Screening IMPRESSION: Lung-RADS category 2 - Continue annual screening with LDCT in 12 months. IMPORTANT NOTES FOR USE: ACR Lung-RADS Version 1.0 Assessment Categories Release Date: August 30, 2013 Category: Coded 0-4 bases on nodule(s) with highest degree of suspicion. Negative screen is defined as categories 1 and 2; a positive screen is defined as categories 3 and 4. Category 3 and 4A nodules that are unchanged on interval CT should be coded as category 2, and individuals returned to screening in 12 months. Category 4X: Category 3 or 4 nodules with additional imaging findings that increase the suspicion of lung cancer, such as spiculation, GGN that doubles in size in 1 year, enlarged lymph notes, etc. Category Modifiers: S (significant finding unrelated to lung cancer) and C (prior history of treated lung cancer) may be added to the 0-4 Lung-RADS Electronically Signed: Cosme Wilson DO at 9:35 EDT Tel [phone], Service support ,
== END ==
PROVIDERS: Family Provider Family Medicine; PCP Family Medicine; Referring Provider Family Medicine; Visit Provider Family Medicine
DX: Z87.891 Personal history of nicotine dependence (principal)
CPT/HCPCS: G0297

== ENCOUNTER → 2019-05-31 16:12 | Outpatient (CLI) | payer MEDICARE, OTHER, SELFPAY ==
[2018-12-01 16:04] VITALS: BMI 29.0
[2019-05-31 17:54] LABS: Creatinine, Serum 1.17 mg/dL (0.70-1.30); EST Glomerular Filtration Rate 66 mL/min (>60); Est Glom Filt Rate - Afr Amer 80 mL/min (>60)
== END ==
PROVIDERS: PCP Family Medicine; Referring Provider Otolaryngology; Visit Provider Otolaryngology
DX: H90.A22 Sensorineural hearing loss, unilateral, left ear, with restricted hearing on the contralateral side (principal)
CPT/HCPCS: 36415; 82565

== ENCOUNTER → 2019-06-08 08:53 | Outpatient (CLI) | payer MEDICARE, OTHER, SELFPAY ==
[2018-12-01 16:04] VITALS: BMI 29.0
--- NOTE | 2019-06-08 08:57 | MRI_ITS ---
STUDY: MRI BRAIN WITH AND WITHOUT CONTRAST (ATTENTION INTERNAL AUDITORY CANALS - I.A.C.''s) REASON FOR EXAM: Male, 68 years old. Hearing loss LEFT EAR, vertigo x 4 weeks TECHNIQUE: Standardized multiplanar fat and water weighted pulse sequences were obtained. Pt received 20ml Dotarem via IV was administered for the contrast portion of the examination. COMPARISON: February 24, 2013 FINDINGS: Normal bilateral temporal bones. Normal bilateral internal auditory canals. There is no demonstrated intracanalicular or cisternal vestibular schwannoma (acoustic neuroma). There is no enhancement of the bilateral VIIth or VIIIth cranial nerves. Normal bilateral cochlea, vestibules and semicircular canals. Normal size of the ventricles and extra-axial spaces for the patient''s age. There are multiple white matter hyperintensities, distributed throughout the deep white matter tracts of the cerebral hemispheres, consistent with mild chronic white matter ischemic changes. Normal bilateral basal ganglia. Normal thalami. Normal flow voids within the major intracranial circulation suggesting patency by spin echo criteria. Normal venous enhancement. There is no enhancing intra-axial or extra-axial abnormality. There is no extra-axial fluid accumulation. Normal sella turcica, pituitary gland, infundibular stalk, optic chiasm and hypothalamus. Normal tectal plate and pineal gland. Normal midbrain, martinez and medulla. Normal cerebellum. MRI/Brain W/WO Contrast IMPRESSION: Unremarkable bilateral internal auditory canals (I.A.C''s). Electronically Signed: Darron Wakefield MD at 13:56 EST Tel , Service support ,
== END ==
PROVIDERS: PCP Family Medicine; Referring Provider Otolaryngology; Visit Provider Otolaryngology
DX: H90.A22 Sensorineural hearing loss, unilateral, left ear, with restricted hearing on the contralateral side (principal)
CPT/HCPCS: 70553; A9575

== ENCOUNTER → 2019-07-09 09:13 | Outpatient (CLI) | payer MEDICARE, OTHER, SELFPAY ==
[2019-06-29 11:30] VITALS: BMI 28.8
[2019-07-09 11:36] LABS: AST(SGOT) 13 U/L (15-37); Alanine Aminotransfer ALT/SGPT 19 U/L (16-61); Albumin, Serum 3.8 g/dL (3.2-5.0); Alkaline Phosphatase 76 U/L (45-117); Bilirubin, Direct 0.13 mg/dL (0.00-0.30); Cholesterol 101 mg/dL (200); Globulin 3.3 g/dL (2.2-4.2); High Density Lipoprotein 34 mg/dL; Protein, Total 7.1 g/dL (6.4-8.2); T4 Total, Thyroxin 11.1 ug/dL (4.5-12.1); Thyroid Stim Hormone (TSH) 1.81 uIU/mL (0.358-3.74); Triglycerides 73 mg/dL; Very Low Density Lipoprotein 15 mg/dL (5-40)
== END ==
PROVIDERS: PCP Family Medicine; Referring Provider Internal Medicine Cardiovascular Disease; Visit Provider Internal Medicine Cardiovascular Disease
DX: E78.5 Hyperlipidemia, unspecified (principal); I25.10 Atherosclerotic heart disease of native coronary artery without angina pectoris; Z79.899 Other long term (current) drug therapy
CPT/HCPCS: 36415; 80061; 80076; 84436; 84443

== ENCOUNTER → 2020-01-31 10:00 | Outpatient (CLI) | payer MEDICARE, OTHER, SELFPAY ==
[2019-12-28 08:43] VITALS: BMI 29.2
[2020-01-31 11:39] LABS: AST(SGOT) 16 U/L (15-37); Alanine Aminotransfer ALT/SGPT 23 U/L (16-61); Albumin, Serum 3.8 g/dL (3.2-5.0); Alkaline Phosphatase 68 U/L (45-117); Bilirubin, Direct 0.14 mg/dL (0.00-0.30); Cholesterol 109 mg/dL (200); Globulin 3.3 g/dL (2.2-4.2); High Density Lipoprotein 43 mg/dL; Protein, Total 7.1 g/dL (6.4-8.2); Triglycerides 76 mg/dL; Very Low Density Lipoprotein 15 mg/dL (5-40)
== END ==
PROVIDERS: PCP Family Medicine; Referring Provider Internal Medicine Cardiovascular Disease; Visit Provider Internal Medicine Cardiovascular Disease
DX: E78.00 Pure hypercholesterolemia, unspecified (principal)
CPT/HCPCS: 36415; 80061; 80076

== ENCOUNTER → 2020-06-21 12:00 | Outpatient (CLI) | payer MEDICARE, OTHER, SELFPAY ==
[2020-06-21 11:16] VITALS: BMI 29.9
--- NOTE | 2020-06-21 12:05 | RAD_ITS ---
STUDY: X-RAY CHEST REASON FOR EXAM: Male, 69 years old. Amiodarone therapy TECHNIQUE: PA and lateral views of the chest. COMPARISON: Comparison is made with prior study dated 11/23/2018. FINDINGS: Stable mild increased interstitial markings at the lung bases suggestive of a mild basilar scarring. There is no demonstrated pleural abnormality. Normal size heart. Normal mediastinum and davion. Normal visualized pulmonary arteries. Normal visualized aortic arch and descending thoracic aorta. There are diffuse degenerative changes of the visualized thoracic spine. Normal visualized ribs, clavicles, and shoulders. There is no demonstrated abnormality of the visualized soft tissue structures of the upper abdomen. RAD/Chest PA and Lateral IMPRESSION: Hyperinflation. Stable mild increased interstitial markings at the lung bases suggestive of bibasilar scarring. Electronically Signed: Felix Jiménez MD at 15:04 EST , Service support ,
== END ==
PROVIDERS: PCP Family Medicine; Referring Provider Internal Medicine Cardiovascular Disease; Visit Provider Internal Medicine Cardiovascular Disease
DX: I25.10 Atherosclerotic heart disease of native coronary artery without angina pectoris (principal); I43 Cardiomyopathy in diseases classified elsewhere; I48.91 Unspecified atrial fibrillation; I48.92 Unspecified atrial flutter; I50.43 Acute on chronic combined systolic (congestive) and diastolic (congestive) heart failure; Z95.5 Presence of coronary angioplasty implant and graft
CPT/HCPCS: 71046

== ENCOUNTER → 2020-06-27 06:42 | Outpatient (CLI) | payer MEDICARE, OTHER, SELFPAY ==
[2020-06-21 11:16] VITALS: BMI 29.9
[2020-06-27 08:53] LABS: AST(SGOT) 10 U/L (15-37); Alanine Aminotransfer ALT/SGPT 19 U/L (16-61); Albumin, Serum 3.9 g/dL (3.2-5.0); Alkaline Phosphatase 77 U/L (45-117); Bilirubin, Direct 0.09 mg/dL (0.00-0.30); Cholesterol 121 mg/dL (200); Globulin 3.4 g/dL (2.2-4.2); High Density Lipoprotein 43 mg/dL; Protein, Total 7.3 g/dL (6.4-8.2); T4 Free Direct 1.05 ng/dL (0.76-1.46); Thyroid Stim Hormone (TSH) 2.52 uIU/mL (0.358-3.74); Triglycerides 81 mg/dL; Very Low Density Lipoprotein 16 mg/dL (5-40)
--- NOTE | 2020-06-28 13:35 | PFT ---
INTRODUCTION: The patient is a 69-year-old male that presents for pulmonary function studies secondary to a diagnosis of atrial fibrillation. Respiratory therapy reports good patient effort. Bronchodilators were used during testing. INTERPRETATION: Forced expiration spirometry demonstrates the presence of a mild large airways obstructive ventilatory defect. There was no significant response to aerosolized bronchodilators. Spirograms are of good quality and do not plateau indicating slow emptying of the lungs. Body plethysmography was performed and reveals an elevated RV, indicative of underlying air trapping. Diffusing capacity by single breath CO is at the lower limits of normal. IMPRESSION: Irreversible mild large airways obstructive ventilatory defect with associated air trapping and mild reduction in diffusing capacity.
== END ==
PROVIDERS: PCP Family Medicine; Visit Provider Internal Medicine Cardiovascular Disease
DX: I25.10 Atherosclerotic heart disease of native coronary artery without angina pectoris (principal); I43 Cardiomyopathy in diseases classified elsewhere; I48.91 Unspecified atrial fibrillation; I48.92 Unspecified atrial flutter; I50.43 Acute on chronic combined systolic (congestive) and diastolic (congestive) heart failure; E78.00 Pure hypercholesterolemia, unspecified; Z95.5 Presence of coronary angioplasty implant and graft
CPT/HCPCS: 36415; 80061; 80076; 84439; 84443; 94060; 94726; 94729

== ENCOUNTER → 2020-12-21 07:54 | Outpatient (CLI) | payer MEDICARE, OTHER, SELFPAY ==
[2020-12-21 09:58] LABS: AST(SGOT) 10 U/L (15-37); Alanine Aminotransfer ALT/SGPT 20 U/L (16-61); Albumin, Serum 3.6 g/dL (3.2-5.0); Alkaline Phosphatase 71 U/L (45-117); Bilirubin, Direct 0.11 mg/dL (0.00-0.30); Cholesterol 117 mg/dL (200); Globulin 3.5 g/dL (2.2-4.2); High Density Lipoprotein 36 mg/dL; Protein, Total 7.1 g/dL (6.4-8.2); T4 Free Direct 1.11 ng/dL (0.76-1.46); Thyroid Stim Hormone (TSH) 3.21 uIU/mL (0.358-3.74); Triglycerides 84 mg/dL; Very Low Density Lipoprotein 17 mg/dL (5-40)
== END ==
PROVIDERS: PCP Family Medicine; Referring Provider Internal Medicine Cardiovascular Disease; Visit Provider Internal Medicine Cardiovascular Disease
DX: I48.91 Unspecified atrial fibrillation (principal); E78.00 Pure hypercholesterolemia, unspecified
CPT/HCPCS: 36415; 80061; 80076; 84439; 84443

== ENCOUNTER 2021-08-02 12:11 | Outpatient (CLI) | payer MEDICARE, OTHER, SELFPAY ==
--- NOTE | 2021-08-02 13:12 | RAD_ITS ---
STUDY: X-RAY CHEST REASON FOR EXAM: Male, 70 years old. CHEST PAIN COMPARISON: None TECHNIQUE: XR Chest 2 Views FINDINGS: There is no demonstrated pleural abnormality. Normal heart size. Normal mediastinum and davion. Normal visualized pulmonary arteries. There is atherosclerotic calcification of the aortic arch with tortuosity. There are diffuse degenerative changes of the visualized thoracic spine. There is degenerative osteoarthritis of the bilateral shoulders. There is no demonstrated abnormality of the visualized soft tissue structures of the upper abdomen. RAD/Chest PA and Lateral IMPRESSION: There are no acute findings. Electronically Signed: Davion Ervin MD at 16:55 EDT ,
--- NOTE | 2021-08-02 14:34 | PFTCOMP_ITS ---
COMPLETE PULMONARY FUNCTION TEST INTERPRETATION Brief HPI: Patient is a 70 year old male, currently under the care of Carmita Ding, who presents to [facility] for complete pulmonary function tests secondary to diagnosis of A. fib. Respiratory therapist reports good effort and reproducible results. Interpretation: Forced expiration spirometry shows a mild large airways obstructive ventilatory defect with an FEV1 of 82% predicted. There is no significant bronchodilator response by strict ATS criteria. Spirograms are of good quality and plateau slowly, indicating slowly emptying areas of the lungs. The respiratory flow volume loop shows decreased expiratory flow rates at high lung volumes consistent with small airways obstruction. Lung volumes by body plethysmography show a normal total lung capacity at 6.93 L, 96% predicted. All other lung volumes are within normal limits. Diffusion capacity by carbon monoxide is decreased at 66% predicted. The airway resistance is slightly elevated. Compared to previous pulmonary function tests from 06/27/2020, there has been no significant change. Impression: Irreversible mild large airways obstructive ventilatory defect with a disproportionate reduction diffusion capacity, but no significant change comp ared to previous testing.
== END 2021-08-02 23:59 | disposition home or self-care (01) ==
PROVIDERS: PCP Family Medicine; Referring Provider Nurse Practitioner Gerontology; Visit Provider Nurse Practitioner Gerontology
DX: I48.91 Unspecified atrial fibrillation (principal); I48.92 Unspecified atrial flutter
CPT/HCPCS: 71046; 94060; 94726; 94729

== ENCOUNTER → 2021-12-13 | Outpatient (CLI) | payer MEDICARE, OTHER, SELFPAY ==
[2021-12-13 12:42] LABS: AST(SGOT) 12 U/L (15-37); Alanine Aminotransfer ALT/SGPT 16 U/L (16-61); Albumin, Serum 3.5 g/dL (3.2-5.0); Alkaline Phosphatase 69 U/L (45-117); Bilirubin, Direct 0.13 mg/dL (0.00-0.30); Cholesterol 109 mg/dL (200); Globulin 3.4 g/dL (2.2-4.2); High Density Lipoprotein 33 mg/dL; Protein, Total 6.9 g/dL (6.4-8.2); Triglycerides 88 mg/dL; Very Low Density Lipoprotein 18 mg/dL (5-40)
== END | disposition home or self-care (01) ==
LOC: LAB 10:34
PROVIDERS: PCP Family Medicine; Referring Provider Nurse Practitioner Gerontology; Visit Provider Nurse Practitioner Gerontology
DX: E78.00 Pure hypercholesterolemia, unspecified (principal)
CPT/HCPCS: 36415; 80061; 80076

== ENCOUNTER 2021-12-24 15:16 | Outpatient (CLI) | payer MEDICARE, OTHER, SELFPAY ==
[2021-12-24 18:06] LABS: Absolute Lymphocyte Count 2.08 X10^3/uL (0.83-4.51); Absolute Neutrophil Count 5.3 X10^3/uL (2.0-7.7); Basophil% 1.2 % (0-1); Eosinophil# 0.37 X10^3/uL; Eosinophils% 4.4 % (0-5); Hemoglobin 13.9 g/dL (13.0-16.5); Lymphocyte # 2.08 X10^3/ul (0.83-4.51); Lymphocyte % 24.6 % (19-41); Mean Corp Hgb Conc 33.1 g/dL (32-36); Mean Corpuscular Hgb 31.5 pg (27.0-32.0); Mean Corpuscular Volume 95.2 fL (80-94); Monocyte# 0.56 X10^3/uL; Monocyte% 6.6 % (0-10); NRBC Flagged by Analyzer 0 % (0-5); Neutrophil # 5.32 X10^3/uL (2.7-7.7); Neutrophil % 62.8 % (47-70); Platelet Count 233 K/mm3 (150-450); RBC Distribution Width CV 13.8 % (11.6-14.6); RBC Distribution Width SD 48.4 fl (35.1-43.9); Red Blood Count 4.41 M/mm3 (4.6-6.2); White Blood Count 8.5 K/mm3 (4.4-11.0)
[2021-12-24 18:30] LABS: Anion Gap 6 (5-15); BUN 20 mg/dL (7-18); BUN/Creat Ratio 15.7 RATIO (10-20); Calcium,Total 8.6 mg/dL (8.5-10.1); Chloride 113 mmol/L (98-107); Creatinine, Serum 1.27 mg/dL (0.70-1.30); EST Glomerular Filtration Rate 60 mL/min (>60); Est Glom Filt Rate - Afr Amer 72 mL/min (>60); Glucose 104 mg/dL (74-106); Potassium 4.2 mmol/L (3.5-5.1); Sodium Level 143 mmol/L (136-145); Thyroid Stim Hormone (TSH) 2.11 uIU/mL (0.358-3.74)
== END 2021-12-24 23:59 | disposition home or self-care (01) ==
PROVIDERS: PCP Family Medicine; Visit Provider Family Medicine
DX: Z12.5 Encounter for screening for malignant neoplasm of prostate (principal); I42.9 Cardiomyopathy, unspecified
CPT/HCPCS: 36415; 80048; 84153; 84443; 85025; G0103

== ENCOUNTER → 2023-01-31 | Outpatient (CLI) | payer MEDICARE, OTHER, SELFPAY ==
--- NOTE | 2023-01-31 08:02 | RAD_ITS ---
INDICATION: Amiodarone -- -- pt states routine check up no current chest complaints EXAMINATION/TECHNIQUE: X-RAY - XR Chest 2 Views COMPARISON: Prior study dated: 08/02/2021 FINDINGS: LINES/DEVICES: None. LUNGS: Low lung volumes. No consolidation, edema or effusion. No pneumothorax. MEDIASTINUM AND CARDIOVASCULAR STRUCTURES: Cardiac silhouette not enlarged. Central airways and mediastinal contour are unremarkable. BONES AND SOFT TISSUES: Mild degenerative changes of the spine. RAD/Chest PA and Lateral IMPRESSION: No acute pulmonary finding. Electronically Signed: Pryiank Alves MD at 6:35 EDT ,
[2023-01-31 08:09] LABS: Absolute Neutrophil Count 5.2 X10^3/uL (2.0-7.7); Basophil% 1.3 % (0-1); Eosinophil# 0.21 X10^3/uL; Eosinophils% 2.7 % (0-5); Hematocrit 41.9 % (40-54); Hemoglobin 13.4 g/dL (13.0-16.5); Lymphocyte % 22.8 % (19-41); Mean Corpuscular Hgb 30.8 pg (27.0-32.0); Mean Corpuscular Volume 96.3 fL (80-94); Mean Platelet Vol. 10.3 fl (6.2-12.0); Monocyte# 0.55 X10^3/uL; NRBC Flagged by Analyzer 0 % (0-5); Neutrophil # 5.23 X10^3/uL (2.7-7.7); Neutrophil % 65.9 % (47-70); Platelet Count 231 K/mm3 (150-450); RBC Distribution Width CV 13.9 % (11.6-14.6); RBC Distribution Width SD 49.2 fl (35.1-43.9); Red Blood Count 4.35 M/mm3 (4.6-6.2); White Blood Count 7.9 K/mm3 (4.4-11.0)
[2023-01-31 08:43] LABS: AST(SGOT) 10 U/L (15-37); Alanine Aminotransfer ALT/SGPT 20 U/L (16-61); Albumin, Serum 3.5 g/dL (3.2-5.0); Alkaline Phosphatase 85 U/L (45-117); Anion Gap 3 (5-15); BUN 15 mg/dL (7-18); BUN/Creat Ratio 12.6 RATIO (10-20); Calcium,Total 8.1 mg/dL (8.5-10.1); Chloride 113 mmol/L (98-107); Cholesterol 102 mg/dL (200); Creatinine, Serum 1.19 mg/dL (0.70-1.30); EST Glomerular Filtration Rate 64 mL/min (>60); Est Glom Filt Rate - Afr Amer 78 mL/min (>60); Globulin 3.4 g/dL (2.2-4.2); Glucose 96 mg/dL (74-106); High Density Lipoprotein 41 mg/dL; Potassium 4.2 mmol/L (3.5-5.1); Protein, Total 6.9 g/dL (6.4-8.2); Sodium Level 141 mmol/L (136-145); Triglycerides 80 mg/dL; Very Low Density Lipoprotein 16 mg/dL (5-40)
[2023-01-31 09:30] LABS: Microalbumin,Random Urine 41.5 mg/L (NO RANGE EST.); Microalbumin:Creatinine Ratio 21.8 mg/g CRE (<30 mg/g CRE)
== END | disposition home or self-care (01) ==
LOC: LAB 07:38
PROVIDERS: PCP Family Medicine; Referring Provider Nurse Practitioner Gerontology; Visit Provider Nurse Practitioner Gerontology
DX: Z79.899 Other long term (current) drug therapy (principal); I48.92 Unspecified atrial flutter; E78.00 Pure hypercholesterolemia, unspecified; I10 Essential (primary) hypertension
CPT/HCPCS: 36415; 71046; 80053; 80061; 82043; 82570; 84443; 85025

== ENCOUNTER → 2023-10-27 | Outpatient (CLI) | payer MEDICARE, OTHER, SELFPAY | END | disposition home or self-care (01) | LOC: PSN 12:37 | PROVIDERS: PCP Family Medicine; Referring Provider Nurse Practitioner Gerontology; Visit Provider Nurse Practitioner Gerontology | DX: Z79.899 Other long term (current) drug therapy (principal) | CPT/HCPCS: 94060; 94726; 94729 ==

== ENCOUNTER → 2023-11-05 | Outpatient (CLI) | payer MEDICARE, OTHER, SELFPAY ==
[2023-11-05 10:47] LABS: Bacteria 0 SEEN /hpf (None Seen); Mucous, Urine 0 SEEN /hpf (<or=2+); Red Blood Cells-Urine 0 SEEN /hpf (0-5); Squamous Epithelial Cells - UA 0 SEEN /hpf (0-5); White Blood Cells 0 SEEN /hpf (0-5)
[2023-11-05 11:17] LABS: Absolute Lymphocyte Count 1.97 X10^3/uL (0.83-4.51); Absolute Neutrophil Count 5.4 X10^3/uL (2.0-7.7); Basophil# 0.11 X10^3/uL; Basophil% 1.3 % (0-1); Eosinophil# 0.15 X10^3/uL; Eosinophils% 1.8 % (0-5); Hematocrit 46.1 % (40-54); Hemoglobin 14.7 g/dL (13.0-16.5); Lymphocyte # 1.97 X10^3/ul (0.83-4.51); Lymphocyte % 23.8 % (19-41); Mean Corp Hgb Conc 31.9 g/dL (32-36); Mean Corpuscular Hgb 30.2 pg (27.0-32.0); Mean Corpuscular Volume 94.7 fL (80-94); Mean Platelet Vol. 10.4 fl (6.2-12.0); Monocyte# 0.59 X10^3/uL; Monocyte% 7.1 % (0-10); NRBC Flagged by Analyzer 0 % (0-5); Neutrophil # 5.42 X10^3/uL (2.7-7.7); Neutrophil % 65.8 % (47-70); Platelet Count 206 K/mm3 (150-450); RBC Distribution Width SD 48.7 fl (35.1-43.9); Red Blood Count 4.87 M/mm3 (4.6-6.2); White Blood Count 8.3 K/mm3 (4.4-11.0)
[2023-11-05 11:20] LABS: Color, Urine Yellow (Yellow); Glucose, Dipstick Normal (Normal); Ketone-Dipstick Negative (Negative); Leukocyte Esterase-Dipstick Negative /ul (Negative); Nitrite-Dipstick Negative (Negative); Occult Blood-Urine Negative /ul (Negative); Protein-Dipstick Negative (Negative); Urine Bilirubin Dipstick Negative (Negative); Urine Clarity Clear (Clear); Urine Urobilinogen Normal (Normal)
[2023-11-05 11:45] LABS: ALB/GLOB Ratio 1.1 RATIO (0.9-2.4); AST(SGOT) 13 U/L (15-37); Alanine Aminotransfer ALT/SGPT 22 U/L (16-61); Albumin, Serum 3.7 g/dL (3.2-5.0); Alkaline Phosphatase 88 U/L (45-117); Anion Gap 7 (5-15); BUN 12 mg/dL (7-18); BUN/Creat Ratio 10.9 RATIO (10-20); CRP < 2.90 mg/L (0.0-3.0); Calcium,Total 8.6 mg/dL (8.5-10.1); Chloride 108 mmol/L (98-107); EST Glomerular Filtration Rate 70 mL/min (>60); Est Glom Filt Rate - Afr Amer 85 mL/min (>60); Globulin 3.5 g/dL (2.2-4.2); Glucose 98 mg/dL (74-106); Lipase 30 U/L (13-75); Magnesium 2.9 mg/dL (1.6-2.6); Protein, Total 7.2 g/dL (6.4-8.2); Sodium Level 138 mmol/L (136-145)
[2023-11-05 11:58] LABS: AST(SGOT) 12 U/L (15-37); Alanine Aminotransfer ALT/SGPT 19 U/L (16-61); Albumin, Serum 3.7 g/dL (3.2-5.0); Alkaline Phosphatase 87 U/L (45-117); Bilirubin, Direct 0.15 mg/dL (0.00-0.30); Cholesterol 145 mg/dL (200); Globulin 3.5 g/dL (2.2-4.2); High Density Lipoprotein 38 mg/dL; Protein, Total 7.2 g/dL (6.4-8.2); T4 Free Direct 1.04 ng/dL (0.76-1.46); Thyroid Stim Hormone (TSH) 2.75 uIU/mL (0.358-3.74); Triglycerides 125 mg/dL; Very Low Density Lipoprotein 25 mg/dL (5-40)
[2023-11-07 15:08] LABS: PROEL- A/G Ratio 1.3 (0.7-1.7); PROEL- Albumin 3.7 g/dL (2.9-4.4); PROEL- Alpha-1 Globulin 0.2 g/dL (0.0-0.4); PROEL- Alpha-2 Globulin 0.8 g/dL (0.4-1.0); PROEL- Gamma Globulin 0.9 g/dL (0.4-1.8); PROEL- Globulin, Total 2.9 g/dL (2.2-3.9); PROEL- TOTAL PROTEIN 6.6 g/dL (6.0-8.5); PROEL-M-Spike Not Observed g/dL (Not Observed)
== END | disposition home or self-care (01) ==
LOC: LAB 10:37
PROVIDERS: PCP Family Medicine; Referring Provider Nurse Practitioner Gerontology; Visit Provider Nurse Practitioner Gerontology
DX: M54.50 Low back pain, unspecified (principal); R82.90 Unspecified abnormal findings in urine; E78.00 Pure hypercholesterolemia, unspecified; Z79.899 Other long term (current) drug therapy
CPT/HCPCS: 36415; 80053; 80061; 80076; 81001; 83690; 83735; 84165; 84439; 84443; 85025; 86140

== ENCOUNTER → 2024-07-08 | Outpatient (CLI) | payer MEDICARE, OTHER, SELFPAY ==
--- NOTE | 2024-07-08 13:01 | CT_ITS ---
PROCEDURE: LOW DOSE CT LUNG SCREENING REASON FOR EXAM: Smoker 1/2 pack per day for 50 + years. TECHNIQUE: Low Dose CT Lung Screening without contrast. Contiguous axial scans of 1.25 mm slice thicknesses. Sagittal and coronal reconstruction images were obtained. One or more dose reduction techniques were used (e.g., automated exposure control, adjustment of mA and/or kv according to patient size, use of iterative reconstruction technique). COMPARISON: Low-dose CT lung screening study dated 07/24/2018. FINDINGS: PULMONARY NODULES: (Only nodules >6mm are reported). Pulmonary Nodules: No concerning pulmonary nodules. A small noncalcified round pleural-based micronodule in the anterior right upper lobe, axial image 132 measuring 0.5 cm. A 0.5 cm pleural-based, well-circumscribed, noncalcified nodule is seen in the right lower lobe posteriorly, axial image 178. A few small scattered areas of ground-glass opacification are noted in the bilateral lungs. Lymph Nodes:No mediastinal hilar or axillary lymphadenopathy. Heart and Vasculature:Normal heart size. No pericardial effusion.Thoracic aorta and pulmonary arteries have normal contours; noncontrast technique limits evaluation. Atherosclerotic calcifications involving the aorta. Coronary Artery Calcifications: Moderate to severe atherosclerotic calcific disease. Lungs and Airways: The lungs are normally expanded and clear. Moderate diffuse centrilobular emphysematous changes throughout both lungs. Pleura:No pleural effusion. No pneumothorax. Upper Abdomen:Visualized portions of the upper abdominal viscera are unremarkable. Bones:Mild multilevel spondylosis. CT/Low Dose CT Lung Screening IMPRESSION: 1. BASED ON THE ACR LUNG RADS FOR THE MOST SUSPICIOUS NODULE (IF ANY) DESCRIBE D IN THIS REPORT, THE OVERALL LUNG RADS SCORE IS 2. 2. BENIGN APPEARANCE. RECOMMEND 12-MONTH SCREENING LDCT.. 3. SMOKING CESSATION COUNSELING IS RECOMMENDED IF THE PATIENT IS STILL SMOKING . 4. CORONARY ARTERIAL CALCIFICATIONS. Mild multilevel spondylosis. One or more dose reduction techniques were used (e.g., Automated exposure contr ol, adjustment of the mA and/or kV according to patient size, use of iterative reconstruction technique). The following information is provided for reference:Lung-RADS 2021 Assessment C ategories. Additional information involving Lung-RADS is available at www.[email or web address].org. 0-INCOMPLETE 1-NEGATIVE:No nodules or definitely benign nodules. Complete, central, popcorn , or centric ring calcifications OR fat containing 2-BENIGN APPEARANCE (based on imaging features or indolent behavior). Juxtaple ural nodule: < 10mm AND solid; smooth margins; oval, entiform, or triangular shape Solid nodule: <6mm at baseline or new< 4mm Part solid Nodule: < 6mm total mean diameter at baseline Nonsolid nodule:(GGN) < 30mm OR >=30mm stable or slowly growing Airway nodule, subsegmental at baseline, new, or stable Category 3 nodule stabl e or decreased in size at 6-month follow-up CT or Category 3 or 4A nodules that resolve on follow-up OR category 4B findings prov en to be benign following diagnotic work up. 3 - Probably Benign (Based on imaging features or behavior) Solid Nodule: >= 6 to <8mm at baseline OR new 4 to <6mm Part-solid nodule: >= 6mm toal mean diam. with solid component <6mm at baseline OR new < 6mm total mean diam. Non-solid nodule: GGN >= 30mm at baseline or new Atypical pulmonary cyst: Growing cystic component (mean diam.) of thick-walled cyst Category 4A nodule stable or decreased in size at 3-month follow-up CT (excl.ai rway). 4A - Suspicious Solid nodule: >=8 to < 15mm at baseline OR growing < 8mm OR new 6 to < 8mm Part solid nodule: >= 6mm total mean diam. w/ solid component >=6mm to < 8mm at baseline OR new or growing < 4mm solid component Airway nodule, segmental or more proximal at baseline or new Atypical pulmonary cyst: Thick-walled OR multilocular at baseline OR becomes mu ltilocular 4B - Very Suspicious Airway nodule, segmental or more proximal, and stable or growing Solid nodule: >= 15mm at baseline OR new or growing >= 8mm Part solid nodule: Solid component >= 8mm OR new or growing >= 4mm solid compon ent Atypical pulmonary cyst: Thick-walled with growing wall thickness/nodularity OR Growing multilocular (mean diam.) OR Multilocular with increased loculation or new/increased opacity Slow-growing solid or part solid nodule w/ growth over multiple screening exams 4X - Very Suspicious Category 3 or 4 nodules with additional features that increase the suspicion fo r lung cancer. S - Clinically Significant or potentially significant findings (non-lung cancer ) Reading Location: [place] [id number]
== END | disposition home or self-care (01) ==
LOC: CT 12:54
PROVIDERS: PCP Family Medicine; Referring Provider Nurse Practitioner Family; Visit Provider Nurse Practitioner Family
DX: Z12.2 Encounter for screening for malignant neoplasm of respiratory organs (principal); F17.210 Nicotine dependence, cigarettes, uncomplicated
CPT/HCPCS: 71271